=== PATIENT | male | born 1955 | race Hispanic/Latino ===

== ENCOUNTER 2017-08-12 11:55 | Inpatient (IN) | payer MEDICARE, OTHER ==
[~2017-08-12] VITALS: Ht 177.8 cm; Wt 102.1 kg
[~2017-08-12 11:55] MED LIST: ADVAIR 250-501 EACH; ADVAIR 250-501 EACH INH; ALLOPURINOL100 MG PO; AMLODIPINE BESY10 MG PO; ASPIR 8181 MG PO; ATORVASTATIN CA20 MG PO; ATORVASTATIN CA80 MG PO; BIDIL TABLET1 EACH PO; COMBIVENT RESPIM4 GM IH; COREG12.5 MG PO; GLIMEPIRIDE2 MG PO; HUMULIN R100 UNIT/2; Insulin Detemir SQ; LANTUS100 UNITS/ SQ; LASIX40 MG PO; LASIX80 MG PO; LEVAQUIN250 MG PO; LORATADINE10 MG PO; METOLAZONE5 MG PO; MIRALAX17 GM PO; MUCINEX DM ER1 EACH PO; NAC600 MG PO; NOVOLOG100 UNITS1 SQ; PLAVIX75 MG PO; PROTONIX40 MG/ML PO; SERTRALINE HCL25 MG PO; SODIUM BICARBO650 MG PO; SODIUM POL15 GM/60 M PO; SPIRONOLACTONE25 MG PO; TYLENOL # 31 EA PO
[2017-08-12] MEDS ORDERED: ASPIRIN 81 MG CHEW TAB PO ONE ×2 (12:45→14:45)
[2017-08-12] MEDS ORDERED: ASPIRIN 325 MG TAB PO ONE (12:45)
[2017-08-12] MEDS ORDERED: ACETAMINOPHEN 1000 MG/100 ML IV STA (12:47)
[2017-08-12] MEDS ORDERED: ALBUTEROL/IPRATROPIUM 3 ML NEB NEB ONE (13:00)
[2017-08-12] MEDS ORDERED: IPRATROPIUM BROMIDE 0.02% 2.5 ML NEB NEB ONE (13:00)
--- NOTE | 2017-08-12 13:29 | Diagnostic Imaging Report ---
EXAMINATION: CHEST SINGLE (PORTABLE) INDICATION: \S\SOB \S\[id number] \S\1240 COMPARISON: Chest radiograph 02/04/2017 FINDINGS: AP view TUBES and LINES: AICD is again noted. Previously leads overlying the right atrium and coronary sinus are currently difficult to visualize, likely secondary to film underpenetration and portable technique. LUNGS: Lungs are well inflated. Increased hilar fullness and interstitial opacities. PLEURA: No pleural effusion or pneumothorax. HEART AND MEDIASTINUM: Stable enlargement of the cardiac silhouette. BONES AND SOFT TISSUES: No acute findings. UPPER ABDOMEN: No free air under the diaphragm. IMPRESSION: Interstitial edema with stable cardiomegaly. Signed by: DR. Sandro Avelar MD on 08/12/2017 1:26 PM
[2017-08-12 13:35] LABS: BASOPHILS # (AUTO) 0.1 (0.0-0.1); BASOPHILS % 0.3 % (0.0-1.0); EOSINOPHILS # (AUTO) 0.2 (0.0-0.4); EOSINOPHILS % 1.5 % (0.0-6.0); HEMATOCRIT 39.3 % (38.2-49.6); HEMOGLOBIN 13.3 g/dL (14.0-18.0); LYMPHOCYTES # (AUTO) 1.7 (1.0-3.2); LYMPHOCYTES % 10.8 % (18.0-39.1); MEAN CORPUSCULAR HEMOGLOBIN 30.3 pg (28-32); MEAN CORPUSCULAR HGB CONC 33.8 g/dL (31-35); MEAN CORPUSCULAR VOLUME 89.5 fL (81-99); MONOCYTES # (AUTO) 1.1 (0.2-0.8); MONOCYTES % 6.8 % (4.4-11.3); NEUTROPHILS # (AUTO) 12.8 (2.1-6.9); PLATELET COUNT 174 x10e3/uL (140-360); RED BLOOD COUNT 4.39 x10e6/uL (4.3-5.7); RED CELL DISTRIBUTION WIDTH 13.2 % (11.7-14.4)
[2017-08-12 13:37] LABS: INR 0.93; PROTHROMBIN TIME 12.9 seconds (11.9-14.5)
[2017-08-12 13:38] LABS: PARTIAL THROMBOPLASTIN TIME 32.3 seconds (23.8-35.5)
[2017-08-12 13:45] LABS: ALBUMIN 3.7 g/dL (3.5-5.0); ALBUMIN/GLOBULIN RATIO 0.9 (0.8-2.0); ANION GAP 14.7 mmol/L (8-16); CALCIUM 10.2 mg/dL (8.4-10.2); CREATININE, SERUM 2.75 mg/dL (0.72-1.25); POTASSIUM 3.7 mmol/L (3.5-5.1)
[2017-08-12 13:52] LABS: CREATINE KINASE MB 3.3 ng/mL (0.00-5.00); TROPONIN I 0.209 ng/mL (0-0.300)
[2017-08-12] MEDS ORDERED: SODIUM CHLORIDE FLUSH 10 ML SYR INJ PRN (14:45)
[2017-08-12] MEDS ORDERED: AZITHROMYCIN 500MG/SOD CHL 0.9% 250ML BAG IV SCH (14:45)
[2017-08-12] MEDS ORDERED: CEFTRIAXONE SOD 1 GM VIAL IV SCH (14:45)
[2017-08-12] MEDS ORDERED: DEXTROSE 50% SYRINGE 50 ML IV PRN (14:45)
[2017-08-12] MEDS ORDERED: AZITHROMYCIN 500MG/NS 250 ML 250 ML IV SCH (15:00)
[2017-08-12] MEDS ORDERED: CARVEDILOL 12.5 MG TAB PO SCH (17:00)
[2017-08-12] MEDS ORDERED: POLYETHYLENE GLYCOL 3350 17 GM PACK PO PRN (17:00)
[2017-08-12] MEDS: INSULIN REGULAR, HUMAN 100 UNIT/1 ML 3ML VIAL SQ SCH ×2 (17:13→21:17)
[2017-08-12] MEDS: SALMETEROL/FLUTICASONE 250/50 INH SCH (17:13)
[2017-08-12] MEDS ORDERED: ALBUTEROL/IPRATROPIUM 3 ML NEB NEB PRN (17:15)
[2017-08-12] MEDS: CARVEDILOL 12.5 MG TAB PO SCH (17:27)
[2017-08-12] MEDS: GUAIFENESIN 600MG/DEXTROMETHORPHAN 30MG TABSR PO SCH ×2 (17:27→23:39)
[2017-08-12] MEDS: ALLOPURINOL 100 MG TAB PO SCH (17:27)
[2017-08-12] MEDS ORDERED: NON-FORMULARY MEDICATION (Ipratropium/Albuterol Sulfate (Combivent Respimat Inhal Spray) 4 IH SCH (18:00)
[2017-08-12] MEDS: IPRATROPIUM/ALBUTEROL SULFATE 4 GM INH INH SCH (18:31)
--- NOTE | 2017-08-12 18:45 | History and Physical ---
HISTORY OF PRESENT ILLNESS: A 52-year-old male patient of mine who presented to the emergency room with a complaint of worsening shortness of breath that started 7 days ago. The patient was having severe shortness of breath and cough with fever. The patient was also having worsening shortness of breath on laying down. The patient has to . The patient also leg swelling. PAST MEDICAL HISTORY: Diabetes mellitus, CHF, hypertensive heart disease, renal failure. PAST SURGICAL HISTORY: The patient had appendectomy, cardiac stent and pacemaker placement. ALLERGIES: NO KNOWN DRUG ALLERGIES. SOCIAL HISTORY: The patient is a former smoker and is not using any alcohol. REVIEW OF SYSTEMS: Chest pain, shortness of breath, cough, wheezing, fever. PHYSICAL EXAMINATION GENERAL: A middle-aged male patient lying in the bed, not in any acute distress. VITAL SIGNS: Temperature 98.5, pulse rate 85, respiratory rate 18, blood pressure 130/80. HEENT: Normocephalic. NECK: No JVD present. LUNGS: Bilateral rhonchi and rales. HEART: S1, S2, regular, a systolic murmur. ABDOMEN: Soft, bowel sounds present. NEUROLOGIC: No focal neurological deficit. ADMITTING IMPRESSION AND DIAGNOSES 1. Acute respiratory insufficiency, requiring BiPAP mask ventilation. 2. Acute pulmonary edema. 3. Congestive heart failure, diastolic with systolic dysfunction. 4. Gwqvw-qw-fgwxfrp possibility of underlying pneumonia. 5. Worsening renal failure. 6. Chronic obstructive pulmonary disease. 7. Diabetes mellitus. 8. Hypertension. 9. Hyperlipidemia. PLAN: The patient will be admitted with the above diagnosis. Treat the patient with IV antibiotics with IV Rocephin and azithromycin. Give IV Lasix. Monitor renal function. Give the patient BiPAP mask ventilation. Job#: [id number]
--- NOTE | 2017-08-12 19:40 | Consultation ---
DATE OF CONSULTATION: August 12, 2017 An unfortunate 62-year-old gentleman admitted with sudden onset of chills, but no fever, history of swelling, history of recurrent pneumonias in the past, history of heart failure, history of chronic kidney disease and solitary kidney, history of presumed obstructive sleep apnea, history of insulin-dependent diabetes. He cannot recall all of his medications. ALLERGIES: NO KNOWN DRUG ALLERGIES. According to record, he takes Allopurinol, amlodipine, aspirin, Lipitor, Coreg, Plavix, Advair, Amaryl, Guaifenesin DM, insulin, Combivent, Ismo, Isordil and hydralazine. Recently on levofloxacin. He has been on Loratadine, Protonix, MiraLAX, sertraline, sodium bicarbonate. SOCIAL HISTORY: He was born in [place]. He is retired from the [employer]. PHYSICAL EXAMINATION GENERAL: He is a well-developed, burly, somewhat obese white male, sitting up. He has now been tolerating BiPAP which he required earlier for respiratory distress. VITAL SIGNS: Temperature 98.5, pulse 90, respirations 18, blood pressure 145/70. HEENT: Normocephalic, atraumatic. NECK: Full. LUNGS: Diminished breath sounds, a few rales. HEART: Regular rhythm. ABDOMEN: Nontender. EXTREMITIES: Trace edema. IMPRESSION 1. Pneumonia. 2. Congestive heart failure. PLAN: Cautious diuresis, broad-spectrum antibiotics for community-acquired pneumonia and to cover Staph aureus. Thank you for this kind referral. Job#: [id number]
[2017-08-12] MEDS: ALBUTEROL/IPRATROPIUM 3 ML NEB NEB SCH (20:50)
[2017-08-12] MEDS ORDERED: SODIUM BICARBONATE 650 MG TAB PO SCH (21:00)
[2017-08-12] MEDS ORDERED: NON-FORMULARY MEDICATION (Atorvastatin Calcium 80 MG) PO SCH (21:00)
[2017-08-12] MEDS ORDERED: HYDRALAZINE HCL PO SCH (21:00)
[2017-08-12] MEDS ORDERED: INSULIN DETEMIR LEVEMIR SQ SCH (21:00)
[2017-08-12] MEDS ORDERED: ISOSORB DINIT PO SCH (21:00)
[2017-08-12 21:12] LABS: CREATINE KINASE MB 2.5 ng/mL (0.00-5.00); TROPONIN I 0.207 ng/mL (0-0.300)
[2017-08-12] MEDS: SODIUM BICARBONATE 650 MG TAB PO SCH (21:16)
[2017-08-12] MEDS: DOXYCYCLINE HYCLATE TABLET 100 MG TAB PO SCH (21:16)
[2017-08-12] MEDS: HEPARIN SOD (PORCINE) 5,000 UNIT/ML VIAL SC SCH (21:16)
[2017-08-12] MEDS: HYDRALAZINE PO SCH (21:16)
[2017-08-12] MEDS: ATORVASTATIN 40 MG TAB PO SCH (21:16)
[2017-08-12] MEDS: ISOSORBIDE DINITRATE PO SCH (21:16)
[2017-08-12] MEDS: INSULIN DETEMIR 100 UNIT/ML PEN SQ SCH (21:17)
[2017-08-12] MEDS: INSULIN LISPRO 100 UNIT/1 ML 3ML VIAL SQ SCH (21:17)
[2017-08-12 23:54] LABS: BILIRUBIN,URINE NEGATIVE (NEGATIVE); KETONES,URINE NEGATIVE (NEGATIVE); LEUKOCYTE ESTERASE ,URINE NEGATIVE (NEGATIVE); NITRITE,URINE NEGATIVE (NEGATIVE); PROTEIN,URINE DIPSTICK NEGATIVE (NEGATIVE); URINE UROBILINOGEN 0.2 mg/dL (0.2 - 1)
[2017-08-12 23:55] LABS: CLARITY,URINE CLEAR (CLEAR); COLOR,URINE YELLOW (YELLOW)
[2017-08-13 00:05] LABS: BACTERIA,URINE RARE /HPF; EPITHELIAL CELLS,URINE RARE /LPF; RBC,URINE 0-5 /HPF (0-5); WBC,URINE (MAN) 0-5 /HPF (0-5)
[2017-08-13] MEDS: ALBUTEROL/IPRATROPIUM 3 ML NEB NEB SCH ×3 (03:02→11:45)
[2017-08-13 06:14] LABS: BASOPHILS % 0.2 % (0.0-1.0); EOSINOPHILS # (AUTO) 0.3 (0.0-0.4); EOSINOPHILS % 1.4 % (0.0-6.0); HEMATOCRIT 37.7 % (38.2-49.6); HEMOGLOBIN 12.5 g/dL (14.0-18.0); LYMPHOCYTES # (AUTO) 1.6 (1.0-3.2); LYMPHOCYTES % 8.9 % (18.0-39.1); MEAN CORPUSCULAR HEMOGLOBIN 30.1 pg (28-32); MEAN CORPUSCULAR HGB CONC 33.2 g/dL (31-35); MEAN CORPUSCULAR VOLUME 90.8 fL (81-99); MONOCYTES # (AUTO) 1.3 (0.2-0.8); MONOCYTES % 7.2 % (4.4-11.3); NEUTROPHILS # (AUTO) 14.4 (2.1-6.9); NEUTROPHILS % 81.8 % (38.7-80.0); PLATELET COUNT 184 x10e3/uL (140-360); RED BLOOD COUNT 4.15 x10e6/uL (4.3-5.7); RED CELL DISTRIBUTION WIDTH 13.3 % (11.7-14.4)
--- NOTE | 2017-08-13 06:32 | Diagnostic Imaging Report ---
EXAMINATION: CHEST SINGLE (PORTABLE) INDICATION: Pneumonia. COMPARISON: 08/12/2017 and 05/18/2017 FINDINGS: TUBES and LINES: AICD is intact. LUNGS: Lungs are not well inflated. There are bibasilar atelectasis. There is interval improvement in perihilar interstitial opacities, consistent with interstitial edema. PLEURA: No pleural effusion or pneumothorax. HEART AND MEDIASTINUM: Cardiac size is moderately enlarged. There are atherosclerotic calcifications within the aorta. BONES AND SOFT TISSUES: No acute osseous lesion. Soft tissues are unremarkable. UPPER ABDOMEN: No free air under the diaphragm. IMPRESSION: Interval improvement in cardiogenic pulmonary edema Signed by: Dr. Jose Jaime M.D. on 08/13/2017 6:28 AM
[2017-08-13 06:42] LABS: ALBUMIN 3.4 g/dL (3.5-5.0); ALBUMIN/GLOBULIN RATIO 0.9 (0.8-2.0); ANION GAP 13.9 mmol/L (8-16); CALCIUM 9.8 mg/dL (8.4-10.2); CREATININE, SERUM 2.55 mg/dL (0.72-1.25); MAGNESIUM 2.5 MG/DL (1.3-2.1); POTASSIUM 3.9 mmol/L (3.5-5.1)
[2017-08-13 06:43] LABS: TROPONIN I 0.198 ng/mL (0-0.300)
[2017-08-13] MEDS: GUAIFENESIN 600MG/DEXTROMETHORPHAN 30MG TABSR PO SCH ×4 (07:28→23:45)
[2017-08-13] MEDS: IPRATROPIUM/ALBUTEROL SULFATE 4 GM INH INH SCH ×4 (07:28→19:00)
[2017-08-13] MEDS: PANTOPRAZOLE SOD 40 MG TABEC PO SCH (07:29)
[2017-08-13] MEDS: CARVEDILOL 12.5 MG TAB PO SCH ×2 (07:29→17:15)
[2017-08-13] MEDS: SPIRONOLACTONE 25 MG TAB PO SCH (07:29)
[2017-08-13] MEDS: SALMETEROL/FLUTICASONE 250/50 INH SCH (07:29)
[2017-08-13] MEDS: CEFTRIAXONE SOD 1 GM VIAL IV SCH (07:29)
[2017-08-13] MEDS: INSULIN REGULAR, HUMAN 100 UNIT/1 ML 3ML VIAL SQ SCH ×4 (07:29→21:32)
[2017-08-13] MEDS: METOLAZONE 5 MG TAB PO SCH (07:30)
[2017-08-13] MEDS: ASPIRIN 81 MG CHEW TAB PO SCH (07:30)
[2017-08-13] MEDS: CLOPIDOGREL BISULFATE 75 MG TAB PO SCH (07:30)
[2017-08-13] MEDS: ALLOPURINOL 100 MG TAB PO SCH ×2 (07:30→17:27)
[2017-08-13] MEDS: AMLODIPINE BESYLATE 10 MG TAB PO SCH (07:30)
[2017-08-13] MEDS: LORATADINE 10 MG TAB PO SCH (07:33)
[2017-08-13] MEDS: INSULIN LISPRO 100 UNIT/1 ML 3ML VIAL SQ SCH ×3 (07:34→21:00)
[2017-08-13] MEDS: DOXYCYCLINE HYCLATE TABLET 100 MG TAB PO SCH ×2 (07:34→20:37)
[2017-08-13] MEDS: SODIUM BICARBONATE 650 MG TAB PO SCH ×3 (07:34→20:37)
[2017-08-13] MEDS: SERTRALINE HCL 50 MG TAB PO SCH (07:34)
[2017-08-13] MEDS: INSULIN DETEMIR 100 UNIT/ML PEN SQ SCH ×2 (07:34→21:32)
[2017-08-13] MEDS: HYDRALAZINE PO SCH ×3 (07:34→20:37)
[2017-08-13] MEDS: HEPARIN SOD (PORCINE) 5,000 UNIT/ML VIAL SC SCH ×2 (07:34→21:31)
[2017-08-13] MEDS: ISOSORBIDE DINITRATE PO SCH ×3 (07:34→20:37)
[2017-08-13] MEDS ORDERED: GLIMEPIRIDE 2 MG TAB PO SCH (09:00)
[2017-08-13] MEDS ORDERED: NON-FORMULARY MEDICATION (Sertraline Hcl 25 MG) PO SCH (09:00)
[2017-08-13] MEDS ORDERED: FUROSEMIDE 40 MG TAB PO SCH (09:00)
[2017-08-13] MEDS ORDERED: HOME MEDICATION--PATIENTS OWN PO SCH (09:00)
[2017-08-13] MEDS ORDERED: FUROSEMIDE INJ 10 MG/ML 4 ML VIAL IV NR (10:30)
--- NOTE | 2017-08-13 13:12 | Consultation ---
DATE OF CONSULTATION: August 13, 2017 REASON FOR CONSULTATION: CHF. CHIEF COMPLAINT: Shortness of breath. HISTORY OF PRESENT ILLNESS: This is a 62-year-old male with a history of CAD, status post PCI in 2007, chronic systolic CHF, status post bi-V pacemaker/defibrillator in 2014, hypertension, diabetes, COPD, chronic kidney disease stage 4, WILMA. The patient presented to [facility] ER with complaints of shortness of breath for about 7 days and cough with subjective fevers. The symptoms had worsened. Therefore, he came to the ER for evaluation. The patient was in the ER on BiPAP therapy. He does state the breathing is slightly better since he has been here. On labs, BNP was noted at 1145. He has been receiving Lasix diuretic therapy with improved symptoms. Also was noted with white count of 17 and has been treated for possible pneumonia. The patient reports 7 days of cough and shortness of breath with subjective fevers. He denies any sick contacts at home. He does also report some orthopnea and some mild lower extremity edema, reports right greater than left. He denies any chest pains. PAST MEDICAL HISTORY: Hypertension, diabetes, CHF, coronary artery disease status post PCI in 2007, biventricular device with defibrillator in 2014, COPD, WILMA, chronic kidney disease stage 4. Ex-smoker. SURGICAL HISTORY: Appendectomy, biventricular device, cardiac stents, tonsils and adenoids. SOCIAL HISTORY: He is with 4 kids. Retired from the [employer] from [employer]. He quit smoking in 2009. He did smoke, however, about 3 packs per day times 40 years. Positive for alcohol use, occasional beer. FAMILY HISTORY: Positive for hypertension, diabetes and heart disease. ALLERGIES: NO KNOWN ALLERGIES. MEDICATIONS: Cardiac medications include: 1. Spironolactone 50 mg daily. 2. Amlodipine 10 mg daily. 3. Metolazone 5 mg on Thursday, Thursday and Thursday. 4. Aspirin 81 mg daily. 5. Lasix 80 mg twice a day. 6. Plavix 75 mg daily. 7. Atorvastatin 80 mg daily. 8. Carvedilol 25 mg daily. REVIEW OF SYSTEMS GENERAL: Denies any weight gains. Positive for fever and chills. No night sweats. SKIN: Denies any rashes or sores. HEENT: No trauma. No nausea or vomiting. No visual changes. No vertigo, tinnitus or earache. No rhinorrhea, stuffiness, sneezing, epistaxis, hoarseness, sore throat. CARDIAC: Denies any chest pain. Positive for dyspnea on exertion. No palpitations. Positive for orthopnea. No PND. Positive for lower extremity edema. RESPIRATORY: Positive for shortness of breath per HPI. Positive for cough. GI: No changes in appetite. No nausea or vomiting. No diarrhea or constipation. No bleeding, hemoptysis, melena. URINARY: Positive for frequency and urgency. Denies any dysuria or hematuria. VASCULAR: Positive for lower extremity leg edema, right greater than left. MUSCULOSKELETAL: Denies any muscle weakness. Positive for generalized joint pains. NEUROLOGIC: Denies any tingling, tremors, weakness, paralysis, blackouts, fainting, seizures. HEMATOLOGY: Denies any bruising or bleeding. ENDOCRINE: Denies any heat or cold intolerance, any excessive sweating, polyuria, polydipsia or polyphagia. PHYSICAL EXAMINATION VITAL SIGNS: Height 70 inches, weight 225 pounds. Blood pressure 138/78, respiratory rate 20, pulse 83, temperature 98.8. GENERAL: Appears his stated age. In some moderate distress. SKIN: No rashes or bruises noted. HEENT: Normocephalic. Pupils are equal and reactive. The extraocular movements are intact. Trachea is midline. Oral mucosa is pink. On BiPAP therapy. NECK: No JVD. No carotid bruits. HEART: Regular rate and rhythm. Soft systolic murmur, right upper quadrant. PMI in about the 5th intercostal space. ABDOMEN: Soft, nontender. No organomegaly noted; however, he is obese. MUSCULOSKELETAL: Good muscle strength throughout. VASCULAR: +2 radial bilateral pulses, +1 PT and DP pulses. NEUROLOGIC: Cranial nerves II through XII seem intact. LABS: White count 17, hemoglobin 12, hematocrit 37, platelets 184. Chemistry: Sodium 142, potassium 3.9, chloride 106, BUN 83, creatinine 2.5. Troponin 0.2, next 0.2, next 0.19. BNP 1145. IMAGING: Chest x-ray showing interstitial edema. EKG showing V-paced rhythm at 140. ASSESSMENT 1. Respiratory failure secondary to pneumonia. 2. Vqdcg-re-hwjqjtg congestive heart failure exacerbation. 3. Chronic obstructive pulmonary disease. 4. Venra-is-qpsbrzr kidney disease, stage 4. 5. Hypertension. 6. Hyperlipidemia. 7. Diabetes. 8. Ex-smoker. PLAN 1. Agree with continuing antibiotic therapy for presumed pneumonia/COPD exacerbation. 2. Continue heart failure therapy with spironolactone, Lasix, carvedilol. 3. Will go ahead and get an echo to evaluate heart function and structure. 4. Continue tele monitoring for now. 5. Renal has been consulted to aid in this patient with known chronic kidney disease. Thank you very much for this consult. We will follow the patient and adjust cardiac therapy as the course progresses. Dictated by: Silver James NP Job#: [id number] SEEN AND EVALUATED IN er, AGREE WITH NOTE MTDD
--- NOTE | 2017-08-13 14:09 | Consultation ---
DATE OF CONSULTATION: August 13, 2017 REASON FOR CONSULTATION: Chronic kidney disease stage 4. HPI: Mr. Fortune is a 62-year-old man with COPD, hypertension, hyperlipidemia, insulin-dependent diabetes and CHF. He missed his last appointment as he stated he did not have transportation. Over the past few days, he has a progressively worsening shortness of breath. It worsens with lying flat and improves with sitting up. It is not associated with cough or fevers, although yesterday he was having chills. There is no recent travel or sick contacts at home. He continues to take the Lasix and spironolactone that he is on at home during this time. He has not had a recent change in diet. He has a history of stage 4 CKD. His baseline creatinine has ranged from the 2.3 to 2.8 mg/dL. Upon presentation, creatinine yesterday was 2.7 mg/dL and today is 2.5 mg/dL. He has been started on IV diuresis. REVIEW OF SYSTEMS: Denies fevers, chills, nausea, vomiting, diarrhea, chest pain, palpitations, abdominal pain, pain or burning with urination, numbness or tingling in upper or lower extremities, change in mood, change in appetite, changes in thirst. Otherwise, the 14-point review of systems is negative. PAST MEDICAL HISTORY 1. Diabetes. 2. Hypertension. 3. Hyperlipidemia. 4. COPD. 5. Congestive heart failure. PAST SURGICAL HISTORY: Appendectomy, cardiac catheterization, pacemaker placement. ALLERGIES: NO KNOWN DRUG ALLERGIES. FAMILY HISTORY: No renal disease in the family. SOCIAL HISTORY: No alcohol, tobacco or illicit drug use. PHYSICAL EXAMINATION GENERAL: He seems to be in respiratory distress, currently on BiPAP. VITAL SIGNS: Temperature 98.8, heart rate 81, respiratory rate 20, O2 sat is 100% on BiPAP, blood pressure 138/78 mmHg. HEENT: NC, AT, EOMI. PERRLA. NECK: Positive for distended jugular venous pulse. Supple. LUNGS: Crackles at the bases bilaterally, no wheezing. HEART: Tachycardic. Regular rate and rhythm. ABDOMEN: Soft, distended. Positive bowel sounds. EXTREMITIES: Positive for pitting edema, intact pulses. NEURO: Cranial nerves II through XII are grossly intact. No focal deficits. SKIN: No rashes or lesions. MUSCULOSKELETAL: Normal inspection. LABS: Reviewed on electronic medical record. Significant for a white blood cell count of 16 with a hemoglobin of 12.5 and platelets of 184 with BUN of 83 and creatinine of 2.5 mg/dL. IMAGING: Reviewed on electronic medical record. Chest x-ray performed early today showed interval improvement in cardiogenic pulmonary edema. ASSESSMENT AND PLAN: Mr. Fortune is a 62-year-old man who presents with acute respiratory failure in the setting of irckg-qw-procsuj systolic heart failure. 1. Chronic kidney disease stage 4, currently has baseline renal function. Continue to avoid contrast, NSAIDs especially in the setting of volume overload. 2. Metabolic acidosis. Continue sodium bicarbonate. 3. Acute respiratory failure. We will switch Lasix to IV b.i.d. Based on current GFR, current dose of Lasix will not penetrate the tubules. 4. Accelerated hypertension. Continue Coreg. 5. Possible community-acquired pneumonia, has received the dose of ceftriaxone and azithromycin and currently on doxycycline. Thank you, for allowing me to participate in the care of patient, Mr. Fortune. I will continue to follow closely. Job#: [id number] VAS MTDD
[2017-08-13 15:15] VITALS: BP 149/83
[2017-08-13 15:16] VITALS: BP 142/85
[2017-08-13 17:37] VITALS: BP 140/85
[2017-08-13 19:00] VITALS: BP 135/82
[2017-08-13] MEDS: FUROSEMIDE INJ 10 MG/ML 4 ML VIAL IV SCH (20:36)
[2017-08-13] MEDS: METHYLPREDNISOLONE SOD SUCC 40 MG/ML VIAL IV SCH (20:36)
[2017-08-13] MEDS: ATORVASTATIN 40 MG TAB PO SCH (20:37)
[2017-08-13] MEDS: ACETAMINOPHEN 325 MG TAB PO PRN (21:15)
[2017-08-14] VITALS (7 sets, daily range): BP systolic 120–148; BP diastolic 61–82
[2017-08-14] MEDS: GUAIFENESIN 600MG/DEXTROMETHORPHAN 30MG TABSR PO SCH ×3 (05:36→18:06)
[2017-08-14 06:25] LABS: BASOPHILS % 0.3 % (0.0-1.0); EOSINOPHILS # (AUTO) 0.2 (0.0-0.4); EOSINOPHILS % 1.8 % (0.0-6.0); HEMATOCRIT 35.4 % (38.2-49.6); HEMOGLOBIN 11.6 g/dL (14.0-18.0); LYMPHOCYTES # (AUTO) 1.5 (1.0-3.2); LYMPHOCYTES % 11.5 % (18.0-39.1); MEAN CORPUSCULAR HEMOGLOBIN 29.9 pg (28-32); MEAN CORPUSCULAR HGB CONC 32.8 g/dL (31-35); MEAN CORPUSCULAR VOLUME 91.2 fL (81-99); MONOCYTES # (AUTO) 1.1 (0.2-0.8); MONOCYTES % 8.6 % (4.4-11.3); NEUTROPHILS # (AUTO) 10.1 (2.1-6.9); NEUTROPHILS % 77.3 % (38.7-80.0); PLATELET COUNT 163 x10e3/uL (140-360); RED BLOOD COUNT 3.88 x10e6/uL (4.3-5.7); RED CELL DISTRIBUTION WIDTH 13.1 % (11.7-14.4)
[2017-08-14 06:48] LABS: ALBUMIN/GLOBULIN RATIO 0.8 (0.8-2.0); CALCIUM 9.8 mg/dL (8.4-10.2); CREATININE, SERUM 3.02 mg/dL (0.72-1.25); PHOSPHORUS 4.3 MG/DL (2.3-4.7)
[2017-08-14] MEDS: IPRATROPIUM/ALBUTEROL SULFATE 4 GM INH INH SCH ×2 (07:17→19:00)
[2017-08-14] MEDS: INSULIN REGULAR, HUMAN 100 UNIT/1 ML 3ML VIAL SQ SCH ×4 (07:30→21:00)
[2017-08-14] MEDS: SALMETEROL/FLUTICASONE 250/50 INH SCH ×2 (07:45→21:35)
[2017-08-14] MEDS: INSULIN LISPRO 100 UNIT/1 ML 3ML VIAL SQ SCH ×3 (07:45→17:45)
[2017-08-14] MEDS: PANTOPRAZOLE SOD 40 MG TABEC PO SCH (08:30)
[2017-08-14] MEDS: ALBUTEROL/IPRATROPIUM 3 ML NEB NEB SCH ×4 (08:30→23:00)
[2017-08-14] MEDS: GLIMEPIRIDE 2 MG TAB PO SCH (08:30)
[2017-08-14] MEDS: ISOSORBIDE DINITRATE PO SCH ×3 (09:00→22:11)
[2017-08-14] MEDS: INSULIN DETEMIR 100 UNIT/ML PEN SQ SCH ×2 (09:00→22:12)
[2017-08-14] MEDS: HEPARIN SOD (PORCINE) 5,000 UNIT/ML VIAL SC SCH ×2 (09:00→22:12)
[2017-08-14] MEDS: HYDRALAZINE PO SCH ×3 (09:00→22:11)
[2017-08-14] MEDS: METHYLPREDNISOLONE SOD SUCC 40 MG/ML VIAL IV SCH (09:00)
[2017-08-14] MEDS: CARVEDILOL 12.5 MG TAB PO SCH ×2 (09:22→18:06)
[2017-08-14] MEDS: SPIRONOLACTONE 25 MG TAB PO SCH (09:22)
[2017-08-14] MEDS: ASPIRIN 81 MG CHEW TAB PO SCH (09:22)
[2017-08-14] MEDS: FUROSEMIDE INJ 10 MG/ML 4 ML VIAL IV SCH ×2 (09:22→22:10)
[2017-08-14] MEDS: CEFTRIAXONE SOD 1 GM VIAL IV SCH (09:22)
[2017-08-14] MEDS: LORATADINE 10 MG TAB PO SCH (09:22)
[2017-08-14] MEDS: METOLAZONE 5 MG TAB PO SCH (09:23)
[2017-08-14] MEDS: AMLODIPINE BESYLATE 10 MG TAB PO SCH (09:23)
[2017-08-14] MEDS: DOXYCYCLINE HYCLATE TABLET 100 MG TAB PO SCH ×2 (09:23→22:11)
[2017-08-14] MEDS: CLOPIDOGREL BISULFATE 75 MG TAB PO SCH (09:23)
[2017-08-14] MEDS: ALLOPURINOL 100 MG TAB PO SCH ×2 (09:23→18:06)
[2017-08-14] MEDS: SERTRALINE HCL 50 MG TAB PO SCH (09:23)
[2017-08-14] MEDS: SODIUM BICARBONATE 650 MG TAB PO SCH ×3 (09:23→22:11)
[2017-08-14 10:33] LABS: CHOL/HDL RATIO 2.9 (3.9-4.7)
[2017-08-14] MEDS: ACETAMINOPHEN 325 MG TAB PO PRN (12:06)
--- NOTE | 2017-08-14 14:30 | Progress Note ---
DATE: August 14, 2017 REASON FOR CONSULTATION: CKD, stage 4. SUBJECTIVE: The patient has no complaints today. Breathing has improved considerably. OBJECTIVE GENERAL: Patient is sitting comfortably on chair on nasal cannula. VITAL SIGNS: Temperature 98.4, heart rate 81, respiratory rate 18, blood pressure 128/69. O2 sat is 99% on nasal cannula. HEENT: NC, AT, EOMI. LUNGS: Crackles at the bases bilaterally. ABDOMEN: Soft, distended. Positive bowel sounds. EXTREMITIES: Positive for edema. LABS: Reviewed on electronic medical record. Significant for a hemoglobin of 11.6, BUN 94, creatinine 3.0, bicarb 29. IMAGING: Reviewed on electronic medical record. Chest x-ray performed yesterday showed interval improvement in cardiogenic pulmonary edema. ASSESSMENT AND PLAN: This 62-year-old man with chronic kidney disease, stage 4, presents with acute respiratory failure in the setting of pulmonary edema. 1. Chronic kidney disease stage 4. Continue to avoid contrast and NSAIDs. At baseline renal function. 2. Acute respiratory failure. Continue Lasix 80 mg IV q.12 h. Kidney function may slightly worsen while we are trying to diurese, and it has been difficult to balance even as an outpatient to keep him dry without causing worsening renal function. 3. Metabolic acidosis. Continue sodium bicarbonate. 4. Community-acquired pneumonia on ceftriaxone and azithromycin. Job#: [id number]
[2017-08-14] MEDS: ATORVASTATIN 40 MG TAB PO SCH (22:11)
[2017-08-15] VITALS (7 sets, daily range): BP systolic 109–147; BP diastolic 61–80
[2017-08-15] MEDS: GUAIFENESIN 600MG/DEXTROMETHORPHAN 30MG TABSR PO SCH ×4 (00:14→16:57)
[2017-08-15] MEDS: ALBUTEROL/IPRATROPIUM 3 ML NEB NEB SCH ×6 (02:19→23:21)
[2017-08-15 05:46] LABS: BASOPHILS # (AUTO) 0.1 (0.0-0.1); BASOPHILS % 0.4 % (0.0-1.0); EOSINOPHILS # (AUTO) 0.4 (0.0-0.4); EOSINOPHILS % 2.7 % (0.0-6.0); HEMATOCRIT 34.5 % (38.2-49.6); HEMOGLOBIN 11.6 g/dL (14.0-18.0); LYMPHOCYTES # (AUTO) 1.9 (1.0-3.2); LYMPHOCYTES % 14.4 % (18.0-39.1); MEAN CORPUSCULAR HEMOGLOBIN 30.4 pg (28-32); MEAN CORPUSCULAR HGB CONC 33.6 g/dL (31-35); MEAN CORPUSCULAR VOLUME 90.6 fL (81-99); MONOCYTES % 7.9 % (4.4-11.3); NEUTROPHILS # (AUTO) 9.7 (2.1-6.9); NEUTROPHILS % 74.2 % (38.7-80.0); PLATELET COUNT 191 x10e3/uL (140-360); RED BLOOD COUNT 3.81 x10e6/uL (4.3-5.7); RED CELL DISTRIBUTION WIDTH 13.2 % (11.7-14.4)
[2017-08-15 06:07] LABS: ALBUMIN 3.1 g/dL (3.5-5.0); ALBUMIN/GLOBULIN RATIO 0.8 (0.8-2.0); ANION GAP 18.7 mmol/L (8-16); CALCIUM 9.9 mg/dL (8.4-10.2); CREATININE, SERUM 3.26 mg/dL (0.72-1.25); PHOSPHORUS 5.7 MG/DL (2.3-4.7); POTASSIUM 3.7 mmol/L (3.5-5.1)
[2017-08-15] MEDS: ACETAMINOPHEN 325 MG TAB PO PRN ×2 (06:36→18:13)
[2017-08-15] MEDS: PANTOPRAZOLE SOD 40 MG TABEC PO SCH (06:36)
[2017-08-15] MEDS: IPRATROPIUM/ALBUTEROL SULFATE 4 GM INH INH SCH ×4 (07:00→19:00)
[2017-08-15] MEDS: INSULIN REGULAR, HUMAN 100 UNIT/1 ML 3ML VIAL SQ SCH ×4 (07:30→21:35)
[2017-08-15] MEDS: INSULIN LISPRO 100 UNIT/1 ML 3ML VIAL SQ SCH ×3 (08:00→16:30)
[2017-08-15] MEDS: HEPARIN SOD (PORCINE) 5,000 UNIT/ML VIAL SC SCH ×2 (08:30→21:35)
[2017-08-15] MEDS: INSULIN DETEMIR 100 UNIT/ML PEN SQ SCH ×2 (08:30→22:46)
[2017-08-15] MEDS: GLIMEPIRIDE 2 MG TAB PO SCH (08:30)
[2017-08-15] MEDS: SALMETEROL/FLUTICASONE 250/50 INH SCH ×2 (09:00→20:30)
[2017-08-15] MEDS: CEFTRIAXONE SOD 1 GM VIAL IV SCH (09:05)
[2017-08-15] MEDS: METOLAZONE 5 MG TAB PO SCH (09:05)
[2017-08-15] MEDS: HYDRALAZINE PO SCH ×3 (09:05→21:40)
[2017-08-15] MEDS: ISOSORBIDE DINITRATE PO SCH ×3 (09:05→21:40)
[2017-08-15] MEDS: DOXYCYCLINE HYCLATE TABLET 100 MG TAB PO SCH ×2 (09:05→21:40)
[2017-08-15] MEDS: SODIUM BICARBONATE 650 MG TAB PO SCH ×3 (09:05→21:40)
[2017-08-15] MEDS: ALLOPURINOL 100 MG TAB PO SCH ×2 (09:05→16:20)
[2017-08-15] MEDS: AMLODIPINE BESYLATE 10 MG TAB PO SCH (09:05)
[2017-08-15] MEDS: FUROSEMIDE INJ 10 MG/ML 4 ML VIAL IV SCH (09:05)
[2017-08-15] MEDS: SPIRONOLACTONE 25 MG TAB PO SCH (09:05)
[2017-08-15] MEDS: CARVEDILOL 12.5 MG TAB PO SCH ×2 (09:05→16:20)
[2017-08-15] MEDS: CLOPIDOGREL BISULFATE 75 MG TAB PO SCH (09:05)
[2017-08-15] MEDS: SERTRALINE HCL 50 MG TAB PO SCH (09:05)
[2017-08-15] MEDS: ASPIRIN 81 MG CHEW TAB PO SCH (09:05)
[2017-08-15] MEDS: LORATADINE 10 MG TAB PO SCH (09:05)
--- NOTE | 2017-08-15 12:58 | Progress Note ---
DATE: August 15, 2017 NEPHROLOGY PROGRESS NOTE REASON FOR CONSULTATION: Chronic kidney disease stage 4. SUBJECTIVE: Patient has no complaints. States he is feeling better. Questioning when he can go home. OBJECTIVE GENERAL: Sitting comfortably. No acute distress. VITAL SIGNS: Temperature 98.2, heart rate 80, respiratory rate 17, blood pressure is 130/65. HEENT: NC/AT, EOMI. LUNGS: Clear to auscultation bilaterally. No wheezing, no rales. HEART: Regular rate and rhythm. S1 and S2 normal. EXTREMITIES: Minimal pitting edema in the lower extremities bilaterally. Imaging was reviewed in electronic medical record. Labs show a creatinine of 3.2 from 3 yesterday and 2.5 the day before. BUN of 110. ASSESSMENT AND PLAN 1. A 62-year-old man with chronic kidney disease stage 4, admitted with acute respiratory failure. At this point, lungs are completely clear and is 100% on oxygen. Request weaning down the oxygen and will switch him from Lasix 80 mg IV q.12 to p.o. Will continue the metolazone. 2. Accelerated hypertension. Improved. Continue amlodipine and Coreg. 3. Metabolic acidosis. Continue sodium bicarbonate. Job#: [id number] EV
[2017-08-15] MEDS ORDERED: HYDRALAZINE HCL 25 MG TAB PO SCH (15:00)
[2017-08-15] MEDS: FUROSEMIDE 40 MG TAB PO SCH (16:57)
[2017-08-15] MEDS: ATORVASTATIN 40 MG TAB PO SCH (21:40)
[2017-08-16 00:14] VITALS: BP 128/70
[2017-08-16] MEDS: GUAIFENESIN 600MG/DEXTROMETHORPHAN 30MG TABSR PO SCH ×4 (00:32→16:59)
[2017-08-16] MEDS: ALBUTEROL/IPRATROPIUM 3 ML NEB NEB SCH ×6 (03:18→23:03)
[2017-08-16 04:43] VITALS: BP 134/67
[2017-08-16] MEDS: FUROSEMIDE 40 MG TAB PO SCH (05:25)
[2017-08-16] MEDS: SALMETEROL/FLUTICASONE 250/50 INH SCH ×2 (07:00→19:28)
[2017-08-16] MEDS: IPRATROPIUM/ALBUTEROL SULFATE 4 GM INH INH SCH ×4 (07:00→19:00)
[2017-08-16] MEDS: INSULIN REGULAR, HUMAN 100 UNIT/1 ML 3ML VIAL SQ SCH ×4 (07:30→19:37)
[2017-08-16 08:00] VITALS: BP 148/68
[2017-08-16] MEDS: PANTOPRAZOLE SOD 40 MG TABEC PO SCH (08:07)
[2017-08-16] MEDS: GLIMEPIRIDE 2 MG TAB PO SCH (08:07)
[2017-08-16] MEDS ORDERED: ISOSORBIDE MONONITRATE 20 MG TAB PO SCH (09:00)
[2017-08-16] MEDS: CLOPIDOGREL BISULFATE 75 MG TAB PO SCH (09:20)
[2017-08-16] MEDS: ASPIRIN 81 MG CHEW TAB PO SCH (09:20)
[2017-08-16] MEDS: CARVEDILOL 12.5 MG TAB PO SCH ×2 (09:20→16:59)
[2017-08-16] MEDS: CEFTRIAXONE SOD 1 GM VIAL IV SCH (09:20)
[2017-08-16] MEDS: HYDRALAZINE PO SCH ×3 (09:20→20:36)
[2017-08-16] MEDS: AMLODIPINE BESYLATE 10 MG TAB PO SCH (09:20)
[2017-08-16] MEDS: LORATADINE 10 MG TAB PO SCH (09:20)
[2017-08-16] MEDS: ISOSORBIDE DINITRATE PO SCH ×3 (09:20→20:36)
[2017-08-16] MEDS: SERTRALINE HCL 50 MG TAB PO SCH (09:21)
[2017-08-16] MEDS: METOLAZONE 5 MG TAB PO SCH (09:21)
[2017-08-16] MEDS: DOXYCYCLINE HYCLATE TABLET 100 MG TAB PO SCH ×2 (09:21→20:36)
[2017-08-16] MEDS: ALLOPURINOL 100 MG TAB PO SCH ×2 (09:21→16:59)
[2017-08-16] MEDS: SODIUM BICARBONATE 650 MG TAB PO SCH ×3 (09:21→20:36)
[2017-08-16 09:23] VITALS: BP 148/68
[2017-08-16] MEDS: INSULIN LISPRO 100 UNIT/1 ML 3ML VIAL SQ SCH ×3 (09:33→16:30)
[2017-08-16] MEDS: INSULIN DETEMIR 100 UNIT/ML PEN SQ SCH ×2 (09:33→20:52)
[2017-08-16] MEDS: HEPARIN SOD (PORCINE) 5,000 UNIT/ML VIAL SC SCH ×2 (09:33→20:51)
[2017-08-16 12:34] LABS: BASOPHILS % 0.3 % (0.0-1.0); EOSINOPHILS # (AUTO) 0.3 (0.0-0.4); EOSINOPHILS % 2.7 % (0.0-6.0); HEMATOCRIT 32.9 % (38.2-49.6); HEMOGLOBIN 11.1 g/dL (14.0-18.0); LYMPHOCYTES # (AUTO) 1.3 (1.0-3.2); LYMPHOCYTES % 13.3 % (18.0-39.1); MEAN CORPUSCULAR HEMOGLOBIN 30.4 pg (28-32); MEAN CORPUSCULAR HGB CONC 33.7 g/dL (31-35); MEAN CORPUSCULAR VOLUME 90.1 fL (81-99); MONOCYTES # (AUTO) 0.7 (0.2-0.8); MONOCYTES % 6.9 % (4.4-11.3); NEUTROPHILS # (AUTO) 7.6 (2.1-6.9); NEUTROPHILS % 76.4 % (38.7-80.0); PLATELET COUNT 210 x10e3/uL (140-360); RED BLOOD COUNT 3.65 x10e6/uL (4.3-5.7); RED CELL DISTRIBUTION WIDTH 13.2 % (11.7-14.4)
[2017-08-16 12:51] LABS: ANION GAP 15.9 mmol/L (8-16); CALCIUM 9.4 mg/dL (8.4-10.2); CREATININE, SERUM 3.14 mg/dL (0.72-1.25); PHOSPHORUS 4.7 MG/DL (2.3-4.7); POTASSIUM 3.9 mmol/L (3.5-5.1)
[2017-08-16 15:11] VITALS: BP 147/67
[2017-08-16] MEDS: FUROSEMIDE INJ 10 MG/ML 4 ML VIAL IV SCH (16:59)
[2017-08-16 19:38] VITALS: BP 136/74
[2017-08-16] MEDS: ATORVASTATIN 40 MG TAB PO SCH (20:36)
[2017-08-17] MEDS: GUAIFENESIN 600MG/DEXTROMETHORPHAN 30MG TABSR PO SCH ×4 (00:11→17:30)
[2017-08-17 00:21] VITALS: BP 135/78
[2017-08-17] MEDS: ALBUTEROL/IPRATROPIUM 3 ML NEB NEB SCH ×6 (03:17→23:25)
[2017-08-17 05:17] VITALS: BP 152/77
[2017-08-17 06:21] LABS: BASOPHILS % 0.3 % (0.0-1.0); EOSINOPHILS # (AUTO) 0.3 (0.0-0.4); EOSINOPHILS % 2.4 % (0.0-6.0); HEMATOCRIT 34.8 % (38.2-49.6); HEMOGLOBIN 11.8 g/dL (14.0-18.0); LYMPHOCYTES # (AUTO) 1.4 (1.0-3.2); LYMPHOCYTES % 11.6 % (18.0-39.1); MEAN CORPUSCULAR HEMOGLOBIN 30.4 pg (28-32); MEAN CORPUSCULAR HGB CONC 33.9 g/dL (31-35); MEAN CORPUSCULAR VOLUME 89.7 fL (81-99); MONOCYTES # (AUTO) 0.8 (0.2-0.8); MONOCYTES % 6.5 % (4.4-11.3); NEUTROPHILS # (AUTO) 9.4 (2.1-6.9); NEUTROPHILS % 78.9 % (38.7-80.0); PLATELET COUNT 237 x10e3/uL (140-360); RED BLOOD COUNT 3.88 x10e6/uL (4.3-5.7); RED CELL DISTRIBUTION WIDTH 13.2 % (11.7-14.4)
[2017-08-17 06:42] LABS: ANION GAP 14.6 mmol/L (8-16); CALCIUM 9.8 mg/dL (8.4-10.2); CREATININE, SERUM 2.95 mg/dL (0.72-1.25); POTASSIUM 3.6 mmol/L (3.5-5.1)
[2017-08-17] MEDS: IPRATROPIUM/ALBUTEROL SULFATE 4 GM INH INH SCH ×4 (07:00→20:35)
--- NOTE | 2017-08-17 07:03 | Diagnostic Imaging Report ---
EXAMINATION: CHEST SINGLE (PORTABLE) INDICATION: Congestive heart failure COMPARISON: 08/13/2017 FINDINGS: TUBES and LINES: AICD is intact. LUNGS: Lungs are well inflated. There are bibasilar atelectasis. There is interval worsening in perihilar interstitial opacities, consistent with interstitial edema. PLEURA: No pleural effusion or pneumothorax. HEART AND MEDIASTINUM: Cardiac size is moderately enlarged. There are atherosclerotic calcifications within the aorta. BONES AND SOFT TISSUES: No acute osseous lesion. Soft tissues are unremarkable. UPPER ABDOMEN: No free air under the diaphragm. IMPRESSION: Interval worsening in cardiogenic pulmonary edema Signed by: Dr. Jose Jaime M.D. on 08/17/2017 6:57 AM
[2017-08-17] MEDS: INSULIN REGULAR, HUMAN 100 UNIT/1 ML 3ML VIAL SQ SCH ×4 (07:30→21:00)
[2017-08-17] MEDS: SALMETEROL/FLUTICASONE 250/50 INH SCH ×2 (07:37→20:35)
[2017-08-17 08:00] VITALS: BP_SYST 122; BP_SYST 127; BP_DIAS 78
[2017-08-17] MEDS: HYDRALAZINE PO SCH ×3 (09:00→20:22)
[2017-08-17] MEDS: HEPARIN SOD (PORCINE) 5,000 UNIT/ML VIAL SC SCH ×2 (09:00→20:58)
[2017-08-17] MEDS: ISOSORBIDE DINITRATE PO SCH ×3 (09:00→20:22)
[2017-08-17] MEDS: AMLODIPINE BESYLATE 10 MG TAB PO SCH (09:00)
[2017-08-17] MEDS: PANTOPRAZOLE SOD 40 MG TABEC PO SCH (09:00)
[2017-08-17] MEDS: INSULIN LISPRO 100 UNIT/1 ML 3ML VIAL SQ SCH ×3 (09:00→17:00)
[2017-08-17] MEDS: CEFTRIAXONE SOD 1 GM VIAL IV SCH (09:30)
[2017-08-17] MEDS: FUROSEMIDE INJ 10 MG/ML 4 ML VIAL IV SCH ×2 (09:30→17:00)
[2017-08-17] MEDS: CLOPIDOGREL BISULFATE 75 MG TAB PO SCH (09:30)
[2017-08-17] MEDS: ALLOPURINOL 100 MG TAB PO SCH ×2 (09:30→17:00)
[2017-08-17] MEDS: SERTRALINE HCL 50 MG TAB PO SCH (09:30)
[2017-08-17] MEDS: SODIUM BICARBONATE 650 MG TAB PO SCH ×3 (09:30→20:22)
[2017-08-17] MEDS: ASPIRIN 81 MG CHEW TAB PO SCH (09:30)
[2017-08-17] MEDS: CARVEDILOL 12.5 MG TAB PO SCH ×2 (09:30→17:00)
[2017-08-17] MEDS: GLIMEPIRIDE 2 MG TAB PO SCH (09:30)
[2017-08-17] MEDS: METOLAZONE 5 MG TAB PO SCH (09:30)
[2017-08-17] MEDS: LORATADINE 10 MG TAB PO SCH (09:30)
[2017-08-17] MEDS: DOXYCYCLINE HYCLATE TABLET 100 MG TAB PO SCH ×2 (09:30→20:22)
[2017-08-17] MEDS: INSULIN DETEMIR 100 UNIT/ML PEN SQ SCH ×2 (10:00→21:00)
[2017-08-17] MEDS ORDERED: LACTULOSE SYRUP 20 GM/30 ML UDC PO PRN (10:45)
[2017-08-17 12:00] VITALS: BP 127/74
--- NOTE | 2017-08-17 15:47 | Progress Note ---
DATE: August 17, 2017 REASON FOR CONSULTATION: Chronic kidney disease stage 4. SUBJECTIVE: The patient feels dyspnea is improving considerably. He still feels that he has a lot of phlegm that he is unable to get out. OBJECTIVE GENERAL: Sitting comfortably in chair on 3 liters nasal cannula. VITAL SIGNS: Temperature 98, heart rate 80, respiratory rate 19, blood pressure is 127/74, O2 sat 98% on 3 liters nasal cannula. HEENT: NC/AT, EOMI. LUNGS: Crackles at the bases bilaterally. HEART: Regular rate and rhythm. ABDOMEN: Soft, somewhat distended, positive bowel sounds. EXTREMITIES: Slight pitting edema in the lower extremities bilaterally. Labs were reviewed per electronic medical records and significant for a hemoglobin of 11.8, BUN 113 with a creatinine of 2.9. Imaging: Chest x-ray performed today with slight worsening of pulmonary edema. ASSESSMENT AND PLAN 1. A 62-year-old man with chronic kidney disease stage 4, who presented in acute respiratory failure in the setting of pneumonia and qyqpi-lm-aeikaky systolic heart failure. 2. Acute respiratory insufficiency. His BUN is rising and has been a tough balance even as an outpatient. To keep him euvolemic without worsening his renal function. Continue Lasix 80 IV b.i.d. for now. 3. Hypertension, controlled on amlodipine and Carvedilol. 4. Metabolic acidosis. Continue sodium bicarbonate. Bicarb level is currently ___. 5. Hyperphosphatemia. Phosphate level is now normal. Will hold off on phosphate binders. Job#: [id number]
[2017-08-17 16:00] VITALS: BP 131/76
[2017-08-17] MEDS: ATORVASTATIN 40 MG TAB PO SCH (20:22)
[2017-08-18] MEDS: ALBUTEROL/IPRATROPIUM 3 ML NEB NEB SCH ×6 (00:15→19:15)
[2017-08-18] MEDS: GUAIFENESIN 600MG/DEXTROMETHORPHAN 30MG TABSR PO SCH ×5 (01:04→23:02)
[2017-08-18] MEDS: IPRATROPIUM/ALBUTEROL SULFATE 4 GM INH INH SCH ×4 (07:06→19:00)
[2017-08-18] MEDS: SALMETEROL/FLUTICASONE 250/50 INH SCH ×2 (07:17→19:15)
[2017-08-18 08:09] VITALS: BP 138/76
[2017-08-18] MEDS: ASPIRIN 81 MG CHEW TAB PO SCH (08:30)
[2017-08-18] MEDS: ALLOPURINOL 100 MG TAB PO SCH ×2 (08:30→17:35)
[2017-08-18] MEDS: CARVEDILOL 12.5 MG TAB PO SCH ×2 (08:30→17:35)
[2017-08-18] MEDS: LORATADINE 10 MG TAB PO SCH (08:30)
[2017-08-18] MEDS: CLOPIDOGREL BISULFATE 75 MG TAB PO SCH (08:30)
[2017-08-18] MEDS: DOXYCYCLINE HYCLATE TABLET 100 MG TAB PO SCH ×2 (08:30→21:03)
[2017-08-18] MEDS: SERTRALINE HCL 50 MG TAB PO SCH (08:30)
[2017-08-18] MEDS: SODIUM BICARBONATE 650 MG TAB PO SCH ×3 (08:30→21:03)
[2017-08-18] MEDS: METOLAZONE 5 MG TAB PO SCH (08:30)
[2017-08-18] MEDS: ISOSORBIDE DINITRATE PO SCH ×3 (08:30→21:03)
[2017-08-18] MEDS: CEFTRIAXONE SOD 1 GM VIAL IV SCH (08:30)
[2017-08-18] MEDS: HYDRALAZINE PO SCH ×3 (08:30→21:03)
[2017-08-18] MEDS: PANTOPRAZOLE SOD 40 MG TABEC PO SCH (08:30)
[2017-08-18] MEDS: AMLODIPINE BESYLATE 10 MG TAB PO SCH (08:30)
[2017-08-18] MEDS: GLIMEPIRIDE 2 MG TAB PO SCH (08:30)
[2017-08-18] MEDS: INSULIN DETEMIR 100 UNIT/ML PEN SQ SCH ×2 (09:00→22:10)
[2017-08-18] MEDS: HEPARIN SOD (PORCINE) 5,000 UNIT/ML VIAL SC SCH ×2 (09:00→22:09)
--- NOTE | 2017-08-18 12:08 | Progress Note ---
DATE: August 18, 2017 REASON FOR CONSULTATION: CKD, stage 4. SUBJECTIVE: The patient is now off oxygen. Feels well and is eager to go home. OBJECTIVE GENERAL: Sitting comfortably in chair in no distress. VITAL SIGNS: Heart rate 82, respiratory rate 18, blood pressure 131/76, temperature 98.3. The O2 sat is 96%. HEENT: NC, AT, EOMI. LUNGS: Clear to auscultation bilaterally. No wheezing or rales. HEART: Regular rate and rhythm. EXTREMITIES: No edema. Labs were reviewed on the electronic medical record. BNP is pending for today. ASSESSMENT AND PLAN 1. A 62-year-old man with acute respiratory failure in the setting of volume overload and ndzsf-hv-dxprcym heart failure. Will switch Lasix to p.o. 80 mg p.o. b.i.d. and continue p.o. metolazone. 2. Azotemia. BUN is elevated. No signs of uremia. This has been explained to the patient prior to this admission and on this admission as well that he is headed towards dialysis. Will start working towards discussing options. No overt indication to start dialysis yet. 3. Metabolic acidosis. Continue sodium bicarbonate. Job#: [id number]
[2017-08-18 12:11] LABS: ANION GAP 18.7 mmol/L (8-16); CALCIUM 10.4 mg/dL (8.4-10.2); CREATININE, SERUM 3.02 mg/dL (0.72-1.25); POTASSIUM 3.7 mmol/L (3.5-5.1)
[2017-08-18] MEDS: INSULIN LISPRO 100 UNIT/1 ML 3ML VIAL SQ SCH ×3 (12:15→17:34)
[2017-08-18] MEDS: INSULIN REGULAR, HUMAN 100 UNIT/1 ML 3ML VIAL SQ SCH ×4 (12:15→21:00)
[2017-08-18 12:20] VITALS: BP 141/80
[2017-08-18] MEDS: FUROSEMIDE 40 MG TAB PO SCH (17:35)
[2017-08-18 19:46] VITALS: BP 127/72
[2017-08-18] MEDS: ATORVASTATIN 40 MG TAB PO SCH (21:03)
[2017-08-19] MEDS: ALBUTEROL/IPRATROPIUM 3 ML NEB NEB SCH ×3 (00:15→06:48)
[2017-08-19 00:20] VITALS: BP 129/80
[2017-08-19] MEDS: GUAIFENESIN 600MG/DEXTROMETHORPHAN 30MG TABSR PO SCH (05:00)
[2017-08-19] MEDS: FUROSEMIDE 40 MG TAB PO SCH (05:00)
[2017-08-19 05:37] VITALS: BP 146/71
[2017-08-19 06:37] LABS: ANION GAP 18.1 mmol/L (8-16); CALCIUM 9.9 mg/dL (8.4-10.2); CREATININE, SERUM 3.11 mg/dL (0.72-1.25); PHOSPHORUS 4.3 MG/DL (2.3-4.7); POTASSIUM 4.1 mmol/L (3.5-5.1)
[2017-08-19 07:50] VITALS: BP 130/83
[2017-08-19] MEDS: PANTOPRAZOLE SOD 40 MG TABEC PO SCH (08:11)
[2017-08-19] MEDS: INSULIN REGULAR, HUMAN 100 UNIT/1 ML 3ML VIAL SQ SCH (08:13)
[2017-08-19] MEDS: INSULIN LISPRO 100 UNIT/1 ML 3ML VIAL SQ SCH (08:13)
[2017-08-19] MEDS: GLIMEPIRIDE 2 MG TAB PO SCH (08:16)
[2017-08-19 09:05] VITALS: BP 130/83
[2017-08-19] MEDS: CLOPIDOGREL BISULFATE 75 MG TAB PO SCH (09:11)
[2017-08-19] MEDS: CEFTRIAXONE SOD 1 GM VIAL IV SCH (09:11)
[2017-08-19] MEDS: SODIUM BICARBONATE 650 MG TAB PO SCH (09:11)
[2017-08-19] MEDS: ASPIRIN 81 MG CHEW TAB PO SCH (09:12)
[2017-08-19] MEDS: DOXYCYCLINE HYCLATE TABLET 100 MG TAB PO SCH (09:12)
[2017-08-19] MEDS: LORATADINE 10 MG TAB PO SCH (09:13)
[2017-08-19] MEDS: AMLODIPINE BESYLATE 10 MG TAB PO SCH (09:15)
[2017-08-19] MEDS: METOLAZONE 5 MG TAB PO SCH (09:17)
[2017-08-19] MEDS: ALLOPURINOL 100 MG TAB PO SCH (09:17)
[2017-08-19] MEDS: CARVEDILOL 12.5 MG TAB PO SCH (09:18)
[2017-08-19] MEDS: SERTRALINE HCL 50 MG TAB PO SCH (09:18)
[2017-08-19] MEDS: HEPARIN SOD (PORCINE) 5,000 UNIT/ML VIAL SC SCH (09:19)
[2017-08-19] MEDS: INSULIN DETEMIR 100 UNIT/ML PEN SQ SCH (09:35)
[2017-08-19] MEDS: ISOSORBIDE DINITRATE PO SCH (10:13)
[2017-08-19] MEDS: HYDRALAZINE PO SCH (10:13)
[2017-08-19 11:36] VITALS: BP 120/75
--- NOTE | 2017-08-19 12:51 | Discharge Summary ---
He is a 62-year-old male patient with severe comorbidities and chronic conditions. Patient has multiple organ problems. The patient had presented to the emergency room with respiratory distress. ADMITTING IMPRESSION AND DIAGNOSES 1. Acute respiratory failure. 2. Decompensated congestive heart failure. 3. Pulmonary edema. 4. Pneumonia. 5. Chronic obstructive pulmonary disease exacerbation. 6. Dzfxo-pk-hffeqqj renal failure. 7. Worsening renal failure. 8. Diabetes mellitus with renal failure. 9. Chronic kidney disease. 10. Hypertensive heart disease. 11. Hyperlipidemia. HOSPITAL COURSE SUMMARY: The patient was admitted with the above diagnoses. The patient was treated with IV Rocephin, Zithromax and steroids. The patient was requiring BiPAP mask ventilation. The patient had severe respiratory distress, mostly impending to be needed to be intubated. The patient was able to be managed on BiPAP mask ventilation. The patient's diuretics were adjusted, and he is going home on Lasix and diuretics. The patient had cardiology, pulmonary and renal consultations done. The patient was given antibiotics, Rocephin and Zithromax, and doxycycline was added. The patient's diuretics were adjusted. The patient had persistent CHF symptoms, so the diuretics were adjusted with IV Lasix. Physical therapy and occupational therapy were given. Now, upon stabilization, the patient will be discharged home and will be followed up as an outpatient. JORDEN CARLSON MD Job#: [id number]
--- NOTE | 2017-08-19 14:34 | Progress Note ---
DATE: August 19, 2017 REASON FOR CONSULTATION: CKD, stage 4. SUBJECTIVE: The patient feels well, eager to go home today. No acute events overnight. On room air now. OBJECTIVE GENERAL: Standing comfortably in room, in no acute distress. VITAL SIGNS: Temperature 97.8, heart rate 81, respiratory rate 20, blood pressure 130/83. The O2 sat is 99%. LUNGS: Clear to auscultation bilaterally. No wheezing or rales. HEART: Regular rate and rhythm. EXTREMITIES: Minimal pitting edema. Labs were reviewed on the electronic medical record. BUN 116, creatinine 3.1, calcium 9.9, phosphorus 4.3. Imaging was reviewed on the electronic medical record. ASSESSMENT AND PLAN: A 62-year-old man with chronic kidney disease, stage 4, presents with acute respiratory insufficiency in the setting of icxbu-jd-ltktybo systolic heart failure and volume overload. 1. Chronic kidney disease, stage 4. Kidney function at baseline. BUN is elevated. No signs or symptoms of uremia. Switched Lasix from IV to p.o. yesterday. Continue on Lasix p.o. at discharge. 2. Acute respiratory insufficiency. Continue Lasix and metolazone as an outpatient. 3. Accelerated hypertension. Continue Coreg, Lasix and metolazone. Job#: [id number]
== END 2017-08-19 11:37 | disposition home or self-care (01) | DRG 291 ==
LOC: ER 11:55 → ERHOLD 16:44 → IMCU 08-13 12:36
PROVIDERS: ADMIT Internal Medicine; ATTEND Internal Medicine
DX: I13.0 Hypertensive heart and chronic kidney disease with heart failure and stage 1 through stage 4 chronic kidney disease, or unspecified chronic kidney disease (principal); I50.43 Acute on chronic combined systolic (congestive) and diastolic (congestive) heart failure; J96.00 Acute respiratory failure, unspecified whether with hypoxia or hypercapnia; N17.0 Acute kidney failure with tubular necrosis; E87.2 Acidosis; J18.9 Pneumonia, unspecified organism; N18.4 Chronic kidney disease, stage 4 (severe); Q60.0 Renal agenesis, unilateral; J81.0 Acute pulmonary edema; N17.9 Acute kidney failure, unspecified; E87.1 Hypo-osmolality and hyponatremia; E11.22 Type 2 diabetes mellitus with diabetic chronic kidney disease; J44.9 Chronic obstructive pulmonary disease, unspecified; Z95.810 Presence of automatic (implantable) cardiac defibrillator; E78.5 Hyperlipidemia, unspecified; Z79.4 Long term (current) use of insulin; I25.10 Atherosclerotic heart disease of native coronary artery without angina pectoris; Z95.5 Presence of coronary angioplasty implant and graft; Z87.891 Personal history of nicotine dependence; E83.39 Other disorders of phosphorus metabolism
CPT/HCPCS: 36415; 36600; 71010; 80048; 80053; 80061; 81001; 82550; 82553; 82948; 83605; 83735; 83880; 84100; 84484; 85025; 85610; 85730; 87040; 87070; 87086; 87205; 87400; 93005; 93306; 93970; 94640; 94660; 96372; 96376; 99285; J0456; J0696; J1644; J1940; J2920; J7799

== ENCOUNTER 2017-09-18 15:56 | Observation (INO) | payer MEDICARE ==
[~2017-09-18] VITALS: Ht 177.8 cm; Wt 104.1 kg
--- OUTSIDE RECORDS SUMMARY | 2017-09-18 16:28 | XMS REPORT ---
Author Author [facility] Address Unknown Phone Unavailable Care Team Providers Care Assisted Living Home Director Name Role Phone JORDEN CARLSON Unavailable Unavailable CANDICE INIGUEZ Unavailable Unavailable Problems This patient has no known problems. Allergies, Adverse Reactions, Alerts This patient has no known allergies or adverse reactions. Medications This patient has no known medications. Results Test Description Test Time Test Comments Text Results Atomic Results Result Comments CHEST SINGLE (PORTABLE) [place] [address] Patient Name: BRITTANY MARS MR #: [id number] : 1955 Age/Sex: 62/M Req #: [id number] Adm Physician: JORDEN CARLSON MD Ordered by : EDWIN BRADSHAW MD Report #: [id number] Location: [facility] Room/Bed: [place] [address] Procedure: [id number] DX/CHEST SINGLE (PORTABLE) Exam Date: 08/17/17 Exam Time: 0550 REPORT STATUS: Signed EXAMINATION: CHEST SINGLE (PORTABLE) INDICATION: Congestive heart failure COMPARISON: 08/13/2017 FINDINGS : TUBES and LINES: AICD is intact. LUNGS: Lungs are well inflated. There are bibasilar atelectasis. There is interval worsening in perihilar interstitial opacities, consistent with interstitial edema. PLEURA: No pleural effusion or pneumothorax. HEART AND MEDIASTINUM: Cardiac size is moderately enlarged. There are atherosclerotic calcifications within the aorta. BONES AND SOFT TISSUES: No acute osseous lesion. Soft tissues are unremarkable. UPPER ABDOMEN: No free air under the diaphragm. IMPRESSION: Interval worsening in cardiogenic pulmonary edema Signed by : Dr. Jose Jaime M.D. on 08/17/2017 6:57 AM Dictated By: JOSE YANG MD 6 Transcribed By: REECE on 08/17/17656 COPY TO: EDWIN BRADSHAW MD CHEST SINGLE (PORTABLE) [place] [address] Patient Name: BRITTANY MARS MR #: [id number] : 1955 Age/Sex: 62/M Req #: [id number] Adm Physician: JORDEN CARLSON MD Ordered by : KAJAL GARCIA COMPUTER ARTIST Report #: [id number] Location: [facility] Room/Bed: [place] [address] Procedure: [id number] DX/CHEST SINGLE (PORTABLE) Exam Date: 08/13/17 Exam Time: 0535 REPORT STATUS: Signed EXAMINATION: CHEST SINGLE (PORTABLE) INDICATION: Pneumonia. COMPARISON: 08/12/2017 and 05/18/2017 FINDINGS: TUBES and LINES: AICD is intact. LUNGS: Lungs are not well inflated. There are bibasilar atelectasis. There is interval improvement in perihilar interstitial opacities, consistent with interstitial edema. PLEURA: No pleural effusion or pneumothorax. HEART AND MEDIASTINUM: Cardiac size is moderately enlarged. There are atherosclerotic calcifications within the aorta. BONES AND SOFT TISSUES: No acute osseous lesion. Soft tissues are unremarkable. UPPER ABDOMEN: No free air under the diaphragm. IMPRESSION: Interval improvement in cardiogenic pulmonary edema Signed by: Dr. Jose Jaime M.D. on 08/13/2017 6:28 AM Dictated By: JOSE SANFORD MD 7 Transcribed By: REECE on 08/13/17627 COPY TO: KAJAL GARCIA COMPUTER ARTIST CHEST SINGLE (PORTABLE) [place] [address] Patient Name: BRITTANY MARS MR #: [id number] : 1955 Age/Sex: 62/M Req #: [id number] Adm Physician: Ordered by: KAJAL GARCIA COMPUTER ARTIST Report #: [id number] Location: ER Room/Bed: ___ Procedure: [id number] DX/CHEST SINGLE (PORTABLE) Exam Date: 08/12/17 Exam Time: 1240 REPORT STATUS: Signed EXAMINATION: CHEST SINGLE (PORTABLE) INDICATION: COMPARISON: Chest radiograph 02/04/2017 FINDINGS: AP view TUBES and LINES: AICD is again noted. Previously leads overlying the right atrium and coronary sinus are currently difficult to visualize, likely secondary to film underpenetration and portable technique. LUNGS: Lungs are well inflated. Increased hilar fullness and interstitial opacities. PLEURA: No pleural effusion or pneumothorax. HEART AND MEDIASTINUM: Stable enlargement of the cardiac silhouette. BONES AND SOFT TISSUES: No acute findings. UPPER ABDOMEN: No free air under the diaphragm. IMPRESSION: Interstitial edema with stable cardiomegaly. Signed by : DR. Sandro Henson MD on 08/12/2017 1:26 PM Dictated By: SANDRO HENSON MD 1326 Transcribed By : REECE on 08/12/17 1326 COPY TO: KAJAL GARCIA NP US RENAL RETROPERITONEAL COMP [facility] [address] [place] [address] Patient Name: BRITTANY MARS MR #: [id number] : 1955 Age/Sex: 62/M Req #: [id number] [facility] Physician: CANDICE INIGUEZ MD Ordered by : PRESLEY SCHUMACHER COMPUTER ARTIST Report #: [id number] Location: MED/SURG2 Room/Bed: [facility] Procedure: [id number] US/US RENAL RETROPERITONEAL COMP Exam Date: Exam Time: REPORT STATUS: Signed PROCEDURE: US RETROPERITONEAL ( KIDNEY ). COMPARISON: None. INDICATIONS: Worsening Renal Function TECHNIQUE: Jorge-scale and color sonographic images of the bilateral kidneys and bladder where obtained in transverse and longitudinal planes. FINDINGS: RIGHT KIDNEY: Not visualized. LEFT KIDNEY: 13.4 cm, cortex 2.1 cm Cysts: None. Solid masses: None. Stones: None. Hydronephrosis: None. Echogenicity: Normal. Bladder: Normal contour. CONCLUSION: No acute sonographic abnormality. Normal left kidney. Right renal agenesis, correlates with history as per patient. Dictated by: Dre Aguirre M.D. on 2016 at 12:31 Electronically approved by: Dre Aguirre M.D. on 2016 at 12:31 Dictated By: DRE AGUIRRE MD 1231 Transcribed By: PUSHPA on 05/18/17 1231 COPY TO: PRESLEY SCHUMACHER COMPUTER ARTIST CHEST 2 VIEWS [place] [address] [place] [address] Patient Name: BRITTANY MARS MR #: [id number] : 1955 Age/Sex: 62/M Req #: [id number] Adm Physician: CANDICE INIGUEZ MD Ordered by: PRESLEY SCHUMACHER COMPUTER ARTIST Report #: [id number] Location: MED/SURG2 Room/Bed: [facility] Procedure: [id number] DX/CHEST 2 VIEWS Exam Date: 05/18 Exam Time: 0655 REPORT STATUS: Signed PROCEDURE: Frontal and lateral views of the chest. COMPARISON: Portable chest 05/15/2017. INDICATIONS: PNEUMONIA, COUGH, COPD FINDINGS : Lines/tubes: Left chest cardiac device with leads projecting over the expected regions of the right atrium and ventricle. Lungs: Airspace opacity in the left lower lobe. No parenchymal mass. Pleura: There is no pleural effusion or pneumothorax. Heart and mediastinum: The heart and the mediastinum are normal. Atherosclerotic calcifications. Bones: No acute bony abnormality. Degenerative changes of the thoracic spine. IMPRESSION: Airspace opacity in the left lower lobe may represent atelectasis or developing pneumonia. Dictated by: Dre Aguirre M.D. on 05/18/2017 at 7:34 Electronically approved by: Dre Aguirre M.D. on 05/18/2017 at 7:34 Dictated By: DRE AGUIRRE MD 3 Transcribed By: PUSHPA on 05/18/17733 COPY TO: PRESLEY SCHUMACHER COMPUTER ARTIST CHEST SINGLE (PORTABLE) [place] [address] Patient Name: BRITTANY MARS MR #: [id number] : 1955 Age/Sex: 62/M Req #: [id number] [facility] Physician: Ordered by: YOAV BENITEZ MD Report #: [id number] Location: ER Room/Bed: _ Procedure: [id number] DX/CHEST SINGLE (PORTABLE) Exam Date: 05/15/17 Exam Time: 0730 REPORT STATUS: Signed PROCEDURE: A single AP view of the chest. COMPARISON: Portable chest 02/04/2017. INDICATIONS: SHORTNESS OF BREATH/COPD FINDINGS: Lines/tubes: Left chest cardiac device with leads projecting over the expected regions of the right atrium and ventricle. Lungs: Airspace opacity in the right lung base. No parenchymal mass. Pleura: There is no pleural effusion or pneumothorax. Heart and mediastinum: The heart and the mediastinum are unremarkable. Bones: No acute bony abnormality. Degenerative changes of the thoracic spine. IMPRESSION: Airspace opacity in the right lung base may represent atelectasis or developing pneumonia. Dictated by: Dre Aguirre M.D. on 05/15/2017 at 8:01 Electronically approved by: Dre Aguirre M.D. on 05/15/2017 at 8:01 Dictated By: DRE AGUIRRE MD 0 Transcribed By: PUSHPA on 05/15/17800 COPY TO: YOAV BENITEZ MD
[2017-09-18 16:33] VITALS: BP 152/72
[2017-09-18] MEDS ORDERED: DEXTROSE 50% SYRINGE 50 ML IV PRN (17:15)
[2017-09-18] MEDS ORDERED: SPIRONOLACTONE 25 MG TAB PO SCH ×2 (18:00→21:00)
[2017-09-18] MEDS ORDERED: BIDIL TABLET1 EACH PO (18:09)
[2017-09-18] MEDS ORDERED: SPIRONOLACTONE25 MG PO (18:19)
[2017-09-18] MEDS ORDERED: LASIX40 MG PO (18:21)
[2017-09-18] MEDS ORDERED: METOLAZONE5 MG PO (18:23)
[2017-09-18] MEDS ORDERED: CALCITRIOL0.25 MCG PO (18:26)
[2017-09-18] MEDS ORDERED: POLYETHYLENE GLYCOL 3350 17 GM PACK PO PRN (18:45)
[2017-09-18] MEDS ORDERED: ASPIRIN 81 MG CHEW TAB PO ONE (19:00)
[2017-09-18 19:25] VITALS: BP 152/72
[2017-09-18 19:27] LABS: HEMATOCRIT 37.2 % (38.2-49.6); HEMOGLOBIN 12.5 g/dL (14.0-18.0); MEAN CORPUSCULAR HEMOGLOBIN 30.5 pg (28-32); MEAN CORPUSCULAR HGB CONC 33.6 g/dL (31-35); MEAN CORPUSCULAR VOLUME 90.7 fL (81-99); PLATELET COUNT 167 x10e3/uL (140-360); RED CELL DISTRIBUTION WIDTH 14.6 % (11.7-14.4)
[2017-09-18 19:40] LABS: INR 1.05; PROTHROMBIN TIME 12.9 seconds (11.9-14.5)
[2017-09-18 19:41] LABS: PARTIAL THROMBOPLASTIN TIME 34.4 seconds (23.8-35.5)
[2017-09-18 19:50] LABS: ALBUMIN 3.8 g/dL (3.5-5.0); ALBUMIN/GLOBULIN RATIO 1.1 (0.8-2.0); ANION GAP 16.9 mmol/L (8-16); CALCIUM 9.8 mg/dL (8.4-10.2); CREATININE, SERUM 2.75 mg/dL (0.72-1.25); POTASSIUM 3.9 mmol/L (3.5-5.1)
[2017-09-18 20:00] VITALS: BP 131/71
[2017-09-18] MEDS ORDERED: ALBUTEROL0.63 MG/3 INH ×2 (20:04→20:05)
[2017-09-18] MEDS: ENTRESTO 24MG/26MG PO SCH (20:12)
[2017-09-18 20:26] LABS: CREATINE KINASE MB 3.5 ng/mL (0-5.0)
[2017-09-18] MEDS ORDERED: ACETAMINOPHEN 325 MG TAB PO PRN (20:30)
[2017-09-18] MEDS ORDERED: ALBUTEROL SULF 0.083% NEB SOLN 3 ML NEB INH PRN (20:45)
[2017-09-18] MEDS: INSULIN LISPRO 100 UNIT/1 ML 3ML VIAL SQ SCH ×2 (21:00)
[2017-09-18] MEDS: ATORVASTATIN 40 MG TAB PO SCH (22:10)
[2017-09-18] MEDS: FUROSEMIDE INJ 10 MG/ML 4 ML VIAL IV SCH (22:10)
[2017-09-18] MEDS: SODIUM BICARBONATE 650 MG TAB PO SCH (22:30)
[2017-09-18] MEDS: ALBUTEROL SULF 0.083% NEB SOLN 3 ML NEB INH PRN (23:05)
--- NOTE | 2017-09-18 23:33 | Diagnostic Imaging Report ---
EXAMINATION: CHEST 2 VIEWS INDICATION: Fluid overload COMPARISON: 08/17/2017 FINDINGS: TUBES and LINES: AICD is intact. LUNGS: Lungs are not well inflated. There are bibasilar atelectasis. There is mild prominence of the central pulmonary vasculature, consistent with pulmonary venous congestion. Interlobular septal thickening PLEURA: Trace of right pleural effusion. HEART AND MEDIASTINUM: Cardiac size is moderately enlarged. There are atherosclerotic calcifications within the aorta. BONES AND SOFT TISSUES: No acute osseous lesion. Soft tissues are unremarkable. UPPER ABDOMEN: No free air under the diaphragm. IMPRESSION: Recurring cardiogenic pulmonary edema. Signed by: Dr. Jose Jaime M.D. on 09/18/2017 11:02 PM
[2017-09-19] VITALS (7 sets, daily range): BP systolic 123–137; BP diastolic 62–76
[2017-09-19] MEDS: INSULIN DETEMIR 100 UNIT/ML PEN SQ SCH ×3 (00:05→20:50)
[2017-09-19] MEDS: FUROSEMIDE INJ 10 MG/ML 4 ML VIAL IV SCH ×2 (05:45→17:37)
[2017-09-19] MEDS: IPRATROPIUM/ALBUTEROL SULFATE 4 GM INH INH SCH ×4 (08:00→21:06)
[2017-09-19] MEDS: INSULIN LISPRO 100 UNIT/1 ML 3ML VIAL SQ SCH ×7 (08:00→20:49)
[2017-09-19] MEDS: ALBUTEROL SULF 0.083% NEB SOLN 3 ML NEB INH PRN ×4 (08:00→19:55)
[2017-09-19] MEDS: SALMETEROL/FLUTICASONE 250/50 INH SCH ×2 (08:00→19:55)
[2017-09-19] MEDS: ENTRESTO 24MG/26MG PO SCH ×2 (09:00→16:02)
[2017-09-19] MEDS ORDERED: CARVEDILOL 12.5 MG TAB PO SCH (09:00)
[2017-09-19] MEDS ORDERED: FUROSEMIDE 40 MG TAB PO SCH (09:00)
--- NOTE | 2017-09-19 09:58 | Consultation ---
DATE OF CONSULTATION: PULMONARY CONSULTATION REASON FOR CONSULTATION: Shortness of breath. HPI: Mr. Fortune is a 62-year-old male known to me from previous admission. Patient has a history of congestive heart failure and chronic kidney disease. He has BIVI pacemaker and defibrillator placed in 2014, history of coronary artery disease and PCI in 2007. His body habitus is highly suggestive of obstructive sleep apnea. However, patient does not have any CPAP machine and never had a sleep study. He was here in the middle of July with shortness of breath and worsening congestive heart failure. He presented to Dr. Irwin's office this time again with shortness of breath, wheezing and cough. Patient was given diuretics overnight and started feeling better. He denies any chest pain, nausea or vomiting. He said that he felt really better with the CPAP when it was used last night. REVIEW OF SYSTEMS GENERAL: Denies any fever or chills. HEENT: Denies any head trauma or head injury. Denies any earache, nosebleed throat pain. CV: Denies any chest pain. RESPIRATORY: As above. GI: Denies any nausea or vomiting. MUSCULOSKELETAL: Denies any arthralgias or myalgias. NEURO: Denies any focal weakness. The rest of the review systems are negative except as in HPI. PAST MEDICAL HISTORY: Chronic kidney disease, congestive heart failure, high likelihood of obstructive sleep apnea, hypertension, BIVI pacemaker with defibrillator placed in 2014, CKD 4, ex-smoker. SURGICAL HISTORY: Appendectomy, BIVI device and cardiac stents. FAMILY HISTORY/SOCIAL HISTORY: He is . He has 4 children. He quit smoking in 2009. He smoked around 2-3 packs for 40 years and drinks as well. PHYSICAL EXAMINATION VITALS: Temperature 96.6, pulse of 84, blood pressure 130/76, respiratory rate of 18, O2 sat 96% on 2 L. SKIN: Warm and dry. GENERAL: He is a middle-aged male not in any obvious distress. He is awake, alert and following commands. Responds to questions appropriately. HEENT: Head is atraumatic and normocephalic. Pupils are reactive. NECK: Supple. CHEST: Reduced air entry bilaterally. HEART: S1 and S2 audible. ABDOMEN: Soft, nontender and nondistended. EXTREMITIES: Bilateral pedal edema, right more than the left, but that has been going on for quite some time. NEUROLOGICAL: Awake and alert. Following commands. No focal neurological deficit. LABS: Sodium 140, potassium 3.9, chloride 104, BUN 65, creatinine 2.75. When he was discharged on August 19, 2017, his creatinine was 3.11. INR is 1.05, white count of 13,000, hemoglobin 12.5 and platelets 167,000. Chest x-ray showed bilateral alveolar congestion. His last echo showed dilated LV with EF of 20% to 25% with severe global hypokinesis. This was done on August 13, 2017. LA was dilated and RVSP was 47.91. ASSESSMENT AND PLAN: Mr. Fortune is a 62-year-old male who presented with worsening fluid overload and was admitted with respiratory failure. He improved with intravenous diuresis. Patient has chronic kidney disease, biventricular failure, and high likelihood of chronic obstructive pulmonary disease as the patient has almost an 80-90 pack year smoking history. His body habitus is highly suggestive of obstructive sleep apnea as well. Patient does not have CPAP machine as he never had a sleep study done. CURRENT PROBLEMS 1. Gwdnl-vx-ubytdtm systolic heart failure. 2. Fluid overload due to chronic kidney disease. 3. Chronic kidney disease. 4. Hypertension. 5. Obesity. 6. Coronary artery disease. 7. Diabetes. 8. High likelihood of obstructive sleep apnea and chronic obstructive pulmonary disease because extensive history of smoking. PLAN 1. Continue the patient on diuretics as ordered. 2. Will continue the patient on Advair. 3. Nebulizer treatment as ordered. I have advised the patient that he should get an outpatient sleep study, and he will be following up with me for that. Continue the patient on CPAP as needed and hours of sleep. CPAP has been ordered. Nephrology consultation has been called for chronic kidney disease. Job#: [id number] [facility]
[2017-09-19] MEDS: PANTOPRAZOLE SOD 40 MG TABEC PO SCH (10:11)
[2017-09-19] MEDS: GLIMEPIRIDE 2 MG TAB PO SCH (10:12)
[2017-09-19] MEDS: CLOPIDOGREL BISULFATE 75 MG TAB PO SCH (10:12)
[2017-09-19] MEDS: LORATADINE 10 MG TAB PO SCH (10:12)
[2017-09-19] MEDS: AMLODIPINE BESYLATE 10 MG TAB PO SCH (10:12)
[2017-09-19] MEDS: ASPIRIN 81 MG CHEW TAB PO SCH (10:12)
[2017-09-19] MEDS: SERTRALINE HCL 50 MG TAB PO SCH (10:13)
[2017-09-19] MEDS: ALLOPURINOL 100 MG TAB PO SCH ×2 (10:13→17:37)
[2017-09-19] MEDS: SODIUM BICARBONATE 650 MG TAB PO SCH ×3 (10:13→20:31)
[2017-09-19 11:04] LABS: CHOL/HDL RATIO 3.2 (3.9-4.7)
[2017-09-19 11:24] LABS: THYROID STIMULATING HORMONE 1.617 uIU/mL (0.350-4.940)
[2017-09-19] MEDS: CALCITRIOL 0.25 MCG CAP PO SCH (12:21)
--- NOTE | 2017-09-19 13:32 | Consultation ---
DATE OF CONSULTATION: REASON FOR CONSULTATION: CHF. HISTORY OF PRESENT ILLNESS: Mr. Fortune is a 62-year-old gentleman with a past medical history as listed below presented with complaints of shortness of breath. Patient states he has been short of breath and has been experiencing leg swelling for the last couple of weeks, which has been getting progressively was worse. Was not able to lay flat. He was noted be in CHF and was admitted. He was given Lasix. He states after the Lasix he felt like a baby and slept well. Denies any abdominal pain, vomiting or diarrhea. No chest pain. REVIEW OF SYSTEMS CONSTITUTIONAL: Has fatigue and weakness. HEENT: No headache, blurry vision, seizures, or syncope. CARDIOVASCULAR: No chest pain. Has dyspnea. Has orthopnea. Has leg edema and PND. RESPIRATORY: No cough, fever or expectoration. GI: No abdominal pain, vomiting or diarrhea. : No dysuria, frequency or incontinence. ALLERGIES: NO KNOWN DRUG ALLERGIES. MEDICATIONS: See list. PAST MEDICAL HISTORY: History of CAD and stent placement about 7 years back at [place], history of CHF, history of hypertension, history of diabetes mellitus, history of ICD placement about 3 years back, history of renal failure, history of COPD. SOCIAL HISTORY: Quit smoking in 2009. States he drinks a beer a day. Has been drinking for more than 40 years. FAMILY HISTORY: History of diabetes and sleep apnea. PHYSICAL EXAMINATION GENERAL: Obese gentleman alert and oriented, and not in any obvious distress. VITALS: Heart rate is 84, blood pressure 131/76, respiratory rate 20, temperature 96.6. HEENT: Atraumatic. NECK: No JVD, bruit, thyromegaly, or lymphadenopathy. CARDIOVASCULAR: First and 2nd heart sounds heard. No murmurs, rubs or gallops appreciated. CHEST: Decreased air entry at the bases. No adventitious sounds appreciated. ABDOMEN: Soft and nontender. EXTREMITIES: One to 2+ edema. LABS: Sodium is 140, potassium is 3.9, chloride 104, bicarb is 23, BUN is 65, creatinine 2.7, glucose 264. Hemoglobin is 12.5, hematocrit 37.2 and platelets 167,000. White count is 13.6. Chest x-ray shows some cardiogenic pulmonary edema. EKG shows paced rhythm at [address]-T changes. IMPRESSION 1. Exacerbation of congestive heart failure, [id number]-[id number]. 2. Coronary artery disease with history of stent placement. 3. Renal failure. 4. Hypertension. 5. Diabetes mellitus. 6. History of implantable cardioverter defibrillator. PLAN 1. IV diuresis. 2. Get echocardiogram to assess LV function and valvular function. 3. I's and O's, daily weights, fluid restriction, and start low-dose beta blockers. 4. Will hold off on NATALY inhibitors due to renal failure. 5. Patient is currently on spironolactone. Can continue the same. However, monitor his renal function and potassium. 6. Further cardiac workup depending on clinical course. I discussed my impression and plan of management with the patient. He understands. As always, I appreciate and thank you very much for the referral. Job#: [id number] [facility]
--- NOTE | 2017-09-19 16:11 | Consultation ---
DATE OF CONSULTATION: September 19, 2017 REASON FOR CONSULTATION: Chronic kidney disease stage 4. HPI: Mr. Fortune is a 62-year-old man, well known to us as he follows with us in our clinic in [place]. He has a history of congestive heart failure and diabetes and chronic kidney disease stage 4. He has had multiple admissions over the past few months secondary to hwkss-mh-avczbgr systolic heart failure resulting in respiratory insufficiency. He presented to Dr. Irwin's office earlier yesterday with shortness of breath, wheezing, and non-productive cough. He was admitted for further treatment. Overnight, he was started on Lasix 80 mg IV q.12, and this morning upon my exam, he states his breathing has improved significantly. He denies fevers, chills, nausea, or productive sputum. He denies sick contacts or recent travel. REVIEW OF SYSTEMS: Negative for fevers, chills, nausea, vomiting, diarrhea, chest pain, palpitations, abdominal pain, changes in mood, changes in appetite, or changes in thirst. PAST MEDICAL HISTORY 1. Diabetes. 2. Hypertension. 3. Chronic kidney disease stage 4. 4. Congestive heart failure. PAST SURGICAL HISTORY 1. Appendectomy. 2. Pacemaker placement. 3. Cardiac stent placement. FAMILY HISTORY: Negative for renal disease. SOCIAL HISTORY: No alcohol or illicit drug use. He stopped smoking 8 years ago. PHYSICAL EXAMINATION GENERAL: He is lying comfortably in bed, no acute distress. VITAL SIGNS: Temperature 96.6, heart rate 84, respiratory rate 20, blood pressure 131/76, and O2 sat is 96% on 2 liters nasal cannula. HEENT: NC, AT, EOMI. NECK: Supple. JVD not appreciated. LUNGS: Crackles at the bases bilaterally, no wheezing. HEART: Regular rate and rhythm. S1 and S2. No murmurs. ABDOMEN: Soft, nontender, and distended. Positive bowel sounds. EXTREMITIES: Positive for 1+ pitting edema in the lower extremities bilaterally up to the knees. NEURO: Cranial nerves II through XII are grossly intact. No focal deficits. SKIN: No rashes or lesions. MUSCULOSKELETAL: Normal to inspection. LABS: Reviewed on electronic medical record. Significant for a hemoglobin of 12.5, BUN of 65, and creatinine of 2.7. Baseline creatinine ranges in the 3 to 3.5 mg/dL range. IMAGING: Reviewed on electronic medical record. Chest x-ray performed yesterday showed recurrent cardiogenic pulmonary edema. MEDICATIONS: Reviewed on electronic medical record. ASSESSMENT AND PLAN: A 62-year-old man with CKD stage 4 who presents with juzlr-tp-bypbrwl systolic heart failure resulting in acute respiratory insufficiency. 1. Acute respiratory insufficiency: We will continue Lasix 80 mg q.12 along with Aldactone and metolazone. 2. Secondary hyperparathyroidism: We will continue calcitriol. 3. Accelerated hypertension: We will continue Coreg and diuretics as above. 4. Metabolic acidosis: We will continue 1950 mg of bicarbonate. This morning bicarb level was 23. With diuresis, his BUN and creatinine have trended to rise before, and each time as he becomes more volume overloaded, his renal function improves; however, his respiratory status declines. This was discussed in length with him that it is a tough and tenuous balance between maintaining his respiratory status and his kidney function. He is agreeable to dialysis if it comes to the point that for us to be able to keep him euvolemic, kidneys will have to take a hit. For now, kidney function is stable. We will monitor on diuretics. Upon discharge, we will increase his spironolactone and metolazone to daily as well. We will increase the dose here as well. Thank you Dr. Irwin for allowing me to participate in the care of Mr. Fortune. I will continue to follow closely. Job#: [id number] [facility]
[2017-09-19] MEDS ORDERED: CARVEDILOL 3.125 MG TAB PO SCH (17:00)
[2017-09-19] MEDS: CARVEDILOL 12.5 MG TAB PO SCH (17:37)
--- NOTE | 2017-09-19 18:16 | History and Physical ---
CHIEF COMPLAINT: This is a 62-year-old male patient of mine, presented with a complaint of severe shortness of breath. HISTORY OF PRESENT ILLNESS: Mr. Alec Fortune is a 62-year-old male patient who has a severe CHF, who was recently admitted in the hospital and had presented again with a complaint of severe shortness of breath and he has almost shortness of breath on doing minimal activity. Patient is stating he is compliant with the medication, but he does not comply with and he keep on drinking too much fluid. He had recurrent hospitalizations. MEDICATIONS: See from the list. SOCIAL HISTORY: Denies smoking, denies using alcohol. PAST SURGICAL HISTORY: Tonsillectomy, appendectomy, kidney surgery, pacemaker, and AICD placement. ALLERGIES: NO KNOWN DRUG ALLERGIES. REVIEW OF SYSTEMS: Shortness of breath. PHYSICAL EXAMINATION GENERAL: He is a middle-aged male patient, lying in the bed, not in any acute distress. VITAL SIGNS: Temperature is 99, pulse rate 97, respiration rate 24, blood pressure 103/70. HEENT: Normocephalic. NECK: No JVD present. LUNGS: Diminished basilar air entry. Rales present. HEART: S1, S2 regular, systolic murmur present. ABDOMEN: Soft. Bowel sounds present. NEUROLOGIC: No focal neurological deficit. ADMITTING IMPRESSION AND DIAGNOSES 1. Acutely decompensated congestive heart failure, systolic/diastolic, ejection fraction 20%. 2. Diabetes mellitus with chronic kidney disease stage 5. 3. Hypertensive heart disease. 4. Coronary kidney disease. 5. Depression. 6. Noncompliance. PLAN: The patient will be admitted with above diagnoses. Patient will be given IV diuretic and home O2. A sleep study done will be done and will obtain pulmonary, cardiology, and renal consultation. Patient is admitted under observation and we will monitor the patient. Patient will be taught for the compliance and upon stabilization, patient will be discharged. Job#: [id number] [facility]
[2017-09-19] MEDS: ATORVASTATIN 40 MG TAB PO SCH (20:31)
[2017-09-20 02:00] VITALS: BP 100/64
[2017-09-20 02:33] VITALS: BP 100/64
[2017-09-20] MEDS: FUROSEMIDE INJ 10 MG/ML 4 ML VIAL IV SCH (05:00)
[2017-09-20 06:08] VITALS: BP 114/56
[2017-09-20] MEDS: INSULIN LISPRO 100 UNIT/1 ML 3ML VIAL SQ SCH ×4 (07:30→12:00)
[2017-09-20 08:00] VITALS: BP 135/74
[2017-09-20] MEDS: IPRATROPIUM/ALBUTEROL SULFATE 4 GM INH INH SCH ×3 (08:06→15:00)
[2017-09-20] MEDS: ALBUTEROL SULF 0.083% NEB SOLN 3 ML NEB INH PRN ×2 (08:06→11:18)
[2017-09-20] MEDS: SALMETEROL/FLUTICASONE 250/50 INH SCH (08:06)
[2017-09-20 08:09] LABS: BASOPHILS # (AUTO) 0.1 (0.0-0.1); BASOPHILS % 0.4 % (0.0-1.0); EOSINOPHILS # (AUTO) 0.2 (0.0-0.4); EOSINOPHILS % 1.5 % (0.0-6.0); HEMATOCRIT 39.5 % (38.2-49.6); HEMOGLOBIN 13.4 g/dL (14.0-18.0); LYMPHOCYTES # (AUTO) 1.7 (1.0-3.2); LYMPHOCYTES % 12.8 % (18.0-39.1); MEAN CORPUSCULAR HEMOGLOBIN 30.5 pg (28-32); MEAN CORPUSCULAR HGB CONC 33.9 g/dL (31-35); MEAN CORPUSCULAR VOLUME 89.8 fL (81-99); MONOCYTES # (AUTO) 0.7 (0.2-0.8); MONOCYTES % 5.5 % (4.4-11.3); NEUTROPHILS # (AUTO) 10.2 (2.1-6.9); NEUTROPHILS % 79.4 % (38.7-80.0); PLATELET COUNT 205 x10e3/uL (140-360); RED CELL DISTRIBUTION WIDTH 14.6 % (11.7-14.4)
[2017-09-20 08:37] LABS: ALBUMIN 3.8 g/dL (3.5-5.0); ALBUMIN/GLOBULIN RATIO 1.1 (0.8-2.0); ANION GAP 17.1 mmol/L (8-16); CALCIUM 10.3 mg/dL (8.4-10.2); CREATININE, SERUM 2.55 mg/dL (0.72-1.25); POTASSIUM 4.1 mmol/L (3.5-5.1)
[2017-09-20 08:50] LABS: MAGNESIUM 1.7 MG/DL (1.3-2.1); PHOSPHORUS 3.9 MG/DL (2.3-4.7)
[2017-09-20] MEDS ORDERED: SPIRONOLACTONE 25 MG TAB PO SCH (09:00)
[2017-09-20] MEDS: INSULIN DETEMIR 100 UNIT/ML PEN SQ SCH (09:00)
[2017-09-20] MEDS ORDERED: METOLAZONE 5 MG TAB PO SCH (09:00)
--- NOTE | 2017-09-20 09:17 | Discharge Summary ---
He is a 62-year-old male patient presented with a complaint of shortness of breath. ADMITTING IMPRESSION AND DIAGNOSES: Acute decompensated systolic and diastolic congestive heart failure secondary to noncompliance in a patient who has advanced heart failure with renal failure, diabetes mellitus, hypertension, and hyperlipidemia. HOSPITAL COURSE SUMMARY: Patient was given IV diuretic Lasix, spironolactone, and metolazone, and patient had improved significantly. Patient has pulmonary, renal, and cardiology consultation done. Patient was pressed very hard for the compliance in order to prevent recurrent hospitalization including . So now upon stabilization, patient will be discharged home and patient was advised to have a strict fluid restriction and no salt intake, and advised to continue his medication regularly. Patient was advised to continue take his metolazone and spironolactone daily instead of taking 3 times a week. Patient needs outpatient sleep study. I will see patient in a close outpatient followup to ensure further compliance. Patient needs to follow up as outpatient with cardio and pulmonary as well as the dental hygiene instructor. JORDEN CARLSON MD Job#: [id number]
[2017-09-20] MEDS: CARVEDILOL 12.5 MG TAB PO SCH (09:44)
[2017-09-20] MEDS: GLIMEPIRIDE 2 MG TAB PO SCH (09:44)
[2017-09-20] MEDS: PANTOPRAZOLE SOD 40 MG TABEC PO SCH (09:44)
[2017-09-20] MEDS: LORATADINE 10 MG TAB PO SCH (09:45)
[2017-09-20] MEDS: ASPIRIN 81 MG CHEW TAB PO SCH (09:45)
[2017-09-20] MEDS: ENTRESTO 24MG/26MG PO SCH (09:45)
[2017-09-20] MEDS: CLOPIDOGREL BISULFATE 75 MG TAB PO SCH (09:45)
[2017-09-20] MEDS: ALLOPURINOL 100 MG TAB PO SCH (09:45)
[2017-09-20] MEDS: SERTRALINE HCL 50 MG TAB PO SCH (09:45)
[2017-09-20] MEDS: AMLODIPINE BESYLATE 10 MG TAB PO SCH (09:45)
[2017-09-20] MEDS: CALCITRIOL 0.25 MCG CAP PO SCH (09:45)
[2017-09-20] MEDS: SODIUM BICARBONATE 650 MG TAB PO SCH (09:45)
[2017-09-20 12:00] VITALS: BP 142/70
--- NOTE | 2017-09-20 12:35 | Progress Note ---
DATE: September 20, 2017 REASON FOR CONSULTATION: CKD stage 4. SUBJECTIVE: No acute events overnight. Now on room air, saturating 98%. OBJECTIVE VITAL SIGNS: Heart rate 88, respiratory rate 18, blood pressure 135/74, and O2 sat is 98% on room air. HEENT: NC, AT, EOMI. LUNGS: Decreased breath sounds at the bases, but otherwise clear to auscultation anteriorly. HEART: Regular rate and rhythm. EXTREMITIES: No edema. LABS: Reviewed on electronic medical record. Significant for a hemoglobin of 13.4, WBC count of 12.8 from 13.6 yesterday, BUN of 68, and creatinine of 2.5 from 2.75 yesterday. IMAGING: Reviewed on electronic medical record. Chest x-ray performed on admission showed cardiogenic pulmonary edema. MEDICATIONS: Reviewed on electronic medical record. ASSESSMENT AND PLAN 1. Acute respiratory insufficiency: Continue spironolactone, metolazone, and IV Lasix. We will switch to p.o. Lasix on discharge. Requested he take 80 mg of p.o. Lasix q.12 along with the spironolactone and metolazone daily on discharge. 2. Chronic kidney disease stage 4; kidney function currently at baseline. We will need to start discussing dialysis and transplant options with him. He has recently become more amenable to discussing this. 3. Metabolic acidosis: We will continue sodium bicarbonate t.i.d. 1. Secondary hyperparathyroidism: Continue calcitriol. 2. Accelerated hypertension: Continue diuretics, Coreg, and amlodipine. Job#: [id number] MARCELL
[2017-09-20 16:00] VITALS: BP 122/60
[2017-09-21] MEDS ORDERED: SPIRONOLACTONE 25 MG TAB PO SCH (09:00)
[2017-09-21] MEDS ORDERED: METOLAZONE 5 MG TAB PO SCH (09:00)
== END 2017-09-20 18:55 | disposition home or self-care (01) ==
LOC: IMCU 16:25
PROVIDERS: ADMIT Internal Medicine; ATTEND Internal Medicine
DX: I13.0 Hypertensive heart and chronic kidney disease with heart failure and stage 1 through stage 4 chronic kidney disease, or unspecified chronic kidney disease (principal); I50.43 Acute on chronic combined systolic (congestive) and diastolic (congestive) heart failure; N18.4 Chronic kidney disease, stage 4 (severe); E11.22 Type 2 diabetes mellitus with diabetic chronic kidney disease; F32.9 Major depressive disorder, single episode, unspecified; Z91.19 Patient's noncompliance with other medical treatment and regimen; R06.89 Other abnormalities of breathing; N25.81 Secondary hyperparathyroidism of renal origin; E87.2 Acidosis; I25.10 Atherosclerotic heart disease of native coronary artery without angina pectoris; Z95.5 Presence of coronary angioplasty implant and graft; Z87.891 Personal history of nicotine dependence; F10.10 Alcohol abuse, uncomplicated; Z95.810 Presence of automatic (implantable) cardiac defibrillator; E66.9 Obesity, unspecified; E78.5 Hyperlipidemia, unspecified; Z68.32 Body mass index [BMI] 32.0-32.9, adult; J44.9 Chronic obstructive pulmonary disease, unspecified
CPT/HCPCS: 36415 ×3; 71046; 80053 ×2; 80061; 82550; 82553; 82948 ×3; 83735; 83880; 84100; 84443 ×2; 84484; 85007; 85025; 85027; 85610; 85730; 93306; 94640 ×6; 94660; 97116; 97162; G0378 ×3; G8978; G8979; G8980; J1940 ×3

== ENCOUNTER → 2017-10-07 | Outpatient (CLI) | payer MEDICARE ==
[~2017-10-07] MED LIST changes: +ALBUTEROL0.63 MG/3 INH; +CALCITRIOL0.25 MCG PO
--- NOTE | 2017-10-19 10:49 | Polysomnography ---
DATE OF STUDY: October 07, 2017 POLYSOMNOGRAM REPORT Patient with history of observed sleep apnea. Delta Sleepiness Score of 18. She was referred for a split-night study, but qualified only for a diagnostic study. Has a history of apneas noted by family and daytime hypersomnolence. She is a patient of Dr. Ulysses Iwrin. She was monitored using standard EEG lead montage. Frequent arousals during the study. Sleep efficiency was reduced at 53%. There were frequent arousals. REM latency was somewhat prolonged at 207 minutes. There were 48 central apneas, longest in duration 15 seconds. In addition, there were 61 hypopneas, longest duration 61 seconds. In addition, there were occasional respiratory event related arousals numbering 30. Apnea hypopnea index was elevated at 30.6 consistent with severe obstructive sleep apnea. The respiratory disturbance index was 34.3. Patient slept on his side during the study, which may minimize the severity of this illness. Lowest saturation recorded was 83%. There were frequent arousals during the study. All stages of sleep were recorded. The REM sleep was limited to 10%. IMPRESSION: Severe sleep apnea largely central, presumably related to his congestive heart failure; however, a dedicated CPAP titration is recommended. Job#: [id number] VAS
== END ==
LOC: SLEEP 21:18
PROVIDERS: ATTEND Internal Medicine
DX: G47.33 Obstructive sleep apnea (adult) (pediatric) (principal)
CPT/HCPCS: 95810

== ENCOUNTER → 2017-11-18 | Outpatient (CLI) | payer MEDICARE | LOC: SLEEP 21:40 | PROVIDERS: ATTEND Internal Medicine | DX: G47.33 Obstructive sleep apnea (adult) (pediatric) (principal) | CPT/HCPCS: 95811 ==

== ENCOUNTER 2019-09-14 15:43 | Observation (INO) | payer MEDICARE ==
[~2019-09-14] VITALS: Ht 177.8 cm; Wt 114.3 kg
[2019-09-14 16:17] LABS: BASOPHILS % 0.4 % (0.0-1.0); EOSINOPHILS # (AUTO) 0.3 (0.0-0.4); EOSINOPHILS % 2.3 % (0.0-6.0); HEMATOCRIT 40.4 % (38.2-49.6); HEMOGLOBIN 13.5 g/dL (14.0-18.0); LYMPHOCYTES # (AUTO) 2.2 (1.0-3.2); LYMPHOCYTES % 20.7 % (18.0-39.1); MEAN CORPUSCULAR HEMOGLOBIN 31.2 pg (28-32); MEAN CORPUSCULAR HGB CONC 33.4 g/dL (31-35); MEAN CORPUSCULAR VOLUME 93.3 fL (81-99); MONOCYTES # (AUTO) 0.8 (0.2-0.8); MONOCYTES % 7.7 % (4.4-11.3); NEUTROPHILS # (AUTO) 7.3 (2.1-6.9); NEUTROPHILS % 68.4 % (38.7-80.0); RED BLOOD COUNT 4.33 x10e6/uL (4.3-5.7)
[2019-09-14 16:33] LABS: CREATINE KINASE MB 5.2 ng/mL (0-5.0)
[2019-09-14 16:35] LABS: ALBUMIN 4.3 g/dL (3.5-5.0); ALBUMIN/GLOBULIN RATIO 1.4 (0.8-2.0); ANION GAP 18.8 mmol/L (8-16); CALCIUM 10.4 mg/dL (8.4-10.2); CREATININE, SERUM 3.91 mg/dL (0.72-1.25); POTASSIUM 4.8 mmol/L (3.5-5.1)
[2019-09-14 16:41] LABS: PLATELET COUNT 161 x10e3/uL (140-360)
--- NOTE | 2019-09-14 17:51 | Diagnostic Imaging Report ---
EXAM: CHEST 2 VIEWS DATE: 09/14/2019 4:54 PM INDICATION: ^dyspnea ^[id number] ^[id number] COMPARISON: Chest x-ray, 09/18/2017 FINDINGS: Lines and tubes: Stable appearance of implanted cardiac device on the left and transvenous lead positions. The heart is upper normal size. There is mild central pulmonary vascular prominence. No pulmonary consolidation, pleural effusion or pneumothorax. Upper abdomen unremarkable. No acute bony abnormality. IMPRESSION: Borderline heart size with mild central pulmonary vascular prominence. No pulmonary consolidation or pleural effusion. Signed by: Dr. Juan Ferrell M.D. on 09/14/2019 5:48 PM
[2019-09-14] MEDS ORDERED: SODIUM CHLORIDE FLUSH 10 ML SYR IV PRN (18:00)
[2019-09-14] MEDS ORDERED: ONDANSETRON HCL INJ 2MG/ML 2ML 2 MG/ML VIAL IV PRN (18:00)
[2019-09-14] MEDS ORDERED: MORPHINE SULFATE INJ 4 MG/ML INJ 1ML IV PRN (18:00)
[2019-09-14] MEDS ORDERED: SODIUM CHLORIDE 0.9% 500ML 500 ML IV ONE (18:00)
[2019-09-14] MEDS ORDERED: ASPIRIN 81 MG CHEW TAB PO ONE (18:00)
[2019-09-14 18:23] LABS: BILIRUBIN,URINE NEGATIVE (NEGATIVE); CLARITY,URINE CLEAR (CLEAR); COLOR,URINE YELLOW (YELLOW); KETONES,URINE NEGATIVE (NEGATIVE); LEUKOCYTE ESTERASE ,URINE NEGATIVE (NEGATIVE); NITRITE,URINE NEGATIVE (NEGATIVE); PROTEIN,URINE DIPSTICK NEGATIVE (NEGATIVE); URINE UROBILINOGEN 0.2 mg/dL (0.2 - 1)
[2019-09-14 18:38] LABS: EPITHELIAL CELLS,URINE RARE /LPF; RBC,URINE 0-5 /HPF (0-5)
[2019-09-14 19:37] LABS: CREATINE KINASE MB 5.2 ng/mL (0-5.0)
--- NOTE | 2019-09-14 20:40 | NUR ---
RECEIVED REPORT FROM [facility] ER NURSE. CALL LIGHT WITHIN REACH. PATIENT ARRIVED VIA STRETCHER FROM ER WITH BELONGINGS. PATIENT IN NO PAIN OR DISTRESS
[2019-09-14 20:45] VITALS: BP 148/71
[2019-09-14 21:15] VITALS: BP 148/71
[2019-09-14] MEDS ORDERED: LANTUS 3ML100 UNITS/ (22:32)
[2019-09-14] MEDS ORDERED: ENTRESTO 24 MG1 EACH (22:32)
[2019-09-14] MEDS ORDERED: LYRICA75 MG (22:32)
[2019-09-15] VITALS (9 sets, daily range): BP systolic 125–161; BP diastolic 65–77
[2019-09-15 03:18] LABS: BASOPHILS # (AUTO) 0.1 (0.0-0.1); BASOPHILS % 0.5 % (0.0-1.0); EOSINOPHILS # (AUTO) 0.3 (0.0-0.4); EOSINOPHILS % 3.1 % (0.0-6.0); HEMATOCRIT 39.7 % (38.2-49.6); HEMOGLOBIN 13.1 g/dL (14.0-18.0); LYMPHOCYTES # (AUTO) 2.1 (1.0-3.2); MEAN CORPUSCULAR HEMOGLOBIN 30.8 pg (28-32); MEAN CORPUSCULAR VOLUME 93.2 fL (81-99); MONOCYTES # (AUTO) 0.8 (0.2-0.8); MONOCYTES % 8.3 % (4.4-11.3); NEUTROPHILS # (AUTO) 6.1 (2.1-6.9); NEUTROPHILS % 65.9 % (38.7-80.0); PLATELET COUNT 98 x10e3/uL (140-360); RED BLOOD COUNT 4.26 x10e6/uL (4.3-5.7)
[2019-09-15 03:37] LABS: ALBUMIN/GLOBULIN RATIO 1.4 (0.8-2.0); ANION GAP 15.4 mmol/L (8-16); CALCIUM 10.3 mg/dL (8.4-10.2); CREATININE, SERUM 3.43 mg/dL (0.72-1.25); POTASSIUM 4.4 mmol/L (3.5-5.1)
[2019-09-15 07:00] LABS: CREATINE KINASE MB 8.3 ng/mL (0-5.0)
--- NOTE | 2019-09-15 07:11 | NUR ---
GAVE BEDSIDE SHIFT REPORT FROM PREVIOUS NURSE. CALL LIGHT WITHIN REACH. PATIENT IN RECLINER. PATIENT IS A&OX3 AND AMBULATES
--- NOTE | 2019-09-15 07:30 | NUR ---
Received patient this morning, a/ox3, no distress, in bed, rounds completed and NPO at the moment, will clarify reason for current NPO status, call light within reachVarun on the case, chronic renal failure with GFR at 18, creatinine 3.43, no cardiac distress, patient is diabetic. Will monitor.
--- NOTE | 2019-09-15 07:30 | NUR ---
Received patient this morning, a/ox3, no distress, in bed, rounds completed and NPO at the moment, ICD placement to be completed today, will monitor. Addendum: 09/15/19 at 0806 by Chasidy Christina RN Wrong chart
--- NOTE | 2019-09-15 08:00 | NUR ---
Call to Dr. Irwin's service by Fabiola for clarification of diet orders and waiting for call back
--- NOTE | 2019-09-15 08:44 | NUR ---
Call to Dr. Bond, states he was not notified about patient, reviewed labs with him and orders in place for IV fluids.
[2019-09-15] MEDS: SODIUM CHLORIDE 0.9% 1000ML 1,000 ML IV SCH ×2 (09:08→23:30)
[2019-09-15 10:25] LABS: CREATINE KINASE MB 8.4 ng/mL (0-5.0)
--- NOTE | 2019-09-15 10:45 | History and Physical ---
CHIEF COMPLAINT: He is a 64-year-old male patient of mine, presented to the emergency room as patient was having shortness of breath and worsening kidney function. HISTORY OF PRESENT ILLNESS: Mr. Tong Michael is a 64-year-old male patient with significant history of chronic renal disease, CHF, kidney stone, COPD and gout, who was at his magnetic doctor office, Dr. Bond and patient was short of breath. The patient was having worsening of kidney function and patient was feeling very weak, sleepy and tired so patient was sent to the ER for the further evaluation. PAST MEDICAL HISTORY: Significant medical history of CHF, kidney stone, chronic kidney disease, hyperlipidemia. PAST SURGICAL HISTORY: Appendectomy, pacemaker and AICD placement and heart stents. The patient had lithotripsies. ALLERGIES: NO KNOWN DRUG ALLERGIES. FAMILY HISTORY: Hypertension, diabetes mellitus. REVIEW OF SYSTEMS: A detailed multisystem review of system examination was done. As per history of present illness the patient denies having any nausea or vomiting. SOCIAL HISTORY: Denies smoking. Denies using alcohol. PHYSICAL EXAMINATION: GENERAL: He is a middle-aged male patient lying in bed, not in any acute distress. VITAL SIGNS: Temperature is 98.3, pulse rate 72, blood pressure 125/65, respiration rate 18. HEENT: Normocephalic, atraumatic. No JVD. No lymphadenopathy. LUNGS: Bilateral equal air entry. Occasional rales present. HEART: S1, S2. Regular. Systolic murmur present. ABDOMEN: Soft. Bowel sounds present. NEUROLOGIC: No focal neurological deficits. LABORATORY DATA: The patient has a BUN of 124 and creatinine of 3.43. Platelet of 98,000. Sugar of 204. ADMITTING IMPRESSION DIAGNOSES: Acute worsening renal failure in a patient with chronic kidney disease with azotemia. 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 The patient has hypertensive heart disease. The patient has COPD. PLAN: The patient will be admitted with above diagnosis. The patient will be given gentle IV fluids to correct the renal function. The patient will have a Nephrology consult with Dr. Bond. Juice Irwin MD [facility]/MODL /[id number]
[2019-09-15] MEDS: ALBUTEROL SULF 0.083% NEB SOLN 3 ML NEB INH SCH ×3 (10:50→20:30)
[2019-09-15] MEDS ORDERED: ALBUTEROL SULF 0.083% NEB SOLN 3 ML NEB ONE (10:53)
[2019-09-15] MEDS: INSULIN LISPRO 100 UNIT/1 ML 3ML VIAL SQ SCH ×2 (15:00→20:29)
[2019-09-15] MEDS: PREGABALIN 75 MG CAP PO SCH ×2 (15:00→20:26)
[2019-09-15] MEDS: SODIUM BICARBONATE 650 MG TAB PO SCH ×2 (15:00→20:26)
--- NOTE | 2019-09-15 15:56 | Consultation ---
DATE OF CONSULTATION: 09/15/2019 Renal Consultation Thank you, Dr. Irwin, for the consultation. HISTORY OF PRESENT ILLNESS: Mr. Fortune is a pleasant 64-year-old male patient of mine with chronic kidney disease, stage 4. Typically, baseline serum creatinine around 2.2 to 2.5 mg/dL. The patient came into my office with preclinic labs. He has apparently not followed up in several months and BUN in the 130s, creatinine around 3.6. The patient appeared to be volume depleted as well as uremic. The patient has complained of fatigue and tiredness. He was asked to go to the emergency room. He went to the emergency room and had blood work done and labs were very similar to what preclinic labs showed with a creatinine of 3.4 and BUN of 124. The patient has been admitted and placed on gentle IV fluid hydration. He does have a history of congestive heart failure and cannot tolerate too much fluid. His diuretics have been put on hold. Renal consultation has been asked for the management of his acute kidney injury on chronic kidney disease, stage 4. Currently, besides the symptoms outlined above, no other specific symptoms. No active chest pain. No fever. No chills. No nausea. No vomiting. No diarrhea. No abdominal pain. PAST MEDICAL HISTORY: As outlined above. Also, prior history of COPD, congestive heart failure, history of diabetes mellitus, and hypertension. MEDICATIONS: That he takes are albuterol, allopurinol, amlodipine, carvedilol, Plavix, insulin, metolazone, furosemide, sodium bicarbonate, and spironolactone. FAMILY HISTORY: Diabetes mellitus. SOCIAL HISTORY: No current tobacco or alcohol use. REVIEW OF SYSTEMS: See HPI, otherwise all systems negative. ALLERGIES: NO KNOWN DRUG ALLERGIES. PHYSICAL EXAMINATION: VITAL SIGNS: Blood pressure is 125/65, 72 pulse, and 17 respiration. HEENT: No cervical lymphadenopathy. NECK: Supple without masses. No obvious JVD. Moist appearing oral mucous. SKIN: Moist with good skin turgor. CHEST WALL: Good expansion. No chest wall tenderness. LUNGS: Clear to auscultation bilaterally. CARDIOVASCULAR: S1 and S2. No obvious gallop, rub, or murmur. ABDOMEN: Soft. Positive bowel sounds. Nontender. EXTREMITIES: No evidence of lower extremity edema. No clubbing. No cyanosis. NEUROLOGIC: Awake, alert, and oriented x3. Grossly nonfocal exam. LABORATORY DATA: As follows; sodium 142, potassium 4.4, chloride 105, bicarb 26, BUN 124, creatinine 3.4, glucose is 164, and calcium is 10.3. IMPRESSION AND PLAN: 1. Acute kidney injury on chronic kidney disease, stage 4, at baseline. Chronic kidney disease stage 4, appears to have prerenal azotemia, which may be secondary to the patient having hypercalcemia. He was taking vitamin D supplements also. For now, we will hold his diuretics and all vitamin D supplements. I will place him on normal saline 75 mL/hour. Recheck labs in the morning including basic metabolic panel, mag, phos, CBC, and will make further recommendations. Would resume his diuretics once his BUN and creatinine are closer to his baseline. 2. Hypertension. Continue current medications except the diuretics as outlined above. 3. Metabolic alkalosis secondary to volume contraction. Would hold his diuretics right now and give him IV fluid hydration of normal saline 75 mL/hour and make further recommendations. Thank you once again for the consultation, Dr. Irwin. We will follow the patient closely with you and make further recommendations. Cecilio Bond MD TH/MODL /[id number] cc: Juice Irwin MD
[2019-09-15] MEDS: CARVEDILOL 12.5 MG TAB PO SCH (16:39)
[2019-09-15] MEDS: ALLOPURINOL 100 MG TAB PO SCH (16:39)
--- NOTE | 2019-09-15 18:53 | NUR ---
RECEIVED BEDSIDE SHIFT REPORT FROM PREVIOUS NURSE. CALL LIGHT WITHIN REACH. PATIENT IN BED. PATIENT IS A&OX3 AND AMBULATES
--- NOTE | 2019-09-15 18:56 | NUR ---
Patient a/ox3, no distress, continues on IV fluids, will monitor.
--- NOTE | 2019-09-15 21:50 | NUR ---
GAVE REPORT TO DYLAN ALMENDAREZ NURSE. PATIENT LEFT VIA WHEELCHAIR WITH BELONGINGS. PATIENT IN NO PAIN OR DISTRESS. PATIENT COLLECTED ALL HIS BELONGINGS.
[2019-09-16] VITALS (8 sets, daily range): BP systolic 126–155; BP diastolic 60–78
[2019-09-16 06:44] LABS: BASOPHILS % 0.2 % (0.0-1.0); EOSINOPHILS # (AUTO) 0.3 (0.0-0.4); EOSINOPHILS % 2.2 % (0.0-6.0); HEMATOCRIT 43.5 % (38.2-49.6); HEMOGLOBIN 14.2 g/dL (14.0-18.0); LYMPHOCYTES # (AUTO) 1.7 (1.0-3.2); LYMPHOCYTES % 13.9 % (18.0-39.1); MEAN CORPUSCULAR HGB CONC 32.6 g/dL (31-35); MONOCYTES # (AUTO) 0.8 (0.2-0.8); MONOCYTES % 6.7 % (4.4-11.3); NEUTROPHILS # (AUTO) 9.4 (2.1-6.9); NEUTROPHILS % 76.7 % (38.7-80.0); PLATELET COUNT 109 x10e3/uL (140-360); RED BLOOD COUNT 4.58 x10e6/uL (4.3-5.7)
[2019-09-16] MEDS: ALBUTEROL SULF 0.083% NEB SOLN 3 ML NEB INH SCH ×4 (07:00→19:00)
[2019-09-16 07:01] LABS: ALBUMIN 4.3 g/dL (3.5-5.0); ALBUMIN/GLOBULIN RATIO 1.3 (0.8-2.0); CALCIUM 10.8 mg/dL (8.4-10.2); CREATININE, SERUM 3.01 mg/dL (0.72-1.25)
[2019-09-16 07:11] LABS: MAGNESIUM 2.1 MG/DL (1.3-2.1); PHOSPHORUS 4.5 MG/DL (2.3-4.7)
--- NOTE | 2019-09-16 07:28 | NUR ---
Bedside report and walking rounds completed with oncoming nurse. Patient stable and in bed, no issues or concerns noted. Call light within reaching.
[2019-09-16] MEDS ORDERED: CALCITRIOL 0.25 MCG CAP PO SCH ×2 (09:00)
--- NOTE | 2019-09-16 09:15 | NUR ---
Per Drs. Irwin and Varun, plan to dc tomorrow if labs continue to improve.
[2019-09-16] MEDS: LORATADINE 10 MG TAB PO SCH (10:28)
[2019-09-16] MEDS: CARVEDILOL 12.5 MG TAB PO SCH ×2 (10:28→16:59)
[2019-09-16] MEDS: ASPIRIN 81 MG CHEW TAB PO SCH (10:28)
[2019-09-16] MEDS: GLIMEPIRIDE 2 MG TAB PO SCH (10:28)
[2019-09-16] MEDS: SODIUM BICARBONATE 650 MG TAB PO SCH ×3 (10:29→20:37)
[2019-09-16] MEDS: CLOPIDOGREL BISULFATE 75 MG TAB PO SCH (10:29)
[2019-09-16] MEDS: INSULIN LISPRO 100 UNIT/1 ML 3ML VIAL SQ SCH ×3 (10:29→20:45)
[2019-09-16] MEDS: AMLODIPINE BESYLATE 10 MG TAB PO SCH (10:29)
[2019-09-16] MEDS: PREGABALIN 75 MG CAP PO SCH ×3 (10:29→20:37)
[2019-09-16] MEDS: ALLOPURINOL 100 MG TAB PO SCH ×2 (10:29→16:57)
--- NOTE | 2019-09-16 12:36 | Progress Note ---
DATE: 09/16/2019 Renal Progress Note SUBJECTIVE: Followed for acute kidney injury on chronic kidney disease, stage 4. BUN and creatinine continue to improve. The patient has a history of CHF and therefore would not tolerate morph, IV fluids. We will discontinue the IV fluids at this time. The patient is improving clinically. No nausea, no vomiting, no shortness of breath. OBJECTIVE: VITAL SIGNS: Have been noted and are stable. Blood pressure is 150s/70s, 84 pulse, 20 respirations, afebrile. LUNGS: Clear to auscultation bilaterally with minimal crackles at the bases. CARDIOVASCULAR: S1, S2. No rub ABDOMEN: Soft, nontender. EXTREMITIES: No edema. LABORATORY DATA: BUN is 101, creatinine is 3. Calcium is . IMPRESSION AND PLAN: 1. Acute kidney injury on chronic kidney disease, stage 4. Continues to improve. We will discontinue IV fluids since he has a history of congestive heart failure with low ejection fraction and will not tolerate further IV fluids. Upon discharge, can probably go back on his furosemide 40 mg once a day to twice a day and then gradually increase the dose. 2. Hypertension. Blood pressure stable. Continue to monitor. 3. Hypercalcemia. Discontinue all vitamin D analogs at this point. Once the calcium is normalized, can go back on low-dose . We will discontinue calcitriol. 4. History of congestive heart failure. Can resume just oral Lasix upon discharge 40 mg twice a day and reintroduce the other diuretics gradually. Cecilio Bond MD /MODL /[id number]
[2019-09-17 00:20] VITALS: BP 134/63
[2019-09-17 04:22] VITALS: BP 130/83
[2019-09-17 07:19] LABS: BASOPHILS % 0.3 % (0.0-1.0); EOSINOPHILS # (AUTO) 0.2 (0.0-0.4); EOSINOPHILS % 1.7 % (0.0-6.0); HEMATOCRIT 41.7 % (38.2-49.6); HEMOGLOBIN 13.5 g/dL (14.0-18.0); LYMPHOCYTES # (AUTO) 1.6 (1.0-3.2); LYMPHOCYTES % 12.8 % (18.0-39.1); MEAN CORPUSCULAR HGB CONC 32.4 g/dL (31-35); MEAN CORPUSCULAR VOLUME 95.6 fL (81-99); MONOCYTES # (AUTO) 0.9 (0.2-0.8); MONOCYTES % 6.9 % (4.4-11.3); NEUTROPHILS # (AUTO) 9.9 (2.1-6.9); PLATELET COUNT 114 x10e3/uL (140-360); RED BLOOD COUNT 4.36 x10e6/uL (4.3-5.7)
[2019-09-17 07:44] VITALS: BP 128/67
[2019-09-17 07:46] LABS: MAGNESIUM 2.1 MG/DL (1.3-2.1); PHOSPHORUS 3.5 MG/DL (2.3-4.7)
[2019-09-17] MEDS: ALBUTEROL SULF 0.083% NEB SOLN 3 ML NEB INH SCH ×3 (07:55→14:43)
[2019-09-17 07:57] LABS: ALBUMIN 4.3 g/dL (3.5-5.0); ALBUMIN/GLOBULIN RATIO 1.4 (0.8-2.0); ANION GAP 18.7 mmol/L (8-16); CALCIUM 10.6 mg/dL (8.4-10.2); CREATININE, SERUM 2.9 mg/dL (0.72-1.25); POTASSIUM 4.7 mmol/L (3.5-5.1)
[2019-09-17] MEDS: CLOPIDOGREL BISULFATE 75 MG TAB PO SCH (09:54)
[2019-09-17] MEDS: CARVEDILOL 12.5 MG TAB PO SCH (09:54)
[2019-09-17] MEDS: GLIMEPIRIDE 2 MG TAB PO SCH (09:54)
[2019-09-17] MEDS: AMLODIPINE BESYLATE 10 MG TAB PO SCH (09:54)
[2019-09-17] MEDS: SODIUM BICARBONATE 650 MG TAB PO SCH (09:54)
[2019-09-17] MEDS: LORATADINE 10 MG TAB PO SCH (09:54)
[2019-09-17] MEDS: ASPIRIN 81 MG CHEW TAB PO SCH (09:54)
[2019-09-17] MEDS: PREGABALIN 75 MG CAP PO SCH ×2 (09:54→15:00)
[2019-09-17] MEDS: INSULIN LISPRO 100 UNIT/1 ML 3ML VIAL SQ SCH (09:55)
[2019-09-17] MEDS: ALLOPURINOL 100 MG TAB PO SCH (09:55)
[2019-09-17 10:15] VITALS: BP 128/67
--- NOTE | 2019-09-17 10:43 | Diagnostic Imaging Report ---
EXAMINATION: CHEST 2 VIEWS INDICATION: ^wbc ^[id number] ^[id number] COMPARISON: 09/14/2019 FINDINGS: TUBES and LINES: AICD is intact. LUNGS: Lungs are well inflated. There are bibasilar atelectasis. There is mild prominence of the central pulmonary vasculature, consistent with pulmonary venous congestion, unchanged PLEURA: Trace of right pleural effusion. HEART AND MEDIASTINUM: Cardiac size is moderately enlarged, unchanged. There are atherosclerotic calcifications within the aorta. BONES AND SOFT TISSUES: No acute osseous lesion. Soft tissues are unremarkable. UPPER ABDOMEN: No free air under the diaphragm. IMPRESSION: Cardiomegaly with recurrent cardiogenic pulmonary edema, unchanged. Signed by: Talon Lopez MD on 09/17/2019 10:41 AM
[2019-09-17 10:59] VITALS: BP 119/57
[2019-09-17] MEDS ORDERED: FUROSEMIDE 40 MG TAB PO NR (14:45)
[2019-09-17] MEDS ORDERED: LASIX40 MG PO (14:51)
[2019-09-17 15:26] VITALS: BP 125/61
--- NOTE | 2019-09-17 16:07 | Progress Note ---
DATE: 09/17/2019 Nephrology Progress Note SUBJECTIVE: Denies any shortness of breath or nausea. OBJECTIVE: GENERAL: Looks very comfortable, sitting up in a chair. VITAL SIGNS: Blood pressure 119/57, pulse 84 per minute, respirations 19 per minute, and afebrile. NECK: Without jugular venous distention. CHEST: Bilateral symmetrical air movement. I do not hear any wheezing. CARDIOVASCULAR: Shows regular rate and rhythm. ABDOMEN: Nondistended. Soft. EXTREMITIES: Without pitting edema or cyanosis. NEUROLOGIC: Alert and oriented x3. LABORATORY DATA: White count 12.6, hemoglobin 13.5, and platelet count 114,000. Serum chemistry showed improved creatinine of 2.9, BUN 90, bicarb 20, potassium 4.7, sodium 143, total calcium 10.6, glucose 205. Albumin normal. IMPRESSION AND PLAN: 1. Acute kidney injury, continues to improve. Off IV fluids now. 2. Chronic kidney disease, stage IV. Follows with Dr. Bond as outpatient. 3. Hypertension, currently controlled on blood pressure medication. 4. Hypercalcemia, discontinued vitamin D analogs. Appears stable today. 5. Congestive heart failure, back on oral Lasix. Appears very comfortable. 6. Metabolic acidosis, continue oral sodium bicarbonate. Ton Molina MD [facility]/MODL /[id number]
--- NOTE | 2019-09-17 20:18 | Discharge Summary ---
IDENTIFICATION: He is a 64-year-old male patient of mine, presented with a complaint of shortness of breath, weakness, dizziness, and worsening kidney function. ADMITTING IMPRESSION DIAGNOSES: 1. Acute worsening of chronic renal failure with azotemia. 2. The patient has a chronic systolic and diastolic heart failure. 3. The patient has a type 2 diabetes mellitus causing renal failure. 4. The patient has hypertensive heart disease. 5. The patient also has a chronic obstructive pulmonary disease. HOSPITAL COURSE SUMMARY: The patient was admitted with above diagnosis and the patient's diuretic was hold where the patient has a Nephrology consultation done. The patient was given gentle IV fluids. The patient has a history of significant systolic CHF. The patient has elevated white blood count. The patient was monitored further and the urine was done to make sure the patient does not have any UTI or any infection. 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 Bond is monitoring for the renal function and now upon stabilization, the patient's renal function had improved and his creatinine had come down to 2.90 that was 3.43 and now the patient will be discharged home and follow up as outpatient with [place] as well as Nephrology and Cardiology. DISCHARGE DIAGNOSES: 1. Acute worsening of chronic renal failure. 2. Systolic and diastolic chronic congestive heart failure and chronic obstructive pulmonary disease and diabetes mellitus, hypertension, heart disease, and leukocytosis. MD TOMEKA Manriquez/DIAMONDL /[id number]
== END 2019-09-17 16:24 | disposition home or self-care (01) ==
LOC: ER 15:43 → ERHOLD 17:54 → INTOOBSV 17:54 → MED/SURG 20:53 → IMCU 09-15 21:33 → MED/SURG3 09-16 18:33
PROVIDERS: ADMIT Internal Medicine; ATTEND Internal Medicine
DX: N17.9 Acute kidney failure, unspecified (principal); E11.22 Type 2 diabetes mellitus with diabetic chronic kidney disease; I13.0 Hypertensive heart and chronic kidney disease with heart failure and stage 1 through stage 4 chronic kidney disease, or unspecified chronic kidney disease; N18.4 Chronic kidney disease, stage 4 (severe); I50.42 Chronic combined systolic (congestive) and diastolic (congestive) heart failure; E86.9 Volume depletion, unspecified; R79.89 Other specified abnormal findings of blood chemistry; J44.9 Chronic obstructive pulmonary disease, unspecified; I34.0 Nonrheumatic mitral (valve) insufficiency; I07.1 Rheumatic tricuspid insufficiency; I31.3 Pericardial effusion (noninflammatory); D72.829 Elevated white blood cell count, unspecified; E83.52 Hypercalcemia; E87.2 Acidosis; M10.9 Gout, unspecified; Z79.82 Long term (current) use of aspirin; Z79.02 Long term (current) use of antithrombotics/antiplatelets; Z79.4 Long term (current) use of insulin; Z95.810 Presence of automatic (implantable) cardiac defibrillator; Z95.5 Presence of coronary angioplasty implant and graft; Z82.49 Family history of ischemic heart disease and other diseases of the circulatory system; Z83.3 Family history of diabetes mellitus
CPT/HCPCS: 36415 ×4; 71046 ×2; 80053 ×4; 81001; 82550 ×2; 82553 ×2; 82948 ×4; 83735 ×2; 83880; 84100 ×2; 84484 ×2; 85025 ×4; 93005; 93306; 94640 ×6; 97161; 99284; G0378 ×4; J7030 ×2; J7040

== ENCOUNTER 2020-08-08 08:46 | Inpatient (IN) | payer MEDICARE ==
[~2020-08-08] VITALS: Ht 162.6 cm; Wt 113.9 kg
[~2020-08-08 08:46] MED LIST changes: +ENTRESTO 24 MG1 EACH; +LANTUS 3ML100 UNITS/ SQ; +LYRICA75 MG PO
[2020-08-08 09:24] LABS: BASOPHILS # (AUTO) 0.1 (0.0-0.1); BASOPHILS % 0.5 % (0.0-1.0); EOSINOPHILS # (AUTO) 0.3 (0.0-0.4); EOSINOPHILS % 2.2 % (0.0-6.0); LYMPHOCYTES # (AUTO) 1.5 (1.0-3.2); LYMPHOCYTES % 13.3 % (18.0-39.1); MEAN CORPUSCULAR HEMOGLOBIN 29.4 pg (28-32); MEAN CORPUSCULAR HGB CONC 31.8 g/dL (31-35); MEAN CORPUSCULAR VOLUME 92.4 fL (81-99); MONOCYTES % 9.1 % (4.4-11.3); NEUTROPHILS # (AUTO) 8.3 (2.1-6.9); NEUTROPHILS % 74.5 % (38.7-80.0); PLATELET COUNT 118 x10e3/uL (140-360); RED BLOOD COUNT 4.76 x10e6/uL (4.3-5.7); RED CELL DISTRIBUTION WIDTH 16.3 % (11.7-14.4)
[2020-08-08] MEDS ORDERED: trilogy (09:29)
[2020-08-08] MEDS ORDERED: COMBIVENT RESPIM4 GM IH (09:29)
[2020-08-08 10:26] LABS: INR 1.13; PROTHROMBIN TIME 15.2 seconds (11.9-14.5)
[2020-08-08 10:27] LABS: PARTIAL THROMBOPLASTIN TIME 32.7 seconds (23.8-35.5)
[2020-08-08 10:38] LABS: ALBUMIN 3.5 g/dL (3.5-5.0); ALBUMIN/GLOBULIN RATIO 1.1 (0.8-2.0); ANION GAP 16.2 mmol/L (8-16); CALCIUM 9.4 mg/dL (8.4-10.2); CREATININE, SERUM 2.56 mg/dL (0.72-1.25); MAGNESIUM 1.7 MG/DL (1.3-2.1); POTASSIUM 4.2 mmol/L (3.5-5.1)
[2020-08-08 10:48] LABS: CREATINE KINASE MB 5.8 ng/mL (0-5.0)
[2020-08-08] MEDS ORDERED: FUROSEMIDE INJ 10 MG/ML 4 ML VIAL IV ONE (11:00)
[2020-08-08] MEDS ORDERED: DEXTROSE 50% SYRINGE 50 ML IV PRN ×3 (11:00→13:30)
[2020-08-08] MEDS: INSULIN LISPRO 100 UNIT/1 ML 3ML VIAL SQ SCH ×3 (11:40→21:00)
[2020-08-08 12:10] LABS: CLARITY,URINE CLEAR (CLEAR); COLOR,URINE YELLOW (YELLOW); KETONES,URINE NEGATIVE (NEGATIVE); LEUKOCYTE ESTERASE ,URINE NEGATIVE (NEGATIVE); NITRITE,URINE NEGATIVE (NEGATIVE); PROTEIN,URINE DIPSTICK NEGATIVE (NEGATIVE); URINE UROBILINOGEN 0.2 mg/dL (0.2 - 1)
[2020-08-08] MEDS ORDERED: POLYETHYLENE GLYCOL 3350 17 GM PACK PO PRN (12:30)
[2020-08-08] MEDS ORDERED: DIPHENHYDRAMINE HCL 25 MG CAP PO PRN (12:30)
[2020-08-08] MEDS ORDERED: DOCUSATE SODIUM 100 MG CAP PO PRN (12:30)
[2020-08-08] MEDS ORDERED: POTASSIUM CHLORIDE 20 MEQ TAB CR PO PRN (12:30)
[2020-08-08] MEDS ORDERED: BENZONATATE 100 MG CAP PO PRN (12:30)
[2020-08-08] MEDS ORDERED: ACETAMINOPHEN 325 MG TAB PO PRN (12:30)
[2020-08-08] MEDS ORDERED: MELATONIN 5 MG TABLET PO PRN (12:30)
[2020-08-08] MEDS ORDERED: ONDANSETRON HCL INJ 2MG/ML 2ML 2 MG/ML VIAL IV PRN (12:30)
[2020-08-08] MEDS ORDERED: CHLORASEPTIC SPRAY 177 ML BTL MM PRN (12:30)
[2020-08-08] MEDS ORDERED: HYDROCODONE/APAP 5MG-325MG TAB PO PRN (12:30)
[2020-08-08 12:32] LABS: BACTERIA,URINE FEW /HPF; EPITHELIAL CELLS,URINE FEW /LPF; HYALINE CASTS 0-1 (0-1); RBC,URINE 0-5 /HPF (0-5); WBC,URINE (MAN) 0-5 /HPF (0-5)
[2020-08-08] MEDS ORDERED: ALBUMIN 25% 25GM 100ML 0.25 GM/ML BTL IV ONE (13:30)
[2020-08-08] MEDS ORDERED: ALBUMIN 25% 25GM 100ML 100 ML IV ONE (14:00)
[2020-08-08] MEDS ORDERED: SODIUM CHLORIDE 0.9% 250ML 250 ML ONE (14:44)
[2020-08-08] MEDS: CEFTRIAXONE SOD 1 GM/NS 50 ML 50 ML IV SCH (14:45)
[2020-08-08] MEDS: FUROSEMIDE INJ 100 MG in SODIUM CHLORIDE 0.9% 100 ML 90 ML IV SCH (15:00)
[2020-08-08 15:11] VITALS: BP_SYST 150
[2020-08-08] MEDS: ALBUTEROL/IPRATROPIUM 3 ML NEB NEB PRN (15:25)
[2020-08-08 15:59] VITALS: BP 150/82
[2020-08-08] MEDS: ENOXAPARIN SOD INJ 40 MG/0.4 ML SYR SC SCH (17:00)
[2020-08-08] MEDS ORDERED: FUROSEMIDE INJ 10 MG/ML 4 ML VIAL IV SCH (17:00)
[2020-08-08] MEDS: CARVEDILOL 12.5 MG TAB PO SCH (18:00)
[2020-08-08 18:26] LABS: CREATINE KINASE MB 6.4 ng/mL (0-5.0)
[2020-08-08 19:00] VITALS: BP 163/70
[2020-08-08 21:00] VITALS: BP 163/70
[2020-08-08] MEDS: HYDRALAZINE HCL 25 MG TAB PO SCH (21:34)
[2020-08-08] MEDS: ISOSORBIDE DINITRATE 20 MG TAB PO SCH (21:35)
[2020-08-08] MEDS: ATORVASTATIN 40 MG TAB PO SCH (21:35)
[2020-08-08 23:57] VITALS: BP 137/91
[2020-08-09] VITALS (7 sets, daily range): BP systolic 108–142; BP diastolic 69–96
[2020-08-09] MEDS: FUROSEMIDE INJ 100 MG in SODIUM CHLORIDE 0.9% 100 ML 90 ML IV SCH ×2 (00:48→09:00)
[2020-08-09 01:28] LABS: CREATINE KINASE MB 6.1 ng/mL (0-5.0)
[2020-08-09 06:12] LABS: BASOPHILS # (AUTO) 0.1 (0.0-0.1); BASOPHILS % 0.5 % (0.0-1.0); EOSINOPHILS # (AUTO) 0.3 (0.0-0.4); EOSINOPHILS % 2.4 % (0.0-6.0); HEMATOCRIT 44.2 % (38.2-49.6); HEMOGLOBIN 14.1 g/dL (14.0-18.0); LYMPHOCYTES # (AUTO) 1.4 (1.0-3.2); LYMPHOCYTES % 11.8 % (18.0-39.1); MEAN CORPUSCULAR HEMOGLOBIN 29.9 pg (28-32); MEAN CORPUSCULAR HGB CONC 31.9 g/dL (31-35); MEAN CORPUSCULAR VOLUME 93.8 fL (81-99); MONOCYTES # (AUTO) 1.1 (0.2-0.8); NEUTROPHILS # (AUTO) 9.1 (2.1-6.9); NEUTROPHILS % 75.9 % (38.7-80.0); PLATELET COUNT 115 x10e3/uL (140-360); RED BLOOD COUNT 4.71 x10e6/uL (4.3-5.7); RED CELL DISTRIBUTION WIDTH 16.1 % (11.7-14.4)
[2020-08-09 06:50] LABS: ALBUMIN 3.9 g/dL (3.5-5.0); ALBUMIN/GLOBULIN RATIO 1.3 (0.8-2.0); ANION GAP 16.3 mmol/L (8-16); CREATININE, SERUM 2.35 mg/dL (0.72-1.25); POTASSIUM 4.3 mmol/L (3.5-5.1)
[2020-08-09 07:03] LABS: CHOL/HDL RATIO 2.9 (3.9-4.7); MAGNESIUM 1.7 MG/DL (1.3-2.1); PHOSPHORUS 4.4 MG/DL (2.3-4.7)
[2020-08-09] MEDS: INSULIN LISPRO 100 UNIT/1 ML 3ML VIAL SQ SCH ×4 (07:30→21:00)
[2020-08-09] MEDS: PANTOPRAZOLE SOD 40 MG TABEC PO SCH (07:30)
[2020-08-09] MEDS: ISOSORBIDE DINITRATE 20 MG TAB PO SCH ×3 (09:00→21:45)
[2020-08-09] MEDS: CARVEDILOL 12.5 MG TAB PO SCH ×2 (09:00→16:59)
[2020-08-09] MEDS: CLOPIDOGREL BISULFATE 75 MG TAB PO SCH (09:00)
[2020-08-09] MEDS: HYDRALAZINE HCL 25 MG TAB PO SCH ×3 (09:00→21:45)
[2020-08-09] MEDS: CEFTRIAXONE SOD 1 GM/NS 50 ML 50 ML IV SCH (13:30)
[2020-08-09] MEDS: ENOXAPARIN SOD INJ 40 MG/0.4 ML SYR SC SCH (17:00)
[2020-08-09] MEDS ORDERED: CARVEDILOL 12.5 MG TAB PO SCH (17:00)
[2020-08-09] MEDS: ATORVASTATIN 40 MG TAB PO SCH (21:45)
[2020-08-10] VITALS (7 sets, daily range): BP systolic 126–138; BP diastolic 63–77
[2020-08-10] MEDS: FUROSEMIDE INJ 100 MG in SODIUM CHLORIDE 0.9% 100 ML 90 ML IV SCH ×3 (00:56→12:46)
[2020-08-10 05:25] LABS: BASOPHILS # (AUTO) 0.1 (0.0-0.1); BASOPHILS % 0.6 % (0.0-1.0); EOSINOPHILS # (AUTO) 0.2 (0.0-0.4); EOSINOPHILS % 2.4 % (0.0-6.0); HEMATOCRIT 45.1 % (38.2-49.6); HEMOGLOBIN 14.2 g/dL (14.0-18.0); LYMPHOCYTES # (AUTO) 1.5 (1.0-3.2); LYMPHOCYTES % 15.2 % (18.0-39.1); MEAN CORPUSCULAR HEMOGLOBIN 29.2 pg (28-32); MEAN CORPUSCULAR HGB CONC 31.5 g/dL (31-35); MEAN CORPUSCULAR VOLUME 92.8 fL (81-99); MONOCYTES % 9.5 % (4.4-11.3); NEUTROPHILS # (AUTO) 7.2 (2.1-6.9); NEUTROPHILS % 71.9 % (38.7-80.0); PLATELET COUNT 112 x10e3/uL (140-360); RED BLOOD COUNT 4.86 x10e6/uL (4.3-5.7)
[2020-08-10 05:52] LABS: ALBUMIN/GLOBULIN RATIO 1.4 (0.8-2.0); CALCIUM 10.1 mg/dL (8.4-10.2); CREATININE, SERUM 2.42 mg/dL (0.72-1.25)
[2020-08-10] MEDS: ALBUTEROL/IPRATROPIUM 3 ML NEB NEB PRN (07:55)
[2020-08-10] MEDS: HYDRALAZINE HCL 25 MG TAB PO SCH ×3 (08:14→21:03)
[2020-08-10] MEDS: PANTOPRAZOLE SOD 40 MG TABEC PO SCH (08:14)
[2020-08-10] MEDS: ISOSORBIDE DINITRATE 20 MG TAB PO SCH ×3 (08:15→21:04)
[2020-08-10] MEDS: CARVEDILOL 12.5 MG TAB PO SCH ×2 (08:15→16:38)
[2020-08-10] MEDS: CALCITRIOL 0.25 MCG CAP PO SCH (08:16)
[2020-08-10] MEDS: SERTRALINE HCL 50 MG TAB PO SCH (08:16)
[2020-08-10] MEDS: CLOPIDOGREL BISULFATE 75 MG TAB PO SCH (08:16)
[2020-08-10] MEDS: INSULIN LISPRO 100 UNIT/1 ML 3ML VIAL SQ SCH ×4 (08:30→21:04)
[2020-08-10] MEDS ORDERED: NON-FORMULARY MEDICATION (Sertraline Hcl 25 MG) PO SCH (09:00)
[2020-08-10] MEDS ORDERED: CLOPIDOGREL BISULFATE 75 MG TAB PO SCH (09:00)
[2020-08-10] MEDS: AMLODIPINE BESYLATE 10 MG TAB PO SCH (10:00)
[2020-08-10] MEDS: CEFTRIAXONE SOD 1 GM/NS 50 ML 50 ML IV SCH (15:00)
[2020-08-10] MEDS: ENOXAPARIN SOD INJ 40 MG/0.4 ML SYR SC SCH (16:37)
[2020-08-10] MEDS: ATORVASTATIN 40 MG TAB PO SCH (21:04)
[2020-08-11] VITALS (9 sets, daily range): BP systolic 122–135; BP diastolic 50–74
[2020-08-11] MEDS: FUROSEMIDE INJ 100 MG in SODIUM CHLORIDE 0.9% 100 ML 90 ML IV SCH ×4 (03:45→23:40)
[2020-08-11 05:55] LABS: BASOPHILS # (AUTO) 0.1 (0.0-0.1); BASOPHILS % 0.6 % (0.0-1.0); EOSINOPHILS # (AUTO) 0.3 (0.0-0.4); EOSINOPHILS % 2.6 % (0.0-6.0); HEMATOCRIT 47.4 % (38.2-49.6); HEMOGLOBIN 15.1 g/dL (14.0-18.0); LYMPHOCYTES # (AUTO) 1.5 (1.0-3.2); MEAN CORPUSCULAR HEMOGLOBIN 29.9 pg (28-32); MEAN CORPUSCULAR HGB CONC 31.9 g/dL (31-35); MEAN CORPUSCULAR VOLUME 93.9 fL (81-99); MONOCYTES % 9.9 % (4.4-11.3); NEUTROPHILS # (AUTO) 7.7 (2.1-6.9); NEUTROPHILS % 72.5 % (38.7-80.0); PLATELET COUNT 132 x10e3/uL (140-360); RED BLOOD COUNT 5.05 x10e6/uL (4.3-5.7); RED CELL DISTRIBUTION WIDTH 15.8 % (11.7-14.4)
[2020-08-11 06:09] LABS: ALBUMIN 4.1 g/dL (3.5-5.0); ALBUMIN/GLOBULIN RATIO 1.2 (0.8-2.0); ANION GAP 18.3 mmol/L (8-16); CALCIUM 10.4 mg/dL (8.4-10.2); CREATININE, SERUM 2.64 mg/dL (0.72-1.25); POTASSIUM 4.3 mmol/L (3.5-5.1)
[2020-08-11] MEDS: INSULIN LISPRO 100 UNIT/1 ML 3ML VIAL SQ SCH ×4 (08:30→21:00)
[2020-08-11] MEDS: PANTOPRAZOLE SOD 40 MG TABEC PO SCH (08:30)
[2020-08-11] MEDS: CARVEDILOL 12.5 MG TAB PO SCH ×2 (09:23→17:07)
[2020-08-11] MEDS: CLOPIDOGREL BISULFATE 75 MG TAB PO SCH (09:23)
[2020-08-11] MEDS: ISOSORBIDE DINITRATE 20 MG TAB PO SCH ×3 (09:23→21:08)
[2020-08-11] MEDS: SERTRALINE HCL 50 MG TAB PO SCH (09:23)
[2020-08-11] MEDS: AMLODIPINE BESYLATE 10 MG TAB PO SCH (09:23)
[2020-08-11] MEDS: CALCITRIOL 0.25 MCG CAP PO SCH (09:23)
[2020-08-11] MEDS: HYDRALAZINE HCL 25 MG TAB PO SCH ×3 (11:00→21:07)
[2020-08-11] MEDS: ALBUTEROL/IPRATROPIUM 3 ML NEB NEB PRN (13:20)
[2020-08-11] MEDS ORDERED: MAGNESIUM SULFATE 2GM/50ML 50 ML IV ONE (13:30)
[2020-08-11] MEDS ORDERED: SODIUM CHLORIDE 0.9% 250ML 250 ML ONE (13:34)
[2020-08-11] MEDS: METOLAZONE 5 MG TAB PO SCH (15:34)
[2020-08-11] MEDS: CEFTRIAXONE SOD 1 GM/NS 50 ML 50 ML IV SCH (15:34)
[2020-08-11] MEDS: ENOXAPARIN SOD INJ 40 MG/0.4 ML SYR SC SCH (16:42)
[2020-08-11] MEDS: ATORVASTATIN 40 MG TAB PO SCH (21:08)
[2020-08-12 05:28] VITALS: BP 129/56
[2020-08-12 05:40] LABS: BASOPHILS % 0.4 % (0.0-1.0); EOSINOPHILS # (AUTO) 0.1 (0.0-0.4); EOSINOPHILS % 1.1 % (0.0-6.0); HEMATOCRIT 43.8 % (38.2-49.6); HEMOGLOBIN 13.9 g/dL (14.0-18.0); LYMPHOCYTES # (AUTO) 0.9 (1.0-3.2); LYMPHOCYTES % 8.7 % (18.0-39.1); MEAN CORPUSCULAR HEMOGLOBIN 29.2 pg (28-32); MEAN CORPUSCULAR HGB CONC 31.7 g/dL (31-35); MONOCYTES # (AUTO) 0.8 (0.2-0.8); MONOCYTES % 7.2 % (4.4-11.3); NEUTROPHILS # (AUTO) 8.6 (2.1-6.9); NEUTROPHILS % 82.2 % (38.7-80.0); PLATELET COUNT 119 x10e3/uL (140-360); RED BLOOD COUNT 4.76 x10e6/uL (4.3-5.7); RED CELL DISTRIBUTION WIDTH 15.6 % (11.7-14.4)
[2020-08-12 05:50] LABS: ANION GAP 20.1 mmol/L (8-16); CALCIUM 9.7 mg/dL (8.4-10.2); CREATININE, SERUM 2.52 mg/dL (0.72-1.25); POTASSIUM 4.1 mmol/L (3.5-5.1)
[2020-08-12 06:33] LABS: PHOSPHORUS 4.7 MG/DL (2.3-4.7)
[2020-08-12] MEDS: CARVEDILOL 12.5 MG TAB PO SCH ×2 (08:15→16:00)
[2020-08-12] MEDS: SERTRALINE HCL 50 MG TAB PO SCH (08:15)
[2020-08-12] MEDS: METOLAZONE 5 MG TAB PO SCH (08:15)
[2020-08-12] MEDS: AMLODIPINE BESYLATE 10 MG TAB PO SCH (08:15)
[2020-08-12] MEDS: PANTOPRAZOLE SOD 40 MG TABEC PO SCH (08:15)
[2020-08-12] MEDS: ISOSORBIDE DINITRATE 20 MG TAB PO SCH ×3 (08:15→20:42)
[2020-08-12] MEDS: HYDRALAZINE HCL 25 MG TAB PO SCH ×3 (08:15→20:42)
[2020-08-12] MEDS: CLOPIDOGREL BISULFATE 75 MG TAB PO SCH (08:15)
[2020-08-12] MEDS: FUROSEMIDE INJ 100 MG in SODIUM CHLORIDE 0.9% 100 ML 90 ML IV SCH ×3 (08:15→19:41)
[2020-08-12] MEDS: INSULIN LISPRO 100 UNIT/1 ML 3ML VIAL SQ SCH ×4 (08:15→21:00)
[2020-08-12 09:18] VITALS: BP 137/75
[2020-08-12 11:50] VITALS: BP_SYST 133; BP_SYST 146; BP_DIAS 52; BP_DIAS 64
[2020-08-12] MEDS: CEFTRIAXONE SOD 1 GM/NS 50 ML 50 ML IV SCH (13:59)
[2020-08-12] MEDS: ALBUTEROL/IPRATROPIUM 3 ML NEB NEB PRN (15:07)
[2020-08-12] MEDS: ENOXAPARIN SOD INJ 40 MG/0.4 ML SYR SC SCH (16:00)
[2020-08-12 16:11] VITALS: BP 138/67
[2020-08-12 20:00] VITALS: BP 147/77
[2020-08-12] MEDS: ATORVASTATIN 40 MG TAB PO SCH (20:42)
[2020-08-12 20:54] VITALS: BP 147/77
[2020-08-13] VITALS (8 sets, daily range): BP systolic 129–140; BP diastolic 56–86
[2020-08-13 05:50] LABS: BASOPHILS % 0.4 % (0.0-1.0); EOSINOPHILS # (AUTO) 0.1 (0.0-0.4); EOSINOPHILS % 1.1 % (0.0-6.0); HEMATOCRIT 42.9 % (38.2-49.6); HEMOGLOBIN 13.9 g/dL (14.0-18.0); LYMPHOCYTES # (AUTO) 0.9 (1.0-3.2); LYMPHOCYTES % 8.5 % (18.0-39.1); MEAN CORPUSCULAR HEMOGLOBIN 29.4 pg (28-32); MEAN CORPUSCULAR HGB CONC 32.4 g/dL (31-35); MEAN CORPUSCULAR VOLUME 90.9 fL (81-99); MONOCYTES # (AUTO) 0.9 (0.2-0.8); MONOCYTES % 8.3 % (4.4-11.3); NEUTROPHILS # (AUTO) 8.7 (2.1-6.9); NEUTROPHILS % 81.2 % (38.7-80.0); PLATELET COUNT 110 x10e3/uL (140-360); RED BLOOD COUNT 4.72 x10e6/uL (4.3-5.7); RED CELL DISTRIBUTION WIDTH 15.3 % (11.7-14.4)
[2020-08-13] MEDS: FUROSEMIDE INJ 100 MG in SODIUM CHLORIDE 0.9% 100 ML 90 ML IV SCH ×2 (06:02→20:38)
[2020-08-13 06:50] LABS: ANION GAP 21.8 mmol/L (8-16); CALCIUM 9.8 mg/dL (8.4-10.2); CREATININE, SERUM 2.61 mg/dL (0.72-1.25); POTASSIUM 3.8 mmol/L (3.5-5.1)
[2020-08-13] MEDS: INSULIN LISPRO 100 UNIT/1 ML 3ML VIAL SQ SCH ×4 (07:30→21:00)
[2020-08-13] MEDS: PANTOPRAZOLE SOD 40 MG TABEC PO SCH (07:30)
[2020-08-13] MEDS: METOLAZONE 5 MG TAB PO SCH (09:00)
[2020-08-13] MEDS: AMLODIPINE BESYLATE 10 MG TAB PO SCH (09:00)
[2020-08-13] MEDS: HYDRALAZINE HCL 25 MG TAB PO SCH ×3 (09:00→21:00)
[2020-08-13] MEDS: CLOPIDOGREL BISULFATE 75 MG TAB PO SCH (09:00)
[2020-08-13] MEDS: SERTRALINE HCL 50 MG TAB PO SCH (09:00)
[2020-08-13] MEDS: ISOSORBIDE DINITRATE 20 MG TAB PO SCH ×3 (09:00→21:00)
[2020-08-13] MEDS: CARVEDILOL 12.5 MG TAB PO SCH ×2 (09:00→16:26)
[2020-08-13] MEDS ORDERED: HEPARIN SOD (PORCINE) 1000 UNIT/ML SDV ONE (13:16)
[2020-08-13] MEDS ORDERED: LIDOCAINE HCL 1% LOCAL INJ 20 ML VIAL ONE (13:18)
[2020-08-13] MEDS: CEFTRIAXONE SOD 1 GM/NS 50 ML 50 ML IV SCH (14:00)
[2020-08-13] MEDS: ENOXAPARIN SOD INJ 40 MG/0.4 ML SYR SC SCH (16:12)
[2020-08-13] MEDS ORDERED: MANNITOL 25% 12.5GM/50 ML VIAL IV PRN (16:15)
[2020-08-13] MEDS ORDERED: SODIUM CHLORIDE 0.9% 1000ML 2,000 ML IV PRN (16:15)
[2020-08-13] MEDS ORDERED: HEPARIN SOD (PORCINE) 1000 UNIT/ML SDV IV PRN (16:15)
[2020-08-13] MEDS: ALBUTEROL/IPRATROPIUM 3 ML NEB NEB PRN (19:02)
[2020-08-13] MEDS: ATORVASTATIN 40 MG TAB PO SCH (21:00)
[2020-08-14] VITALS (8 sets, daily range): BP systolic 100–153; BP diastolic 60–97
[2020-08-14] MEDS: FUROSEMIDE INJ 100 MG in SODIUM CHLORIDE 0.9% 100 ML 90 ML IV SCH ×2 (02:07→07:34)
[2020-08-14 05:26] LABS: BASOPHILS # (AUTO) 0.1 (0.0-0.1); BASOPHILS % 0.5 % (0.0-1.0); EOSINOPHILS # (AUTO) 0.1 (0.0-0.4); EOSINOPHILS % 1.1 % (0.0-6.0); HEMATOCRIT 44.9 % (38.2-49.6); HEMOGLOBIN 14.7 g/dL (14.0-18.0); LYMPHOCYTES # (AUTO) 1.1 (1.0-3.2); LYMPHOCYTES % 9.6 % (18.0-39.1); MEAN CORPUSCULAR HEMOGLOBIN 30.2 pg (28-32); MEAN CORPUSCULAR HGB CONC 32.7 g/dL (31-35); MEAN CORPUSCULAR VOLUME 92.4 fL (81-99); MONOCYTES % 9.4 % (4.4-11.3); NEUTROPHILS # (AUTO) 8.8 (2.1-6.9); PLATELET COUNT 119 x10e3/uL (140-360); RED BLOOD COUNT 4.86 x10e6/uL (4.3-5.7); RED CELL DISTRIBUTION WIDTH 15.2 % (11.7-14.4)
[2020-08-14 05:43] LABS: ANION GAP 22.8 mmol/L (8-16); CALCIUM 9.8 mg/dL (8.4-10.2); CREATININE, SERUM 2.44 mg/dL (0.72-1.25); MAGNESIUM 1.9 MG/DL (1.3-2.1); PHOSPHORUS 4.4 MG/DL (2.3-4.7); POTASSIUM 3.8 mmol/L (3.5-5.1)
[2020-08-14] MEDS: PANTOPRAZOLE SOD 40 MG TABEC PO SCH (07:30)
[2020-08-14] MEDS: INSULIN LISPRO 100 UNIT/1 ML 3ML VIAL SQ SCH ×4 (07:30→21:00)
[2020-08-14] MEDS: SERTRALINE HCL 50 MG TAB PO SCH (09:00)
[2020-08-14] MEDS: CLOPIDOGREL BISULFATE 75 MG TAB PO SCH (09:00)
[2020-08-14] MEDS: AMLODIPINE BESYLATE 10 MG TAB PO SCH (09:00)
[2020-08-14] MEDS: ISOSORBIDE DINITRATE 20 MG TAB PO SCH ×3 (09:00→21:07)
[2020-08-14] MEDS: CARVEDILOL 12.5 MG TAB PO SCH ×2 (09:00→17:00)
[2020-08-14] MEDS: METOLAZONE 5 MG TAB PO SCH (09:00)
[2020-08-14] MEDS: HYDRALAZINE HCL 25 MG TAB PO SCH ×3 (09:00→21:07)
[2020-08-14] MEDS ORDERED: ALBUMIN 25% 12.5GM 0.25 GM/ML BTL IV PRN (11:00)
[2020-08-14] MEDS ORDERED: SODIUM CHLORIDE 0.9% 250ML 500 ML IV PRN (11:00)
[2020-08-14] MEDS ORDERED: FENTANYL CITRATE/PF 100MCG/2 ML INJ ONE (11:59)
[2020-08-14] MEDS ORDERED: HEPARIN SOD (PORCINE) 1000 UNIT/ML SDV ONE (11:59)
[2020-08-14] MEDS ORDERED: MIDAZOLAM HCL 2 MG/2 ML VIAL ONE (11:59)
[2020-08-14] MEDS ORDERED: SODIUM CHLORIDE 0.9% 250ML 250 ML ONE (12:06)
[2020-08-14] MEDS ORDERED: LIDOCAINE HCL 1% LOCAL INJ 20 ML VIAL ONE (12:06)
[2020-08-14] MEDS: CEFTRIAXONE SOD 1 GM/NS 50 ML 50 ML IV SCH (15:50)
[2020-08-14] MEDS: FUROSEMIDE 40 MG TAB PO SCH (18:00)
[2020-08-14] MEDS: HEPARIN SOD (PORCINE) 5,000 UNIT/ML VIAL SC SCH (21:03)
[2020-08-14] MEDS: ATORVASTATIN 40 MG TAB PO SCH (21:06)
[2020-08-15] VITALS (8 sets, daily range): BP systolic 134–154; BP diastolic 66–84
[2020-08-15 05:07] LABS: BASOPHILS # (AUTO) 0.1 (0.0-0.1); BASOPHILS % 0.4 % (0.0-1.0); EOSINOPHILS # (AUTO) 0.1 (0.0-0.4); EOSINOPHILS % 0.7 % (0.0-6.0); HEMATOCRIT 47.1 % (38.2-49.6); HEMOGLOBIN 15.2 g/dL (14.0-18.0); LYMPHOCYTES % 8.5 % (18.0-39.1); MEAN CORPUSCULAR HEMOGLOBIN 29.5 pg (28-32); MEAN CORPUSCULAR HGB CONC 32.3 g/dL (31-35); MEAN CORPUSCULAR VOLUME 91.3 fL (81-99); MONOCYTES # (AUTO) 1.2 (0.2-0.8); MONOCYTES % 10.6 % (4.4-11.3); NEUTROPHILS # (AUTO) 8.9 (2.1-6.9); NEUTROPHILS % 79.4 % (38.7-80.0); PLATELET COUNT 102 x10e3/uL (140-360); RED BLOOD COUNT 5.16 x10e6/uL (4.3-5.7); RED CELL DISTRIBUTION WIDTH 15.1 % (11.7-14.4)
[2020-08-15 05:21] LABS: ANION GAP 22.1 mmol/L (8-16); CALCIUM 9.9 mg/dL (8.4-10.2); CREATININE, SERUM 2.98 mg/dL (0.72-1.25); POTASSIUM 4.1 mmol/L (3.5-5.1)
[2020-08-15] MEDS: FUROSEMIDE 40 MG TAB PO SCH ×2 (06:00→18:00)
[2020-08-15 07:25] LABS: PLATELET ESTIMATE ADEQUATE
[2020-08-15 07:26] LABS: PLATELET MORPHOLOGY COMMENT NORMAL
[2020-08-15] MEDS: INSULIN LISPRO 100 UNIT/1 ML 3ML VIAL SQ SCH ×4 (08:00→21:02)
[2020-08-15] MEDS: HEPARIN SOD (PORCINE) 5,000 UNIT/ML VIAL SC SCH ×2 (09:00→21:02)
[2020-08-15] MEDS: HYDRALAZINE HCL 25 MG TAB PO SCH ×3 (09:00→20:56)
[2020-08-15] MEDS: SERTRALINE HCL 50 MG TAB PO SCH (09:12)
[2020-08-15] MEDS: CLOPIDOGREL BISULFATE 75 MG TAB PO SCH (09:12)
[2020-08-15] MEDS: CARVEDILOL 12.5 MG TAB PO SCH ×2 (09:12→17:00)
[2020-08-15] MEDS: AMLODIPINE BESYLATE 10 MG TAB PO SCH (09:13)
[2020-08-15] MEDS: ISOSORBIDE DINITRATE 20 MG TAB PO SCH ×3 (09:13→20:57)
[2020-08-15] MEDS: METOLAZONE 5 MG TAB PO SCH (09:14)
[2020-08-15] MEDS: PANTOPRAZOLE SOD 40 MG TABEC PO SCH (09:20)
[2020-08-15] MEDS: CEFTRIAXONE SOD 1 GM/NS 50 ML 50 ML IV SCH (14:00)
[2020-08-15] MEDS: ATORVASTATIN 40 MG TAB PO SCH (20:57)
[2020-08-15] MEDS ORDERED: INSULIN GLARGINE 100 UNITS/ML VIAL SQ SCH (21:00)
[2020-08-16] VITALS (8 sets, daily range): BP systolic 124–143; BP diastolic 64–97
[2020-08-16] MEDS: FUROSEMIDE 40 MG TAB PO SCH ×2 (05:29→17:14)
[2020-08-16 05:41] LABS: ANION GAP 17.8 mmol/L (8-16); CALCIUM 9.8 mg/dL (8.4-10.2); CREATININE, SERUM 2.68 mg/dL (0.72-1.25); POTASSIUM 3.8 mmol/L (3.5-5.1)
[2020-08-16] MEDS: INSULIN LISPRO 100 UNIT/1 ML 3ML VIAL SQ SCH ×3 (07:30→16:30)
[2020-08-16] MEDS: HEPARIN SOD (PORCINE) 5,000 UNIT/ML VIAL SC SCH (09:00)
[2020-08-16] MEDS: PANTOPRAZOLE SOD 40 MG TABEC PO SCH (09:02)
[2020-08-16] MEDS: HYDRALAZINE HCL 25 MG TAB PO SCH ×2 (09:03→14:18)
[2020-08-16] MEDS: CARVEDILOL 12.5 MG TAB PO SCH ×2 (09:03→17:14)
[2020-08-16] MEDS: CLOPIDOGREL BISULFATE 75 MG TAB PO SCH (09:04)
[2020-08-16] MEDS: AMLODIPINE BESYLATE 10 MG TAB PO SCH (09:04)
[2020-08-16] MEDS: ISOSORBIDE DINITRATE 20 MG TAB PO SCH ×2 (09:04→14:19)
[2020-08-16] MEDS: SERTRALINE HCL 50 MG TAB PO SCH (09:06)
[2020-08-16] MEDS: METOLAZONE 5 MG TAB PO SCH (09:06)
[2020-08-16] MEDS: CEFTRIAXONE SOD 1 GM/NS 50 ML 50 ML IV SCH (14:18)
[2020-08-16] MEDS ORDERED: SODIUM CHLORIDE 0.9% 50ML 50 ML ONE (14:36)
[2020-08-16] MEDS ORDERED: LANTUS100 UNIT/1 SQ (16:22)
[2020-08-16] MEDS ORDERED: NOVOLOG100 UNIT/1 SC (16:24)
== END 2020-08-16 22:16 | disposition home or self-care (01) | DRG 291 ==
LOC: ER 09:02 → ERHOLD 11:10 → MED/SURG2 14:16
PROVIDERS: ADMIT Internal Medicine; ATTEND Internal Medicine
PROC: 0JH63XZ Insertion of Tunneled Vascular Access Device into Chest Subcutaneous Tissue and Fascia, Percutaneous Approach (ICD-10-PCS; principal; 2020-08-14)
PROC: 02HV33Z Insertion of Infusion Device into Superior Vena Cava, Percutaneous Approach (ICD-10-PCS; 2020-08-14)
PROC: 02HV33Z Insertion of Infusion Device into Superior Vena Cava, Percutaneous Approach (ICD-10-PCS; 2020-08-14)
PROC: 5A1D70Z Performance of Urinary Filtration, Intermittent, Less than 6 Hours Per Day (ICD-10-PCS; 2020-08-14)
DX: I13.0 Hypertensive heart and chronic kidney disease with heart failure and stage 1 through stage 4 chronic kidney disease, or unspecified chronic kidney disease (principal); I50.41 Acute combined systolic (congestive) and diastolic (congestive) heart failure; N18.6 End stage renal disease; N18.4 Chronic kidney disease, stage 4 (severe); Z68.41 Body mass index [BMI] 40.0-44.9, adult; R18.8 Other ascites; J84.9 Interstitial pulmonary disease, unspecified; Z91.19 Patient's noncompliance with other medical treatment and regimen; E11.65 Type 2 diabetes mellitus with hyperglycemia; K74.60 Unspecified cirrhosis of liver; K75.81 Nonalcoholic steatohepatitis (NASH); E66.01 Morbid (severe) obesity due to excess calories; Z20.822 Contact with and (suspected) exposure to COVID-19; L60.8 Other nail disorders; Z91.14 Patient's other noncompliance with medication regimen; I25.10 Atherosclerotic heart disease of native coronary artery without angina pectoris; E11.22 Type 2 diabetes mellitus with diabetic chronic kidney disease; I13.2 Hypertensive heart and chronic kidney disease with heart failure and with stage 5 chronic kidney disease, or end stage renal disease; Z99.2 Dependence on renal dialysis; D63.8 Anemia in other chronic diseases classified elsewhere; H57.12 Ocular pain, left eye
CPT/HCPCS: 36415; 36556; 36558; 70450; 71045; 74470; 76700; 76937; 77001; 80048; 80053; 80061; 81001; 82105; 82550; 82553; 82948; 83036; 83735; 83880; 84100; 84443; 84484; 85025; 85610; 85730; 86706; 86707; 87086; 90962; 93005; 93306; 94640; 94660; 97139; 99152; 99153; 99284; C1752; C1769; C1892; J0696; J1644; J1650; J1815; J1940; J2001; J2150; J2250; J3010; J3475; J7030; J7050; P9047; U0002

== ENCOUNTER 2021-02-06 15:31 | Inpatient (IN) | payer MEDICARE ==
[~2021-02-06] VITALS: Ht 172.7 cm; Wt 108.9 kg
[~2021-02-06 15:31] MED LIST changes: +LANTUS100 UNIT/1 SQ; +NOVOLOG100 UNIT/1 SC; +trilogy
[2021-02-06] MEDS ORDERED: ASPIRIN 81 MG CHEW TAB PO ONE (15:45)
[2021-02-06 16:11] LABS: BASOPHILS # (AUTO) 0.1 (0.0-0.1); BASOPHILS % 0.6 % (0.0-1.0); EOSINOPHILS # (AUTO) 0.1 (0.0-0.4); EOSINOPHILS % 0.9 % (0.0-6.0); HEMATOCRIT 39.5 % (38.2-49.6); HEMOGLOBIN 12.8 g/dL (14.0-18.0); LYMPHOCYTES # (AUTO) 1.4 (1.0-3.2); LYMPHOCYTES % 10.5 % (18.0-39.1); MEAN CORPUSCULAR HEMOGLOBIN 32.3 pg (28-32); MEAN CORPUSCULAR HGB CONC 32.4 g/dL (31-35); MEAN CORPUSCULAR VOLUME 99.7 fL (81-99); MONOCYTES # (AUTO) 1.3 (0.2-0.8); MONOCYTES % 9.5 % (4.4-11.3); NEUTROPHILS # (AUTO) 10.6 (2.1-6.9); NEUTROPHILS % 77.4 % (38.7-80.0); PLATELET COUNT 178 x10e3/uL (140-360); RED BLOOD COUNT 3.96 x10e6/uL (4.3-5.7); RED CELL DISTRIBUTION WIDTH 17.5 % (11.7-14.4)
[2021-02-06 16:24] LABS: ALBUMIN 3.5 g/dL (3.5-5.0); ALBUMIN/GLOBULIN RATIO 1.1 (0.8-2.0); ANION GAP 26.7 mmol/L (8-16); CALCIUM 7.6 mg/dL (8.4-10.2); CREATININE, SERUM 6.81 mg/dL (0.72-1.25)
[2021-02-06 16:30] LABS: CREATINE KINASE MB 7.1 ng/mL (0-5.0)
[2021-02-06 16:31] LABS: POTASSIUM 5.7 mmol/L (3.5-5.1)
[2021-02-06] MEDS ORDERED: INSULIN REGULAR, HUMAN 100 UNIT/1 ML IV STA (16:52)
[2021-02-06] MEDS ORDERED: DEXTROSE 50% SYRINGE 50 ML IV STA (16:52)
[2021-02-06] MEDS ORDERED: CALCIUM GLUCONATE 10% INJ 4.65 MEQ in SODIUM CHLORIDE 0.9% 50ML 50 ML IV ONE (17:00)
[2021-02-06 18:36] VITALS: BP 124/80
[2021-02-06] MEDS ORDERED: SODIUM CHLORIDE 0.9% 1000ML 0 ML ONE (19:39)
[2021-02-06 19:48] VITALS: BP 115/74
[2021-02-06 19:50] VITALS: BP 124/80
[2021-02-06 22:00] VITALS: BP 124/80
[2021-02-07] VITALS (8 sets, daily range): BP systolic 85–150; BP diastolic 57–66
[2021-02-07] MEDS ORDERED: BENZONATATE 100 MG CAP PO PRN (01:15)
[2021-02-07] MEDS ORDERED: DOCUSATE SODIUM 100 MG CAP PO PRN (01:15)
[2021-02-07] MEDS ORDERED: SIMETHICONE 80 MG CHEW PO PRN (01:15)
[2021-02-07] MEDS ORDERED: LIDOCAINE 4% PATCH TP PRN (01:15)
[2021-02-07] MEDS ORDERED: ONDANSETRON HCL INJ 2MG/ML 2ML 2 MG/ML VIAL IV PRN (01:15)
[2021-02-07] MEDS ORDERED: MELATONIN 5 MG TABLET PO PRN (01:15)
[2021-02-07] MEDS ORDERED: TRAMADOL HCL 50 MG TAB PO PRN (01:15)
[2021-02-07] MEDS ORDERED: DEXTROSE 50% SYRINGE 50 ML IV PRN ×3 (01:15→07:30)
[2021-02-07] MEDS ORDERED: DIPHENHYDRAMINE HCL 25 MG CAP PO PRN (01:15)
[2021-02-07] MEDS ORDERED: HYDRALAZINE HCL 20 MG/ML VIAL IV PRN (01:15)
[2021-02-07 02:52] LABS: CREATINE KINASE MB 6.9 ng/mL (0-5.0)
[2021-02-07 06:06] LABS: BASOPHILS # (AUTO) 0.1 (0.0-0.1); BASOPHILS % 0.7 % (0.0-1.0); EOSINOPHILS # (AUTO) 0.1 (0.0-0.4); EOSINOPHILS % 0.6 % (0.0-6.0); HEMOGLOBIN 12.6 g/dL (14.0-18.0); LYMPHOCYTES # (AUTO) 1.4 (1.0-3.2); LYMPHOCYTES % 9.6 % (18.0-39.1); MEAN CORPUSCULAR HEMOGLOBIN 31.5 pg (28-32); MEAN CORPUSCULAR HGB CONC 31.5 g/dL (31-35); MONOCYTES # (AUTO) 1.3 (0.2-0.8); MONOCYTES % 8.8 % (4.4-11.3); NEUTROPHILS # (AUTO) 11.8 (2.1-6.9); NEUTROPHILS % 79.1 % (38.7-80.0); PLATELET COUNT 186 x10e3/uL (140-360); RED CELL DISTRIBUTION WIDTH 17.4 % (11.7-14.4)
[2021-02-07 06:36] LABS: ALBUMIN 3.7 g/dL (3.5-5.0); ALBUMIN/GLOBULIN RATIO 1.2 (0.8-2.0); ANION GAP 27.1 mmol/L (8-16); CALCIUM 8.1 mg/dL (8.4-10.2); CREATININE, SERUM 6.41 mg/dL (0.72-1.25)
[2021-02-07 06:53] LABS: CHOL/HDL RATIO 3.8 (3.9-4.7); MAGNESIUM 2.3 MG/DL (1.3-2.1); PHOSPHORUS 8.4 MG/DL (2.3-4.7)
[2021-02-07 07:03] LABS: POTASSIUM 6.1 mmol/L (3.5-5.1)
[2021-02-07] MEDS: PANTOPRAZOLE SOD 40 MG TABEC PO SCH (07:30)
[2021-02-07] MEDS ORDERED: CALCIUM GLUCONATE 10% INJ 9.3 MEQ in SODIUM CHLORIDE 0.9% 100 ML 100 ML IV ONE (08:00)
[2021-02-07] MEDS ORDERED: SOD POLYSTYRENE SULFONATE SUSP 15 GM/60 ML BTL PO ONE (08:00)
[2021-02-07] MEDS ORDERED: INSULIN REGULAR, HUMAN 100 UNIT/1 ML SQ ONE (08:30)
[2021-02-07] MEDS ORDERED: SODIUM CHLORIDE 0.9% 1000ML 2,000 ML ONE (08:34)
[2021-02-07] MEDS ORDERED: SODIUM BICARBONATE 8.4% INJ 50 ML SYR IV ONE (08:45)
[2021-02-07] MEDS ORDERED: ALBUMIN 25% 12.5GM 0.25 GM/ML BTL IV PRN (09:00)
[2021-02-07] MEDS: SERTRALINE HCL 50 MG TAB PO SCH (09:00)
[2021-02-07] MEDS ORDERED: HEPARIN SOD (PORCINE) 1000 UNIT/ML SDV IV PRN (09:00)
[2021-02-07] MEDS: CLOPIDOGREL BISULFATE 75 MG TAB PO SCH (09:00)
[2021-02-07] MEDS ORDERED: MANNITOL 25% 12.5GM/50 ML VIAL IV PRN (09:00)
[2021-02-07] MEDS ORDERED: SODIUM CHLORIDE 0.9% 1000ML 2,000 ML IV PRN (09:00)
[2021-02-07] MEDS ORDERED: AMLODIPINE BESYLATE 10 MG TAB PO SCH (09:00)
[2021-02-07] MEDS ORDERED: CARVEDILOL 12.5 MG TAB PO SCH (09:00)
[2021-02-07 10:51] LABS: CREATINE KINASE MB 6.5 ng/mL (0-5.0)
[2021-02-07] MEDS: ACETAMINOPHEN 325 MG TAB PO PRN (12:03)
[2021-02-07] MEDS: SEVELAMER CARBONATE 800 MG TAB PO SCH ×2 (12:39→15:59)
[2021-02-07] MEDS: SODIUM BICARBONATE 650 MG TAB PO SCH ×2 (12:39→21:35)
[2021-02-07] MEDS: CEFTRIAXONE 2 GM in SODIUM CHLORIDE 0.9% 100 ML IV SCH (15:59)
[2021-02-07] MEDS ORDERED: INSULIN LISPRO 100 UNIT/1 ML 3ML VIAL SQ SCH ×2 (21:00→21:15)
[2021-02-07] MEDS ORDERED: INSULIN GLARGINE 100 UNITS/ML VIAL SQ SCH (21:00)
[2021-02-07] MEDS: ATORVASTATIN 40 MG TAB PO SCH (21:35)
[2021-02-08] VITALS (8 sets, daily range): BP systolic 112–147; BP diastolic 48–94
[2021-02-08] MEDS: ALBUTEROL/IPRATROPIUM 3 ML NEB NEB PRN ×3 (00:15→19:42)
[2021-02-08 05:04] LABS: BASOPHILS # (AUTO) 0.1 (0.0-0.1); BASOPHILS % 0.5 % (0.0-1.0); EOSINOPHILS # (AUTO) 0.1 (0.0-0.4); EOSINOPHILS % 0.7 % (0.0-6.0); HEMOGLOBIN 12.3 g/dL (14.0-18.0); LYMPHOCYTES % 7.1 % (18.0-39.1); MEAN CORPUSCULAR HEMOGLOBIN 31.4 pg (28-32); MEAN CORPUSCULAR HGB CONC 31.5 g/dL (31-35); MEAN CORPUSCULAR VOLUME 99.5 fL (81-99); MONOCYTES # (AUTO) 1.4 (0.2-0.8); MONOCYTES % 10.6 % (4.4-11.3); NEUTROPHILS # (AUTO) 10.9 (2.1-6.9); NEUTROPHILS % 80.4 % (38.7-80.0); PLATELET COUNT 137 x10e3/uL (140-360); RED BLOOD COUNT 3.92 x10e6/uL (4.3-5.7); RED CELL DISTRIBUTION WIDTH 17.4 % (11.7-14.4)
[2021-02-08 05:33] LABS: ALBUMIN 3.7 g/dL (3.5-5.0); ALBUMIN/GLOBULIN RATIO 1.1 (0.8-2.0); ANION GAP 26.2 mmol/L (8-16); CALCIUM 8.8 mg/dL (8.4-10.2); CREATININE, SERUM 6.07 mg/dL (0.72-1.25); POTASSIUM 5.2 mmol/L (3.5-5.1)
[2021-02-08] MEDS: PANTOPRAZOLE SOD 40 MG TABEC PO SCH (07:30)
[2021-02-08] MEDS: SEVELAMER CARBONATE 800 MG TAB PO SCH ×3 (08:39→16:17)
[2021-02-08] MEDS: SODIUM BICARBONATE 650 MG TAB PO SCH ×3 (08:40→20:53)
[2021-02-08] MEDS: SERTRALINE HCL 50 MG TAB PO SCH (08:40)
[2021-02-08] MEDS: CLOPIDOGREL BISULFATE 75 MG TAB PO SCH (08:40)
[2021-02-08] MEDS ORDERED: SOD POLYSTYRENE SULFONATE SUSP 15 GM/60 ML BTL PO NR (09:00)
[2021-02-08] MEDS ORDERED: DEXTROSE 50% SYRINGE 50 ML IV PRN (12:00)
[2021-02-08 14:39] LABS: FREE T4 (FREE THYROXINE) 0.97 ng/dL (0.8-1.8); THYROID STIMULATING HORMONE 2.665 uIU/mL (0.350-4.940)
[2021-02-08] MEDS: CEFTRIAXONE 2 GM in SODIUM CHLORIDE 0.9% 100 ML IV SCH (15:50)
[2021-02-08] MEDS: INSULIN LISPRO 100 UNIT/1 ML 3ML VIAL SQ SCH ×3 (16:17→21:00)
[2021-02-08] MEDS ORDERED: INSULIN LISPRO 100 UNIT/1 ML 3ML VIAL SQ SCH (16:30)
[2021-02-08] MEDS: ATORVASTATIN 40 MG TAB PO SCH (20:53)
[2021-02-08] MEDS ORDERED: INSULIN GLARGINE 100 UNITS/ML VIAL SQ SCH ×2 (21:00)
[2021-02-09] MEDS: ALBUTEROL/IPRATROPIUM 3 ML NEB NEB PRN ×3 (00:02→15:12)
[2021-02-09 01:19] VITALS: BP 119/77
[2021-02-09 05:00] VITALS: BP 106/63
[2021-02-09 05:12] LABS: BASOPHILS % 0.4 % (0.0-1.0); EOSINOPHILS % 0.4 % (0.0-6.0); HEMATOCRIT 37.3 % (38.2-49.6); HEMOGLOBIN 11.8 g/dL (14.0-18.0); LYMPHOCYTES # (AUTO) 0.6 (1.0-3.2); LYMPHOCYTES % 6.1 % (18.0-39.1); MEAN CORPUSCULAR HEMOGLOBIN 31.6 pg (28-32); MEAN CORPUSCULAR HGB CONC 31.6 g/dL (31-35); MONOCYTES # (AUTO) 1.2 (0.2-0.8); MONOCYTES % 12.4 % (4.4-11.3); NEUTROPHILS # (AUTO) 7.6 (2.1-6.9); PLATELET COUNT 121 x10e3/uL (140-360); RED BLOOD COUNT 3.73 x10e6/uL (4.3-5.7); RED CELL DISTRIBUTION WIDTH 17.3 % (11.7-14.4)
[2021-02-09 05:37] LABS: ANION GAP 24.3 mmol/L (8-16); CALCIUM 8.6 mg/dL (8.4-10.2); CREATININE, SERUM 5.68 mg/dL (0.72-1.25); MAGNESIUM 2.4 MG/DL (1.3-2.1); PHOSPHORUS 8.5 MG/DL (2.3-4.7); POTASSIUM 4.3 mmol/L (3.5-5.1)
[2021-02-09] MEDS: ACETAMINOPHEN 325 MG TAB PO PRN (06:00)
[2021-02-09 08:00] VITALS: BP 125/60
[2021-02-09 08:07] VITALS: BP 125/60
[2021-02-09] MEDS: CLOPIDOGREL BISULFATE 75 MG TAB PO SCH (08:34)
[2021-02-09] MEDS: SEVELAMER CARBONATE 800 MG TAB PO SCH ×2 (08:34→12:26)
[2021-02-09] MEDS: SODIUM BICARBONATE 650 MG TAB PO SCH (08:34)
[2021-02-09] MEDS: SERTRALINE HCL 50 MG TAB PO SCH (08:34)
[2021-02-09] MEDS: PANTOPRAZOLE SOD 40 MG TABEC PO SCH (08:37)
[2021-02-09] MEDS: INSULIN LISPRO 100 UNIT/1 ML 3ML VIAL SQ SCH ×5 (08:45→15:24)
[2021-02-09 11:43] VITALS: BP 137/70
[2021-02-09] MEDS ORDERED: LEVEMIR FL100 UNIT/1 SC ×2 (15:26)
[2021-02-09] MEDS ORDERED: NOVOLOG100 UNIT/1 SC (15:27)
[2021-02-09] MEDS ORDERED: INSULIN LISPRO 100 UNIT/1 ML 3ML VIAL SQ SCH (16:30)
[2021-02-09] MEDS ORDERED: INSULIN GLARGINE 100 UNITS/ML VIAL SQ SCH (21:00)
== END 2021-02-09 15:54 | disposition home or self-care (01) | DRG 640 ==
LOC: ER 15:43 → ERHOLD 17:05 → MED/SURG3 18:20
PROVIDERS: ADMIT Internal Medicine; ATTEND Internal Medicine
PROC: 5A1D70Z Performance of Urinary Filtration, Intermittent, Less than 6 Hours Per Day (ICD-10-PCS; principal; 2021-02-06)
DX: E87.5 Hyperkalemia (principal); J80 Acute respiratory distress syndrome; N18.6 End stage renal disease; I13.2 Hypertensive heart and chronic kidney disease with heart failure and with stage 5 chronic kidney disease, or end stage renal disease; E87.70 Fluid overload, unspecified; E11.22 Type 2 diabetes mellitus with diabetic chronic kidney disease; Z99.2 Dependence on renal dialysis; Z91.15 Patient's noncompliance with renal dialysis; Z79.899 Other long term (current) drug therapy; D63.1 Anemia in chronic kidney disease; G47.33 Obstructive sleep apnea (adult) (pediatric); E11.65 Type 2 diabetes mellitus with hyperglycemia; J44.9 Chronic obstructive pulmonary disease, unspecified; I25.10 Atherosclerotic heart disease of native coronary artery without angina pectoris; I50.9 Heart failure, unspecified; Z95.810 Presence of automatic (implantable) cardiac defibrillator; F32.9 Major depressive disorder, single episode, unspecified; F41.9 Anxiety disorder, unspecified; Z20.822 Contact with and (suspected) exposure to COVID-19
CPT/HCPCS: 36415; 71045; 80048; 80053; 80061; 82550; 82553; 82948; 83036; 83735; 83880; 84100; 84439; 84443; 84484; 85025; 86705; 86706; 87340; 93005; 94640; 97139; 99284; J0610; J0696; J1644; J1815; J1817; J7030; J7050; J7799; U0002

== ENCOUNTER 2021-03-12 16:20 | Emergency (ER) | payer MEDICARE ==
[~2021-03-12] VITALS: Ht 172.7 cm; Wt 108.9 kg
[~2021-03-12 16:20] MED LIST changes: +LEVEMIR FL100 UNIT/1 SC
[2021-03-12 17:22] LABS: BASOPHILS % 0.3 % (0.0-1.0); EOSINOPHILS # (AUTO) 0.2 (0.0-0.4); EOSINOPHILS % 2.5 % (0.0-6.0); HEMOGLOBIN 11.1 g/dL (14.0-18.0); LYMPHOCYTES # (AUTO) 0.9 (1.0-3.2); LYMPHOCYTES % 10.5 % (18.0-39.1); MEAN CORPUSCULAR HEMOGLOBIN 31.9 pg (28-32); MEAN CORPUSCULAR HGB CONC 30.8 g/dL (31-35); MEAN CORPUSCULAR VOLUME 103.4 fL (81-99); MONOCYTES # (AUTO) 0.7 (0.2-0.8); MONOCYTES % 7.9 % (4.4-11.3); NEUTROPHILS % 78.4 % (38.7-80.0); PLATELET COUNT 169 x10e3/uL (140-360); RED BLOOD COUNT 3.48 x10e6/uL (4.3-5.7); RED CELL DISTRIBUTION WIDTH 17.8 % (11.7-14.4)
[2021-03-12 17:33] LABS: ALBUMIN 3.5 g/dL (3.5-5.0); ALBUMIN/GLOBULIN RATIO 1.1 (0.8-2.0); ANION GAP 23.9 mmol/L (8-16); CALCIUM 8.1 mg/dL (8.4-10.2); CREATININE, SERUM 7.11 mg/dL (0.72-1.25); POTASSIUM 4.9 mmol/L (3.5-5.1)
[2021-03-12 17:39] LABS: CREATINE KINASE MB 8.9 ng/mL (0-5.0)
== END 2021-03-12 20:20 | disposition home or self-care (01) ==
LOC: ER 17:06
DX: R25.1 Tremor, unspecified (principal); E11.65 Type 2 diabetes mellitus with hyperglycemia; I12.9 Hypertensive chronic kidney disease with stage 1 through stage 4 chronic kidney disease, or unspecified chronic kidney disease; E11.22 Type 2 diabetes mellitus with diabetic chronic kidney disease; N18.9 Chronic kidney disease, unspecified; Z99.2 Dependence on renal dialysis; Z95.810 Presence of automatic (implantable) cardiac defibrillator; Z95.5 Presence of coronary angioplasty implant and graft; Z20.822 Contact with and (suspected) exposure to COVID-19
CPT/HCPCS: 36415; 70450; 71045; 80053; 82550; 82553; 84484; 85025; 99284; U0002

== ENCOUNTER 2021-05-14 05:59 | Inpatient (IN) | payer MEDICARE ==
[~2021-05-14] VITALS: Ht 172.7 cm; Wt 108.9 kg
[2021-05-14] VITALS (7 sets, daily range): BP systolic 94–137; BP diastolic 49–95
[2021-05-14 06:30] LABS: BASOPHILS % 0.1 % (0.0-1.0); HEMATOCRIT 33.3 % (38.2-49.6); HEMOGLOBIN 10.5 g/dL (14.0-18.0); LYMPHOCYTES # (AUTO) 0.4 (1.0-3.2); LYMPHOCYTES % 1.7 % (18.0-39.1); MEAN CORPUSCULAR HEMOGLOBIN 31.7 pg (28-32); MEAN CORPUSCULAR HGB CONC 31.5 g/dL (31-35); MEAN CORPUSCULAR VOLUME 100.6 fL (81-99); MONOCYTES % 4.8 % (4.4-11.3); NEUTROPHILS # (AUTO) 18.8 (2.1-6.9); NEUTROPHILS % 92.6 % (38.7-80.0); PLATELET COUNT 174 x10e3/uL (140-360); RED BLOOD COUNT 3.31 x10e6/uL (4.3-5.7); RED CELL DISTRIBUTION WIDTH 15.8 % (11.7-14.4)
[2021-05-14] MEDS ORDERED: Vancomycin IV 1 GM in SODIUM CHLORIDE 0.9% 250ML 250 ML IV STA (06:52)
[2021-05-14 06:58] LABS: ALBUMIN 3.1 g/dL (3.5-5.0); ALBUMIN/GLOBULIN RATIO 0.8 (0.8-2.0); ANION GAP 26.8 mmol/L (8-16); CREATININE, SERUM 8.62 mg/dL (0.72-1.25); POTASSIUM 5.8 mmol/L (3.5-5.1)
[2021-05-14] MEDS ORDERED: PIPERACILLIN/TAZOBACTAM 4.5 GM in SODIUM CHLORIDE 0.9% 100 ML IV ONE (07:00)
[2021-05-14] MEDS ORDERED: CALCIUM GLUCONATE 10% INJ 4.65 MEQ in SODIUM CHLORIDE 0.9% 50ML 50 ML IV ONE (07:30)
[2021-05-14] MEDS ORDERED: DEXTROSE 50% SYRINGE 50 ML IV ONE (07:30)
[2021-05-14] MEDS ORDERED: FUROSEMIDE INJ 10 MG/ML 4 ML VIAL IV ONE (07:30)
[2021-05-14] MEDS ORDERED: ALBUTEROL/IPRATROPIUM 3 ML NEB NEB ONE (07:30)
[2021-05-14] MEDS ORDERED: INSULIN REGULAR, HUMAN 100 UNIT/1 ML IV ONE (07:30)
[2021-05-14] MEDS ORDERED: DEXTROSE 10% 1,000 ML IV ONE (07:45)
[2021-05-14] MEDS ORDERED: DIPHENHYDRAMINE HCL 25 MG CAP PO PRN (11:15)
[2021-05-14] MEDS ORDERED: HYDRALAZINE HCL 20 MG/ML VIAL IV PRN (11:15)
[2021-05-14] MEDS ORDERED: DOCUSATE SODIUM 100 MG CAP PO PRN (11:15)
[2021-05-14] MEDS ORDERED: DEXTROSE 50% SYRINGE 50 ML IV PRN ×2 (11:15)
[2021-05-14] MEDS ORDERED: SIMETHICONE 80 MG CHEW PO PRN (11:15)
[2021-05-14] MEDS ORDERED: ACETAMINOPHEN 325 MG TAB PO PRN (11:15)
[2021-05-14] MEDS ORDERED: LIDOCAINE 4% PATCH TP PRN (11:15)
[2021-05-14] MEDS ORDERED: ONDANSETRON HCL INJ 2MG/ML 2ML 2 MG/ML VIAL IV PRN (11:15)
[2021-05-14] MEDS ORDERED: CEFEPIME HCL 1 GM VIAL ONE (13:22)
[2021-05-14] MEDS: CEFEPIME 1 GM in SODIUM CHLORIDE 0.9% 50ML 50 ML IV SCH (15:20)
[2021-05-14 15:31] LABS: FREE T4 (FREE THYROXINE) 0.76 ng/dL (0.8-1.8); THYROID STIMULATING HORMONE 2.105 uIU/mL (0.350-4.940)
[2021-05-14] MEDS: INSULIN LISPRO 100 UNIT/1 ML 3ML VIAL SQ SCH ×2 (16:19→21:32)
[2021-05-14] MEDS ORDERED: HEPARIN SOD (PORCINE) 5,000 UNIT/ML VIAL SC SCH (21:00)
[2021-05-14] MEDS ORDERED: NON-FORMULARY MEDICATION (Atorvastatin Calcium 80 MG) PO SCH (21:00)
[2021-05-14] MEDS: Vancomycin IV 500 MG in SODIUM CHLORIDE 0.9% 100 ML IV SCH (21:36)
[2021-05-14] MEDS: ATORVASTATIN 40 MG TAB PO SCH (21:36)
[2021-05-14] MEDS: HYDROCODONE/APAP 5MG-325MG TAB PO PRN (21:37)
[2021-05-15] VITALS (7 sets, daily range): BP systolic 103–116; BP diastolic 40–71
[2021-05-15] MEDS: MELATONIN 5 MG TABLET PO PRN ×2 (01:08→20:19)
[2021-05-15] MEDS: BENZONATATE 100 MG CAP PO PRN ×2 (01:08→20:19)
[2021-05-15 05:21] LABS: BASOPHILS # (AUTO) 0.1 (0.0-0.1); BASOPHILS % 0.3 % (0.0-1.0); EOSINOPHILS # (AUTO) 0.2 (0.0-0.4); EOSINOPHILS % 1.1 % (0.0-6.0); HEMOGLOBIN 10.8 g/dL (14.0-18.0); LYMPHOCYTES % 5.4 % (18.0-39.1); MEAN CORPUSCULAR HEMOGLOBIN 31.7 pg (28-32); MEAN CORPUSCULAR HGB CONC 31.8 g/dL (31-35); MEAN CORPUSCULAR VOLUME 99.7 fL (81-99); MONOCYTES # (AUTO) 1.6 (0.2-0.8); MONOCYTES % 8.4 % (4.4-11.3); NEUTROPHILS # (AUTO) 15.8 (2.1-6.9); NEUTROPHILS % 84.1 % (38.7-80.0); PLATELET COUNT 164 x10e3/uL (140-360); RED BLOOD COUNT 3.41 x10e6/uL (4.3-5.7); RED CELL DISTRIBUTION WIDTH 15.8 % (11.7-14.4)
[2021-05-15] MEDS: HYDROCODONE/APAP 5MG-325MG TAB PO PRN (05:39)
[2021-05-15 05:45] LABS: ANION GAP 23.2 mmol/L (8-16); CALCIUM 9.6 mg/dL (8.4-10.2); CREATININE, SERUM 6.72 mg/dL (0.72-1.25); MAGNESIUM 2.1 MG/DL (1.3-2.1); PHOSPHORUS 9.2 MG/DL (2.3-4.7); POTASSIUM 5.2 mmol/L (3.5-5.1)
[2021-05-15 06:21] LABS: THYROID STIMULATING HORMONE 2.591 uIU/mL (0.350-4.940)
[2021-05-15 07:02] LABS: CLARITY,URINE CLEAR (CLEAR); COLOR,URINE YELLOW (YELLOW)
[2021-05-15 07:03] LABS: KETONES,URINE TRACE (NEGATIVE); LEUKOCYTE ESTERASE ,URINE NEGATIVE (NEGATIVE); NITRITE,URINE NEGATIVE (NEGATIVE); PROTEIN,URINE DIPSTICK TRACE (NEGATIVE); URINE UROBILINOGEN 0.2 mg/dL (0.2 - 1)
[2021-05-15 07:04] LABS: BACTERIA,URINE MANY /HPF; EPITHELIAL CELLS,URINE FEW /LPF; RBC,URINE 0-5 /HPF (0-5); WBC,URINE (MAN) 0-5 /HPF (0-5)
[2021-05-15] MEDS: PANTOPRAZOLE SOD 40 MG TABEC PO SCH (07:30)
[2021-05-15] MEDS: INSULIN LISPRO 100 UNIT/1 ML 3ML VIAL SQ SCH ×5 (07:30→20:18)
[2021-05-15] MEDS ORDERED: NON-FORMULARY MEDICATION (Sertraline Hcl 25 MG) PO SCH (09:00)
[2021-05-15] MEDS ORDERED: CLOPIDOGREL BISULFATE 75 MG TAB PO SCH (09:00)
[2021-05-15] MEDS: SERTRALINE HCL 50 MG TAB PO SCH (09:00)
[2021-05-15 09:15] LABS: CHOL/HDL RATIO 4.5 (3.9-4.7)
[2021-05-15] MEDS ORDERED: LIDOCAINE HCL 2% LOCAL 20 ML VIAL ONE (10:36)
[2021-05-15] MEDS ORDERED: IOPAMIDOL 370 MG/ML 200 ML INFUS..BTL INJ ONE (10:36)
[2021-05-15] MEDS ORDERED: FENTANYL CITRATE/PF 100MCG/2 ML INJ ONE (10:36)
[2021-05-15] MEDS ORDERED: MIDAZOLAM HCL 2 MG/2 ML VIAL ONE ×2 (10:36→12:22)
[2021-05-15] MEDS ORDERED: HEPARIN SOD (PORCINE) 1000 UNIT/ML 30ML ONE (10:36)
[2021-05-15] MEDS ORDERED: IOPAMIDOL 300MG/ML 100 ML INFUS..BTL IV ONE ×2 (10:36→12:17)
[2021-05-15] MEDS ORDERED: HEPARIN SOD/SOD CHLORIDE 2,000 ML ONE (10:36)
[2021-05-15] MEDS ORDERED: NITROGLYCERIN/D5W 200 MCG/ML 250 ML ONE (10:37)
[2021-05-15] MEDS ORDERED: SODIUM CHLORIDE 0.9% 1000ML 1,000 ML ONE (10:37)
[2021-05-15] MEDS ORDERED: CLOPIDOGREL BISULFATE 75 MG TAB ONE ×2 (12:55→13:26)
[2021-05-15] MEDS ORDERED: HYDROMORPHONE 2MG/ML 2 MG/ML ML ONE (12:55)
[2021-05-15] MEDS ORDERED: ASPIRIN 325 MG TAB ONE (13:27)
[2021-05-15] MEDS: CEFEPIME 1 GM in SODIUM CHLORIDE 0.9% 50ML 50 ML IV SCH (14:47)
[2021-05-15] MEDS: Vancomycin IV 500 MG in SODIUM CHLORIDE 0.9% 100 ML IV SCH (17:24)
[2021-05-15] MEDS: ATORVASTATIN 40 MG TAB PO SCH (20:19)
[2021-05-15] MEDS: INSULIN GLARGINE 100 UNITS/ML VIAL SQ SCH (20:19)
[2021-05-16] VITALS (9 sets, daily range): BP systolic 95–122; BP diastolic 55–70
[2021-05-16 06:14] LABS: BASOPHILS # (AUTO) 0.1 (0.0-0.1); BASOPHILS % 0.3 % (0.0-1.0); EOSINOPHILS # (AUTO) 0.1 (0.0-0.4); EOSINOPHILS % 0.7 % (0.0-6.0); HEMATOCRIT 31.3 % (38.2-49.6); HEMOGLOBIN 9.9 g/dL (14.0-18.0); LYMPHOCYTES # (AUTO) 0.9 (1.0-3.2); LYMPHOCYTES % 5.1 % (18.0-39.1); MEAN CORPUSCULAR HEMOGLOBIN 31.6 pg (28-32); MEAN CORPUSCULAR HGB CONC 31.6 g/dL (31-35); MONOCYTES # (AUTO) 1.3 (0.2-0.8); MONOCYTES % 7.6 % (4.4-11.3); NEUTROPHILS # (AUTO) 14.3 (2.1-6.9); NEUTROPHILS % 85.5 % (38.7-80.0); PLATELET COUNT 148 x10e3/uL (140-360); RED BLOOD COUNT 3.13 x10e6/uL (4.3-5.7); RED CELL DISTRIBUTION WIDTH 15.6 % (11.7-14.4)
[2021-05-16 06:48] LABS: ALBUMIN 2.9 g/dL (3.5-5.0); ALBUMIN/GLOBULIN RATIO 0.7 (0.8-2.0); ANION GAP 24.5 mmol/L (8-16); CALCIUM 9.5 mg/dL (8.4-10.2); CREATININE, SERUM 6.94 mg/dL (0.72-1.25); POTASSIUM 5.5 mmol/L (3.5-5.1)
[2021-05-16 07:05] LABS: MAGNESIUM 2.4 MG/DL (1.3-2.1); PHOSPHORUS 9.4 MG/DL (2.3-4.7)
[2021-05-16] MEDS: INSULIN LISPRO 100 UNIT/1 ML 3ML VIAL SQ SCH ×7 (07:30→22:17)
[2021-05-16] MEDS: PANTOPRAZOLE SOD 40 MG TABEC PO SCH (08:22)
[2021-05-16] MEDS: CLOPIDOGREL BISULFATE 75 MG TAB PO SCH (08:23)
[2021-05-16] MEDS: SERTRALINE HCL 50 MG TAB PO SCH (08:23)
[2021-05-16] MEDS ORDERED: SODIUM CHLORIDE 0.9% 1000ML 2,000 ML ONE (08:31)
[2021-05-16] MEDS: CEFEPIME 1 GM in SODIUM CHLORIDE 0.9% 50ML 50 ML IV SCH (13:36)
[2021-05-16] MEDS: HYDROCODONE/APAP 5MG-325MG TAB PO PRN ×2 (13:36→21:15)
[2021-05-16] MEDS: ALBUTEROL/IPRATROPIUM 3 ML NEB NEB PRN (19:45)
[2021-05-16] MEDS: ATORVASTATIN 40 MG TAB PO SCH (22:16)
[2021-05-16] MEDS: INSULIN GLARGINE 100 UNITS/ML VIAL SQ SCH (22:19)
[2021-05-17] VITALS (8 sets, daily range): BP systolic 91–117; BP diastolic 47–77
[2021-05-17] MEDS: ALBUTEROL/IPRATROPIUM 3 ML NEB NEB PRN (00:08)
[2021-05-17 04:59] LABS: BASOPHILS % 0.2 % (0.0-1.0); EOSINOPHILS # (AUTO) 0.1 (0.0-0.4); EOSINOPHILS % 0.7 % (0.0-6.0); HEMATOCRIT 31.1 % (38.2-49.6); HEMOGLOBIN 9.9 g/dL (14.0-18.0); LYMPHOCYTES # (AUTO) 0.7 (1.0-3.2); MEAN CORPUSCULAR HEMOGLOBIN 31.6 pg (28-32); MEAN CORPUSCULAR HGB CONC 31.8 g/dL (31-35); MEAN CORPUSCULAR VOLUME 99.4 fL (81-99); MONOCYTES # (AUTO) 1.1 (0.2-0.8); MONOCYTES % 8.1 % (4.4-11.3); NEUTROPHILS # (AUTO) 11.7 (2.1-6.9); NEUTROPHILS % 85.3 % (38.7-80.0); PLATELET COUNT 155 x10e3/uL (140-360); RED BLOOD COUNT 3.13 x10e6/uL (4.3-5.7); RED CELL DISTRIBUTION WIDTH 15.5 % (11.7-14.4)
[2021-05-17 05:36] LABS: ANION GAP 21.3 mmol/L (8-16); CALCIUM 9.2 mg/dL (8.4-10.2); CREATININE, SERUM 5.73 mg/dL (0.72-1.25); POTASSIUM 4.3 mmol/L (3.5-5.1)
[2021-05-17] MEDS: CLOPIDOGREL BISULFATE 75 MG TAB PO SCH (08:12)
[2021-05-17] MEDS: SERTRALINE HCL 50 MG TAB PO SCH (08:12)
[2021-05-17] MEDS: PANTOPRAZOLE SOD 40 MG TABEC PO SCH (08:13)
[2021-05-17] MEDS: INSULIN LISPRO 100 UNIT/1 ML 3ML VIAL SQ SCH ×7 (09:17→20:20)
[2021-05-17] MEDS: CEFEPIME 1 GM in SODIUM CHLORIDE 0.9% 50ML 50 ML IV SCH (13:35)
[2021-05-17] MEDS ORDERED: HUMALOG KW200 UNIT/1 SQ (16:20)
[2021-05-17] MEDS ORDERED: LANTUS 3ML100 UNITS/ SQ (16:21)
[2021-05-17] MEDS ORDERED: ASPIRIN81 MG PO (16:25)
[2021-05-17] MEDS ORDERED: CLEOCIN HCL300 MG PO (16:25)
[2021-05-17 18:00] LABS: BASOPHILS % 0.2 % (0.0-1.0); EOSINOPHILS # (AUTO) 0.1 (0.0-0.4); EOSINOPHILS % 0.6 % (0.0-6.0); HEMATOCRIT 29.6 % (38.2-49.6); HEMOGLOBIN 9.6 g/dL (14.0-18.0); LYMPHOCYTES # (AUTO) 0.6 (1.0-3.2); LYMPHOCYTES % 3.9 % (18.0-39.1); MEAN CORPUSCULAR HEMOGLOBIN 31.7 pg (28-32); MEAN CORPUSCULAR HGB CONC 32.4 g/dL (31-35); MEAN CORPUSCULAR VOLUME 97.7 fL (81-99); MONOCYTES # (AUTO) 1.2 (0.2-0.8); MONOCYTES % 7.9 % (4.4-11.3); NEUTROPHILS # (AUTO) 12.5 (2.1-6.9); NEUTROPHILS % 85.7 % (38.7-80.0); PLATELET COUNT 144 x10e3/uL (140-360); RED BLOOD COUNT 3.03 x10e6/uL (4.3-5.7); RED CELL DISTRIBUTION WIDTH 15.5 % (11.7-14.4)
[2021-05-17] MEDS: HYDROCODONE/APAP 5MG-325MG TAB PO PRN (20:00)
[2021-05-17] MEDS: ATORVASTATIN 40 MG TAB PO SCH (20:19)
[2021-05-17] MEDS: INSULIN GLARGINE 100 UNITS/ML VIAL SQ SCH (20:20)
[2021-05-18] MEDS: HYDROCODONE/APAP 5MG-325MG TAB PO PRN ×2 (02:15→10:02)
[2021-05-18 05:29] VITALS: BP 138/88
[2021-05-18 06:23] LABS: BASOPHILS # (AUTO) 0.1 (0.0-0.1); BASOPHILS % 0.4 % (0.0-1.0); EOSINOPHILS # (AUTO) 0.2 (0.0-0.4); EOSINOPHILS % 1.5 % (0.0-6.0); HEMATOCRIT 30.4 % (38.2-49.6); HEMOGLOBIN 9.7 g/dL (14.0-18.0); LYMPHOCYTES # (AUTO) 0.7 (1.0-3.2); LYMPHOCYTES % 5.3 % (18.0-39.1); MEAN CORPUSCULAR HEMOGLOBIN 31.7 pg (28-32); MEAN CORPUSCULAR HGB CONC 31.9 g/dL (31-35); MEAN CORPUSCULAR VOLUME 99.3 fL (81-99); MONOCYTES # (AUTO) 1.3 (0.2-0.8); MONOCYTES % 9.1 % (4.4-11.3); NEUTROPHILS # (AUTO) 11.6 (2.1-6.9); NEUTROPHILS % 82.8 % (38.7-80.0); PLATELET COUNT 160 x10e3/uL (140-360); RED BLOOD COUNT 3.06 x10e6/uL (4.3-5.7); RED CELL DISTRIBUTION WIDTH 15.6 % (11.7-14.4)
[2021-05-18 06:41] LABS: ANION GAP 22.4 mmol/L (8-16); CALCIUM 9.5 mg/dL (8.4-10.2); CREATININE, SERUM 6.72 mg/dL (0.72-1.25); POTASSIUM 4.4 mmol/L (3.5-5.1)
[2021-05-18] MEDS: INSULIN LISPRO 100 UNIT/1 ML 3ML VIAL SQ SCH ×4 (07:30→11:30)
[2021-05-18 08:14] VITALS: BP 90/74
[2021-05-18] MEDS ORDERED: ASPIRIN 81 MG ENTERIC COATED PO SCH (09:00)
[2021-05-18] MEDS: CLOPIDOGREL BISULFATE 75 MG TAB PO SCH (09:14)
[2021-05-18] MEDS: PANTOPRAZOLE SOD 40 MG TABEC PO SCH (09:14)
[2021-05-18] MEDS: SERTRALINE HCL 50 MG TAB PO SCH (09:14)
[2021-05-18 10:16] VITALS: BP 90/74
[2021-05-18] MEDS ORDERED: HEPARIN SOD (PORCINE) 1000 UNIT/ML SDV ONE (12:42)
[2021-05-18 13:02] VITALS: BP 112/67
[2021-05-18] MEDS ORDERED: HEPARIN SOD (PORCINE) 1000 UNIT/ML SDV IV PRN (14:30)
[2021-05-18] MEDS: CEFEPIME 1 GM in SODIUM CHLORIDE 0.9% 50ML 50 ML IV SCH (14:46)
== END 2021-05-18 18:26 | disposition home or self-care (01) | DRG 853 ==
LOC: ER 06:08 → ERHOLD 07:41 → IMCU 09:41
PROVIDERS: ADMIT Internal Medicine; ATTEND Internal Medicine
PROC: 4A023N7 Measurement of Cardiac Sampling and Pressure, Left Heart, Percutaneous Approach (ICD-10-PCS; principal; 2021-05-15)
PROC: 047 Lower Arteries, Dilation (ICD-10-PCS; 2021-05-15)
PROC: 047H3D1 Dilation of Right External Iliac Artery with Intraluminal Device, using Drug-Coated Balloon, Percutaneous Approach (ICD-10-PCS; 2021-05-15)
PROC: 047L3Z1 Dilation of Left Femoral Artery using Drug-Coated Balloon, Percutaneous Approach (ICD-10-PCS; 2021-05-15)
PROC: 047Q3Z1 Dilation of Left Anterior Tibial Artery using Drug-Coated Balloon, Percutaneous Approach (ICD-10-PCS; 2021-05-15)
PROC: B2111ZZ Fluoroscopy of Multiple Coronary Arteries using Low Osmolar Contrast (ICD-10-PCS; 2021-05-15)
PROC: B2151ZZ Fluoroscopy of Left Heart using Low Osmolar Contrast (ICD-10-PCS; 2021-05-15)
PROC: B41D1ZZ Fluoroscopy of Aorta and Bilateral Lower Extremity Arteries using Low Osmolar Contrast (ICD-10-PCS; 2021-05-15)
DX: A41.9 Sepsis, unspecified organism (principal); G93.41 Metabolic encephalopathy; J96.21 Acute and chronic respiratory failure with hypoxia; I50.43 Acute on chronic combined systolic (congestive) and diastolic (congestive) heart failure; N18.6 End stage renal disease; I13.2 Hypertensive heart and chronic kidney disease with heart failure and with stage 5 chronic kidney disease, or end stage renal disease; L97.929 Non-pressure chronic ulcer of unspecified part of left lower leg with unspecified severity; L97.919 Non-pressure chronic ulcer of unspecified part of right lower leg with unspecified severity; L03.116 Cellulitis of left lower limb; L03.115 Cellulitis of right lower limb; E87.2 Acidosis; E11.649 Type 2 diabetes mellitus with hypoglycemia without coma; I70.248 Atherosclerosis of native arteries of left leg with ulceration of other part of lower leg; I70.238 Atherosclerosis of native arteries of right leg with ulceration of other part of lower leg; L89.152 Pressure ulcer of sacral region, stage 2; E11.22 Type 2 diabetes mellitus with diabetic chronic kidney disease; I50.9 Heart failure, unspecified; Z99.2 Dependence on renal dialysis; Z95.5 Presence of coronary angioplasty implant and graft; E87.5 Hyperkalemia; E11.622 Type 2 diabetes mellitus with other skin ulcer; E66.01 Morbid (severe) obesity due to excess calories; Z91.19 Patient's noncompliance with other medical treatment and regimen; E78.00 Pure hypercholesterolemia, unspecified; I25.10 Atherosclerotic heart disease of native coronary artery without angina pectoris; Z95.810 Presence of automatic (implantable) cardiac defibrillator; E11.51 Type 2 diabetes mellitus with diabetic peripheral angiopathy without gangrene; Z68.36 Body mass index [BMI] 36.0-36.9, adult; J44.9 Chronic obstructive pulmonary disease, unspecified; Z87.891 Personal history of nicotine dependence; Z79.4 Long term (current) use of insulin; E11.42 Type 2 diabetes mellitus with diabetic polyneuropathy; Z20.822 Contact with and (suspected) exposure to COVID-19
CPT/HCPCS: 36247; 36415; 37221; 37223; 37224; 37228; 71045; 75710; 76937; 80048; 80053; 80061; 81001; 82948; 83036; 83605; 83735; 84100; 84439; 84443; 85025; 86705; 86706; 87040; 87340; 90962; 93005; 93306; 93925; 94640; 94660; 97139; 99152; 99153; 99251; 99285; C1725; C1760; C1766; C1769; C1876; C1887; J0610; J0692; J1644; J1815; J1817; J1940; J2001; J2250; J2543; J3010; J3370; J7030; J7050; J7799; Q9967; U0002